=== PATIENT | female | born 1965 | race Caucasian/White ===

== ENCOUNTER → 2017-08-07 15:24 | Outpatient (CLI) | payer OTHER, SELFPAY ==
[2017-08-07 17:53] LABS: Free T3 2.7 pg/mL (2.18-3.98); T4 Free Direct 1.32 ng/dL (0.76-1.46); Thyroid Stim Hormone (TSH) 0.22 uIU/mL (0.358-3.74)
== END ==
PROVIDERS: Family Provider Family Medicine; PCP Family Medicine; Visit Provider Nurse Practitioner
DX: E03.9 Hypothyroidism, unspecified (principal)
CPT/HCPCS: 36415; 84439; 84443; 84481

== ENCOUNTER → 2017-12-25 12:57 | Outpatient (CLI) | payer OTHER, SELFPAY ==
--- NOTE | 2017-12-25 14:58 | PFTCOMP ---
COMPLETE PULMONARY FUNCTION TEST INTERPRETATION Brief HPI: Patient is a 52 year old female, currently under the care of myself, who presents to [facility] for complete pulmonary function tests secondary to diagnosis of COPD. Respiratory therapist reports good effort and reproducible results. Interpretation: Forced expiration spirometry shows a moderate large airways obstructive ventilatory defect with an FEV1 of 60% predicted. There is no significant bronchodilator response by ATS criteria. Spirograms are of good quality and plateau slowly, indicating slowly emptying areas of the lungs. The respiratory flow volume loop shows decreased expiratory flow rates at all lung volumes consistent with airway obstruction. Lung volumes by body plethysmography show a normal total lung capacity at 5.06 L, 102% predicted. All other lung volumes are within normal limits. Diffusion capacity by carbon monoxide is normal at 89% predicted. The airway resistance is elevated. Compared to previous pulmonary function tests from 01/30/2017, there has been a significant improvement in FVC, FEV1 and DLCO by 21%, 22% and 14% respectively. Impression: Irreversible moderate large airways obstructive ventilatory defect with relatively preserved diffusion capacity. There has been significant improvement compared to previous study.
== END ==
PROVIDERS: Family Provider Family Medicine; PCP Family Medicine; Visit Provider Internal Medicine Critical Care Medicine
DX: J44.9 Chronic obstructive pulmonary disease, unspecified (principal)
CPT/HCPCS: 94060; 94726; 94729

== ENCOUNTER → 2018-12-18 06:25 | Outpatient (CLI) | payer OTHER, SELFPAY ==
[2018-07-24 14:13] VITALS: BMI 22.1
--- NOTE | 2018-12-18 06:55 | BI_ITS ---
MAMMOGRAPHY - BILATERAL SCREENING REASON FOR EXAM: Female, 53 years old. Routine annual screening examination. PERTINENT HISTORY: Mother with breast cancer. TECHNIQUE: Digital bilateral breast son (3D mammographic acquisition) in the CC and MLO projections. 2-D mediolateral oblique (MLO) and craniocaudad (CC) views of both breasts were obtained. CAD: Full Field Digital Mammography with Computer Added Detection was performed. COMPARISON: Comparison is made with prior study dated August 15, 2016 and February 07, 2014. FINDINGS: Breast Composition: There are scattered areas of fibroglandular density. There are no dominant masses or suspicious calcifications. No other significant abnormalities are identified. There has been no significant change since the prior study. BI/SCREEN MAMM (CAD) W/SON BILAT IMPRESSION: Stable bilateral screening mammogram. Yearly follow-up mammogram recommended. (A) ASSESSMENT CATEGORY: BIRADS Category 1: Negative. A letter regarding these results will be sent to the patient by the facility within 30 days. Approximately 10% of breast cancers are not detected by mammography. A normal mammogram should not delay biopsy of a clinically suspicious abnormality. [id number] Electronically Signed: Lemuel Dunne, at 8:45 EDT , Service support ,
== END ==
PROVIDERS: Family Provider Family Medicine; Referring Provider Student in an Organized Health Care Education/Training Program; Visit Provider Student in an Organized Health Care Education/Training Program
DX: Z12.31 Encounter for screening mammogram for malignant neoplasm of breast (principal)
CPT/HCPCS: 77063; 77067

== ENCOUNTER → 2019-02-26 12:57 | Outpatient (CLI) | payer OTHER, SELFPAY ==
[2018-07-24 14:13] VITALS: BMI 22.1
--- NOTE | 2019-02-27 07:09 | PFT ---
INTRODUCTION: The patient is a 53-year-old female that presents for pulmonary function studies secondary to a diagnosis of COPD. Respiratory therapy reports good patient effort. Bronchodilators were used during testing. INTERPRETATION: Forced expiration spirometry demonstrates the presence of a moderate large airways obstructive ventilatory defect. There was no significant response to aerosolized bronchodilators. Spirograms are of fair quality and do not plateau indicating slow emptying of the lungs. Body plethysmography was performed and reveals lung volumes to be within normal limits. Diffusing capacity by single breath CO is also within normal limits at 87% of predicted. IMPRESSION: Irreversible moderate large airways obstructive ventilatory defect with preserved lung volumes and diffusing capacity.
== END ==
PROVIDERS: Family Provider Family Medicine; PCP Family Medicine; Referring Provider Nurse Practitioner Acute Care; Visit Provider Nurse Practitioner Acute Care
DX: J44.9 Chronic obstructive pulmonary disease, unspecified (principal)
CPT/HCPCS: 94060; 94726; 94729

== ENCOUNTER → 2019-12-24 14:58 | Outpatient (CLI) | payer OTHER, SELFPAY ==
[2019-12-24 14:43] VITALS: BMI 22.4
[2019-12-24 16:57] LABS: Absolute Lymphocyte Count 3.94 X10^3/uL (0.83-4.51); Absolute Neutrophil Count 3.2 X10^3/uL (2.0-7.7); Basophil# 0.08 X10^3/uL; Eosinophil# 0.09 X10^3/uL; Eosinophils% 1.1 % (0-5); Hematocrit 38.7 % (37-47); Hemoglobin 12.7 g/dL (12.0-15.0); Lymphocyte # 3.94 X10^3/ul; Lymphocyte % 49.4 % (19-41); Mean Corp Hgb Conc 32.8 g/dL (32-36); Mean Corpuscular Hgb 31.8 pg (27.0-32.0); Mean Platelet Vol. 12.2 fl (6.2-12.0); Monocyte# 0.66 X10^3/uL; Monocyte% 8.3 % (0-10); NRBC Flagged by Analyzer 0 % (0-5); Neutrophil # 3.18 X10^3/uL (2.7-7.7); Neutrophil % 39.9 % (47-70); Platelet Count 264 K/mm3 (150-450); RBC Distribution Width CV 13.2 % (11.6-14.6); RBC Distribution Width SD 47.5 fl (35.1-43.9); Red Blood Count 3.99 M/mm3 (4.2-5.4)
[2019-12-24 17:04] LABS: Color, Urine Yellow (Yellow); Glucose, Dipstick Normal (Normal); Ketone-Dipstick Negative (Negative); Leukocyte Esterase-Dipstick Negative /ul (Negative); Nitrite-Dipstick Negative (Negative); Occult Blood-Urine 10 /ul (Negative); Protein-Dipstick Negative (Negative); Specific Gravity, Urine 1.015 (1.002-1.030); Urine Bilirubin Dipstick Negative (Negative); Urine Clarity Sl. Cloudy (Clear); Urine Urobilinogen Normal (Normal)
[2019-12-24 17:18] LABS: ALB/GLOB Ratio 0.9 RATIO (0.9-2.4); AST(SGOT) 16 U/L (15-37); Alanine Aminotransfer ALT/SGPT 22 U/L (13-56); Albumin, Serum 3.7 g/dL (3.2-5.0); Alkaline Phosphatase 60 U/L (45-117); Anion Gap 5 (5-15); BUN 14 mg/dL (7-18); BUN/Creat Ratio 17.9 RATIO (10-20); Bilirubin, Direct 0.09 mg/dL (0.00-0.30); Calcium,Total 8.8 mg/dL (8.5-10.1); Chloride 106 mmol/L (98-107); Cholesterol 169 mg/dL (200); Creatinine, Serum 0.78 mg/dL (0.55-1.02); EST Glomerular Filtration Rate 81 mL/min (>60); Est Glom Filt Rate - Afr Amer 98 mL/min (>60); Globulin 4.1 g/dL (2.2-4.2); Glucose 86 mg/dL (74-106); High Density Lipoprotein 68 mg/dL; LDH 166 U/L (84-246); Phosphorus 4.4 mg/dL (2.5-4.9); Protein, Total 7.8 g/dL (6.4-8.2); Sodium Level 141 mmol/L (136-145); Thyroid Stim Hormone (TSH) 0.77 uIU/mL (0.358-3.74); Triglycerides 146 mg/dL; Uric Acid 3.3 mg/dL (2.6-6.0); Very Low Density Lipoprotein 29 mg/dL (5-40)
== END ==
PROVIDERS: PCP Family Medicine; Visit Provider Internal Medicine
DX: E03.9 Hypothyroidism, unspecified (principal)
CPT/HCPCS: 84443

== ENCOUNTER → 2020-01-20 15:38 | Outpatient (CLI) | payer OTHER, SELFPAY ==
[2019-12-24 14:43] VITALS: BMI 22.4
--- NOTE | 2020-01-20 15:39 | BI_ITS ---
MAMMOGRAPHY - BILATERAL SCREENING REASON FOR EXAM: Female, 54 years old. Routine annual screening examination. PERTINENT HISTORY: Mother with breast cancer. TECHNIQUE: Digital bilateral breast son (3D mammographic acquisition) in the CC and MLO projections. 2-D mediolateral oblique (MLO) and craniocaudad (CC) views of both breasts were obtained. CAD: Full Field Digital Mammography with Computer Added Detection was performed. COMPARISON: Comparison is made with prior study 12/18/2018 and 08/15/2016. FINDINGS: Breast Composition: There are scattered areas of fibroglandular density. There are no dominant masses or suspicious calcifications. Stable asymmetry of breast tissue where more breast tissue is seen in the upper outer quadrant of the left breast as compared to the right side. This is unchanged. No other significant abnormalities are identified. There has been no significant change since the prior study. BI/SCREEN MAMM (CAD) W/SON BILAT IMPRESSION: Stable bilateral screening mammogram. Yearly follow-up mammogram recommended. (A) ASSESSMENT CATEGORY: BIRADS Category 2: Benign. A letter regarding these results will be sent to the patient by the facility within 30 days. Approximately 10% of breast cancers are not detected by mammography. A normal mammogram should not delay biopsy of a clinically suspicious abnormality. [id number] Electronically Signed: Lemuel Dunne, at 8:30 EDT , Service support ,
== END ==
PROVIDERS: PCP Internal Medicine; Referring Provider Internal Medicine; Visit Provider Internal Medicine
DX: Z12.31 Encounter for screening mammogram for malignant neoplasm of breast (principal)
CPT/HCPCS: 77063; 77067

== ENCOUNTER → 2020-01-25 15:00 | Outpatient (CLI) | payer OTHER, SELFPAY ==
[2019-12-24 14:43] VITALS: BMI 22.4
--- NOTE | 2020-01-25 15:06 | CT_ITS ---
STUDY: LOW DOSE CT LUNG CANCER SCREENING REASON FOR EXAM: Female, 54 years old. 40 pack-year smoking history. Previous smoker. RADIATION DOSAGE (If Supplied By Facility): CTDIvol = ( 1.70 ) mGy, DLP = ( 56.58 ) mGycm TECHNIQUE: No contrast was administered. Low dose technique was utilized (average mAS-38 and kVp 120). 1.25 mm axial source images with a slice interval of 1.25-mm were reconstructed in lung windows. 2.5 mm axial source images with a slice interval of 2.5-mm were reconstructed in lung windows. 5.0 mm axial source images with a slice interval of 5.0-mm were reconstructed in soft tissue windows. Nodule measured using lung windows on PACS and/or independent workstation with automated measurement of minimum and maximum diameter. Nodule measurement reported as average diameter rounded to the nearest whole number. Growth is defined as an increase ins size of greater than 1.5 mm. COMPARISON: CT of the chest, 02/12/2016. NODULES: Nodule #: 1 Density: Solid Lung location: Right upper lobe: Pleural based Location in series: Series Number: [id number] Image: 52 Size - D1 x D2 mm: 3 x 3 mm: 3 mm average diameter Margin: Smooth Shape: Rounded Calcification: Yes Fat: No Temporal comparison: Stable Total lung nodules (excluding granulomas): 0 Emphysema: There are diffuse emphysematous changes stable when compared to prior study. Endobronchial lesion: None Aorta: Minimal atherosclerotic changes stable when compared to the prior study. Coronary arteries: Normal Heart: Normal Pulmonary artery: Normal Mediastinal nodes: Not Other chest and abdominal findings: Minimal degenerative changes of the thoracic spine. Evidence of cholecystectomy and splenectomy. CT/Low Dose CT Lung Screening IMPRESSION: 1. Atherosclerotic changes of the lungs. 2. Calcified granuloma in the right upper lobe. 3. Minimal atherosclerotic changes of the thoracic aorta. Lung-RADS category 1 - Continue annual screening with LDCT in 12 months. IMPORTANT NOTES FOR USE: ACR Lung-RADS Version 1.0 Assessment Categories Release Date: August 16, 2013 Category: Coded 0-4 bases on nodule(s) with highest degree of suspicion. Negative screen is defined as categories 1 and 2; a positive screen is defined as categories 3 and 4. Category 3 and 4A nodules that are unchanged on interval CT should be coded as category 2, and individuals returned to screening in 12 months. Category 4X: Category 3 or 4 nodules with additional imaging findings that increase the suspicion of lung cancer, such as spiculation, GGN that doubles in size in 1 year, enlarged lymph notes, etc. Category Modifiers: S (significant finding unrelated to lung cancer) and C (prior history of treated lung cancer) may be added to the 0-4 Lung-RADS Electronically Signed: Amador Jason DO at 16:08 EDT Tel [phone], Service support ,
== END ==
PROVIDERS: PCP Internal Medicine; Referring Provider Nurse Practitioner Family; Visit Provider Nurse Practitioner Family
DX: Z12.2 Encounter for screening for malignant neoplasm of respiratory organs (principal); Z87.891 Personal history of nicotine dependence
CPT/HCPCS: G0297

== ENCOUNTER → 2020-05-26 14:34 | Outpatient (CLI) | payer OTHER, SELFPAY ==
[2020-02-29 14:08] VITALS: BMI 24.7
[2020-05-26 17:07] LABS: Thyroid Stim Hormone (TSH) 0.35 uIU/mL (0.358-3.74)
== END ==
PROVIDERS: PCP Internal Medicine; Referring Provider Internal Medicine Endocrinology, Diabetes & Metabolism; Visit Provider Internal Medicine Endocrinology, Diabetes & Metabolism
DX: E89.0 Postprocedural hypothyroidism (principal)
CPT/HCPCS: 36415; 84439; 84443

== ENCOUNTER → 2020-12-28 12:49 | Outpatient (CLI) | payer OTHER, SELFPAY ==
[2020-08-11 14:53] VITALS: BMI 25.2
--- NOTE | 2020-12-29 11:10 | PFT ---
INTRODUCTION: The patient is a 55-year-old female that presents for pulmonary function studies secondary to a diagnosis of COPD. Respiratory therapy reports good patient effort. Bronchodilators were used during testing. INTERPRETATION: Forced expiration spirometry demonstrates the presence of a moderately severe large airways obstructive ventilatory defect. There was no significant response to aerosolized bronchodilators. Spirograms are of good quality but do not plateau indicating slow emptying of the lungs. Body plethysmography was performed and revealed a decreased TLC to 3.65 L, 74% of predicted, indicative of a mild restrictive ventilatory impairment. Diffusing capacity by single breath CO is within normal limits. IMPRESSION: Irreversible moderately severe mixed ventilatory defect with preserved diffusing capacity.
== END ==
PROVIDERS: PCP Internal Medicine; Referring Provider Internal Medicine Critical Care Medicine; Visit Provider Internal Medicine Critical Care Medicine
DX: J44.9 Chronic obstructive pulmonary disease, unspecified (principal)
CPT/HCPCS: 94060; 94726; 94729

== ENCOUNTER → 2021-03-01 15:41 | Outpatient (CLI) | payer OTHER, SELFPAY ==
[2021-03-01 16:58] LABS: T4 Free Direct 1.09 ng/dL (0.76-1.46); Thyroid Stim Hormone (TSH) 2.79 uIU/mL (0.358-3.74)
== END ==
PROVIDERS: PCP Internal Medicine; Referring Provider Nurse Practitioner Family; Visit Provider Nurse Practitioner Family
DX: E89.0 Postprocedural hypothyroidism (principal)
CPT/HCPCS: 36415; 84439; 84443

== ENCOUNTER → 2021-03-20 15:09 | Outpatient (CLI) | payer OTHER, SELFPAY ==
--- NOTE | 2021-03-20 15:11 | CT_ITS ---
STUDY: LOW DOSE CT LUNG CANCER SCREENING REASON FOR EXAM: Female, 55 years old. Lung cancer screening -- and gt;30 pk yr hx; former smoker; asymptomatic RADIATION DOSAGE (If Supplied By Facility): CTDIvol = ( 2.01 ) mGy, DLP = ( 69.72 ) mGycm TECHNIQUE: No contrast was administered. Low dose technique was utilized (average mAS-38 and kVp 120). 1.25 mm axial source images with a slice interval of 1.25-mm were reconstructed in lung windows. 2.5 mm axial source images with a slice interval of 2.5-mm were reconstructed in lung windows. 5.0 mm axial source images with a slice interval of 5.0-mm were reconstructed in soft tissue windows. Nodule measured using lung windows on PACS and/or independent workstation with automated measurement of minimum and maximum diameter. Nodule measurement reported as average diameter rounded to the nearest whole number. Growth is defined as an increase ins size of greater than 1.5 mm. COMPARISON: Comparison is made with prior examination 01/25/2020. NODULES: Stable 3 mm noncalcified nodule in the right upper lobe. This is pleural-based. Emphysema: Stable scarring and emphysematous changes in both upper lobes. Mild linear scarring in the anterior medial aspect of the right middle lobe as well as the lingular segment of the left upper lobe. Endobronchial lesion: None Aorta: Mild atherosclerotic calcifications of the aortic arch. Coronary arteries: Unremarkable Heart: Unremarkable Pulmonary artery: Unremarkable Mediastinal nodes: Unremarkable Other chest and abdominal findings: CT/Low Dose CT Lung Screening IMPRESSION: Lung-RADS category 2 - Continue annual screening with LDCT in 12 months. IMPORTANT NOTES FOR USE: ACR Lung-RADS Version 1.1 Assessment Categories Release Date: 2018 Category: Coded 0-4 bases on nodule(s) with highest degree of suspicion. Negative screen is defined as categories 1 and 2; a positive screen is defined as categories 3 and 4. Category 3 and 4A nodules that are unchanged on interval CT should be coded as category 2, and individuals returned to screening in 12 months. Category 4X: Category 3 or 4 nodules with additional imaging findings that increase the suspicion of lung cancer, such as spiculation, GGN that doubles in size in 1 year, enlarged lymph notes, etc. Category Modifiers: S (significant finding unrelated to lung cancer) Electronically Signed: Lemuel Dunne MD at 15:31 EST , Service support ,
== END ==
PROVIDERS: PCP Internal Medicine; Referring Provider Nurse Practitioner Family; Visit Provider Nurse Practitioner Family
DX: Z87.891 Personal history of nicotine dependence (principal); Z12.2 Encounter for screening for malignant neoplasm of respiratory organs
CPT/HCPCS: 71271

== ENCOUNTER → 2021-04-17 15:56 | Outpatient (CLI) | payer OTHER, SELFPAY ==
--- NOTE | 2021-04-17 15:58 | BI_ITS ---
MAMMOGRAPHY - BILATERAL SCREENING 3-D TOMOSYNTHESIS REASON FOR EXAM: Female, 55 years old. Breast Cancer Screening PERTINENT HISTORY: No significant family history. TECHNIQUE: 2-D mammograms and 3-D Tomosynthesis of the breast (s) were performed. CAD was performed. COMPARISON: 01/20/2020 FINDINGS: The breast composition is composed of scattered fibroglandular density. Scattered benign calcifications are seen. No dense spiculated masses or suspicious microcalcifications are identified. No architectural distortion is identified. There is no skin thickening or retraction. There has been no significant change since the prior study. BI/SCRN MAMM (CAD)W/SON BILAT IMPRESSION: No mammographic signs of malignancy. Routine yearly mammograms recommended. ASSESSMENT CATEGORY: BIRADS Category 1: Negative. A letter regarding these results will be sent to the patient by the facility within 30 days. FOLLOW UP RECOMMENDATION: Yearly follow up mammogram recommended. (A) Approximately 10% of breast cancers are not detected by mammography. A normal mammogram should not delay biopsy of a clinically suspicious abnormality. Electronically Signed: Virgilio Govea MD at 16:37 EST Tel , Service support ,
== END ==
PROVIDERS: PCP Internal Medicine; Referring Provider Internal Medicine; Visit Provider Internal Medicine
DX: Z12.31 Encounter for screening mammogram for malignant neoplasm of breast (principal)
CPT/HCPCS: 77063; 77067

== ENCOUNTER 2021-06-29 12:51 | Outpatient (CLI) | payer OTHER, SELFPAY ==
--- NOTE | 2021-06-30 07:22 | PFT_ITS ---
INTRODUCTION: The patient is a 55-year-old female that presents for pulmonary function studies secondary to a diagnosis of COPD. Respiratory therapy reported good patient effort. Bronchodilators were used during testing. INTERPRETATION: Forced expiration spirometry demonstrates the presence of a moderately severe large airways obstructive ventilatory defect. There was no significant response to aerosolized bronchodilators. Spirograms are of good quality but do not plateau, indicating slow emptying of the lungs. Body plethysmography was performed and revealed lung volumes to be within normal limits. Diffusing capacity by single breath CO was also within normal limits. When compared to previous pulmonary function studies in February 2019, there has been a 16% r eduction in FEV1. IMPRESSION: Irreversible moderately severe large airways obstructive ventilatory defect with preserved lung volumes and diffusing capacity.
== END 2021-06-29 23:59 | disposition home or self-care (01) ==
LOC: PSN 12:51
PROVIDERS: PCP Internal Medicine; Visit Provider Internal Medicine Critical Care Medicine
DX: J44.9 Chronic obstructive pulmonary disease, unspecified (principal)
CPT/HCPCS: 94060; 94726; 94729

== ENCOUNTER → 2022-02-06 | Outpatient (CLI) | payer OTHER, SELFPAY ==
[2022-02-06 12:42] LABS: T4 Free Direct 1.04 ng/dL (0.76-1.46); Thyroid Stim Hormone (TSH) 9.86 uIU/mL (0.358-3.74)
== END | disposition home or self-care (01) ==
LOC: BIMLAB 09:29
PROVIDERS: PCP Internal Medicine; Referring Provider Physician Assistant; Visit Provider Physician Assistant
DX: Z00.00 Encounter for general adult medical examination without abnormal findings (principal); E89.0 Postprocedural hypothyroidism
CPT/HCPCS: 36415; 84439; 84443

== ENCOUNTER → 2022-03-20 | Outpatient (CLI) | payer OTHER, SELFPAY ==
--- NOTE | 2022-03-20 14:47 | CT_ITS ---
STUDY: LOW DOSE CT LUNG CANCER SCREENING REASON FOR EXAM: Female, 56 years old. And gt;30 pack years quit 2018 RADIATION DOSAGE (If Supplied By Facility): CTDIvol = ( 2.01 ) mGy, DLP = ( 64.44 ) mGycm TECHNIQUE: No contrast was administered. Low dose technique was utilized (average mAS-38 and kVp 120). 1.25 mm axial source images with a slice interval of 1.25-mm were reconstructed in lung windows. 2.5 mm axial source images with a slice interval of 2.5-mm were reconstructed in lung windows. 5.0 mm axial source images with a slice interval of 5.0-mm were reconstructed in soft tissue windows. COMPARISON: Comparison is made with prior study dated 03/20/2021. NODULES: Stable 3 mm calcified nodule in the posterior aspect of the right upper lobe as seen on axial image #37. This is in keeping with calcified granulomata. Emphysema: There is evidence of hyperinflation and scarring in both upper lobes as well as in the anterior medial aspect of the right middle lobe as well as in the lingular segment of the left upper lobe. Endobronchial lesion: Unremarkable Aorta: Calcification of the aortic arch. CORONARY ARTERIES: Coronary artery calcification is not seen. Heart: Unremarkable Pulmonary artery: Unremarkable Mediastinal nodes: Unremarkable Other chest and abdominal findings: CT/Low Dose CT Lung Screening IMPRESSION: Lung-RADS category 2 - Continue annual screening with LDCT in 12 months. IMPORTANT NOTES FOR USE: ACR Lung-RADS Version 1.1 Assessment Categories Release Date: 2018 Category: Coded 0-4 bases on nodule(s) with highest degree of suspicion. Negative screen is defined as categories 1 and 2; a positive screen is defined as categories 3 and 4. Category 3 and 4A nodules that are unchanged on interval CT should be coded as category 2, and individuals returned to screening in 12 months. Category 4X: Category 3 or 4 nodules with additional imaging findings that increase the suspicion of lung cancer, such as spiculation, GGN that doubles in size in 1 year, enlarged lymph notes, etc. Category Modifiers: S (significant finding unrelated to lung cancer) Electronically Signed: Lemuel Dunne MD at 15:16 EST ,
== END | disposition home or self-care (01) ==
LOC: CT 14:47
PROVIDERS: PCP Internal Medicine; Referring Provider Nurse Practitioner Acute Care; Visit Provider Nurse Practitioner Acute Care
DX: Z12.2 Encounter for screening for malignant neoplasm of respiratory organs (principal); Z87.891 Personal history of nicotine dependence
CPT/HCPCS: 71271

== ENCOUNTER → 2022-04-19 | Outpatient (CLI) | payer OTHER, SELFPAY ==
--- NOTE | 2022-04-19 14:48 | BI_ITS ---
MAMMOGRAPHY - BILATERAL SCREENING REASON FOR EXAM: Female, 56 years old. Routine annual screening examination. PERTINENT HISTORY: Mother with breast cancer. TECHNIQUE: Digital bilateral breast son (3D mammographic acquisition) in the CC and MLO projections. 2-D mediolateral oblique (MLO) and craniocaudad (CC) views of both breasts were obtained. CAD: Full Field Digital Mammography with Computer Added Detection was performed. COMPARISON: Comparison is made with prior study dated 04/17/2021 and 01/20/2020. FINDINGS: Breast Composition: There are scattered areas of fibroglandular density. There are no dominant masses or suspicious calcifications. No other significant abnormalities are identified. There has been no significant change since the prior study. BI/SCRN MAMM (CAD)W/SON BILAT IMPRESSION: Stable bilateral screening mammogram. Yearly follow-up mammogram recommended. (A) ASSESSMENT CATEGORY: BIRADS Category 1: Negative. A letter regarding these results will be sent to the patient by the facility within 30 days. Approximately 10% of breast cancers are not detected by mammography. A normal mammogram should not delay biopsy of a clinically suspicious abnormality. [id number] Electronically Signed: Lemuel Dunne MD at 8:54 EST ,
== END | disposition home or self-care (01) ==
LOC: OPBI 14:47
PROVIDERS: PCP Internal Medicine; Visit Provider Physician Assistant
DX: Z12.31 Encounter for screening mammogram for malignant neoplasm of breast (principal); Z80.3 Family history of malignant neoplasm of breast
CPT/HCPCS: 77063; 77067

== ENCOUNTER → 2022-04-23 | Outpatient (CLI) | payer OTHER, SELFPAY ==
--- NOTE | 2022-04-23 16:49 | RAD_ITS ---
INDICATION: Left knee pain EXAMINATION/TECHNIQUE: X-RAY - LEFT XR Knee Complete 4 Views or More 4 VIEWS COMPARISON: None. FINDINGS: SOFT TISSUES: No soft tissue swelling or gas. No radiopaque foreign body. BONES/JOINTS: No acute fracture or subluxation.. Normal alignment. Narrowed medial compartment of the joint... No sclerotic or destructive changes observed. RAD/Knee 4 or More Views IMPRESSION: Degenerative changes. No acute fracture or other significant bony pathology Electronically Signed: Stevenson Cabrera MD at 17:02 EST ,
== END | disposition home or self-care (01) ==
LOC: MTRAD 16:49
PROVIDERS: PCP Internal Medicine; Referring Provider Physician Assistant Surgical; Visit Provider Physician Assistant Surgical
DX: M25.562 Pain in left knee (principal)
CPT/HCPCS: 73564

== ENCOUNTER → 2022-08-21 | Outpatient (CLI) | payer OTHER, SELFPAY ==
[2022-08-21 17:28] LABS: T4 Free Direct 0.89 ng/dL (0.76-1.46); Thyroid Stim Hormone (TSH) 5.04 uIU/mL (0.358-3.74)
== END | disposition home or self-care (01) ==
LOC: BIMLAB 15:41
PROVIDERS: PCP Internal Medicine; Referring Provider Internal Medicine Endocrinology, Diabetes & Metabolism; Visit Provider Internal Medicine Endocrinology, Diabetes & Metabolism
DX: E03.9 Hypothyroidism, unspecified (principal)
CPT/HCPCS: 36415; 84439; 84443

== ENCOUNTER → 2022-09-24 | Outpatient (CLI) | payer OTHER, SELFPAY ==
--- NOTE | 2022-09-24 14:13 | BD_ITS ---
STUDY: DUAL ENERGY X-RAY ABSORPTIOMETRY / DXA REASON FOR EXAM: Female, 57 years old. Post Menopausal TECHNIQUE: Bone Mineral Density (BMD) measurements of lumbar spine and bilateral hips were obtained. COMPARISON: None. FINDINGS: Lumbar Spine (L1-L4): g/cm2 (0.780) / T-score (-2.3) / Z-score (-1.1) Findings are suggestive of osteopenia with a high fracture risk. Left Femur Total: g/cm2 (0.732) / T-score (-1.7) / Z-score (-0.9) Left Femoral Neck: g/cm2 (0.576) / T-score (-2.5) / Z-score (-1.3) Right Femur Total: g/cm2 (0.736) / T-score (-1.7) / Z-score (-0.8) Right Femoral Neck: g/cm2 (0.613) / T-score (-2.1) / Z-score (-0.9) BD/Dexa Bone Density Study IMPRESSION: The patient is considered osteopenic as outlined below according to World [employer] Organization (WHO) criteria with a high fracture risk. Reference Information: The T-score is the number of standard deviations above or below the standard which is normal for young adults at their peak bone mineral density. The World Health Organization (WHO) interprets the T-scores as follows: Above -1 Normal bone density Between -1 and -2.5 Osteopenia Equal to / or below -2.5 Osteoporosis As a practical clinical guideline, osteopenia may be graded as follows: Mild -1 through -1.5 Moderate -1.6 through -2.0 Severe -2.1 through -2.4 The Z-score is the number of standard deviations above or below age-matched controls. A Z-score of less than -1.5 would be considered abnormal. References: 1. NIH Osteoporosis and Related Bone Diseases www osteo.org 2. International Society for Clinical Densitometry www iscd.org 3. National Osteoporosis Foundation www nof.org Electronically Signed: Lemuel Dunne MD at 14:08 EDT ,
== END | disposition home or self-care (01) ==
LOC: OPBD 14:00
PROVIDERS: PCP Internal Medicine; Referring Provider Internal Medicine; Visit Provider Internal Medicine
DX: Z78.0 Asymptomatic menopausal state (principal)
CPT/HCPCS: 77080

== ENCOUNTER → 2022-10-30 | Outpatient (CLI) | payer OTHER, SELFPAY ==
[2022-11-04 14:08] LABS: HPV APTIMA, High Risk Negative (Negative)
== END | disposition home or self-care (01) ==
PROVIDERS: Referring Provider Registered Nurse; Visit Provider Registered Nurse
DX: Z12.4 Encounter for screening for malignant neoplasm of cervix (principal)
CPT/HCPCS: 87624; 88175; G0145

== ENCOUNTER → 2022-11-06 | Outpatient (CLI) | payer OTHER, SELFPAY ==
[2022-11-06 17:27] LABS: Anion Gap 5 (5-15); BUN 19 mg/dL (7-18); BUN/Creat Ratio 22.7 RATIO (10-20); Calcium,Total 8.9 mg/dL (8.5-10.1); Chloride 105 mmol/L (98-107); Creatinine, Serum 0.84 mg/dL (0.55-1.02); EST Glomerular Filtration Rate 74 mL/min (>60); Est Glom Filt Rate - Afr Amer 90 mL/min (>60); Glucose 85 mg/dL (74-106); Potassium 3.9 mmol/L (3.5-5.1); Sodium Level 138 mmol/L (136-145); Thyroid Stim Hormone (TSH) 5.46 uIU/mL (0.358-3.74)
[2022-11-06 17:48] LABS: Vitamin D,25 Hydroxy 38.4 ng/mL
== END | disposition home or self-care (01) ==
LOC: BIMLAB 15:47
PROVIDERS: Visit Provider Internal Medicine
DX: M85.80 Other specified disorders of bone density and structure, unspecified site (principal); E03.9 Hypothyroidism, unspecified
CPT/HCPCS: 36415; 80048; 82306; 84443

== ENCOUNTER → 2022-11-26 | Outpatient (CLI) | payer OTHER, SELFPAY ==
[2022-11-26 16:30] LABS: Thyroid Stim Hormone (TSH) 1.28 uIU/mL (0.358-3.74)
== END | disposition home or self-care (01) ==
LOC: BIMLAB 15:20
PROVIDERS: PCP Internal Medicine; Visit Provider Internal Medicine
DX: E89.0 Postprocedural hypothyroidism (principal)
CPT/HCPCS: 36415; 84443

== ENCOUNTER → 2023-03-21 | Outpatient (CLI) | payer OTHER, SELFPAY ==
--- NOTE | 2023-03-21 16:46 | CT_ITS ---
STUDY: LOW DOSE CT LUNG CANCER SCREENING REASON FOR EXAM: Female, 57 years old. Screening RADIATION DOSAGE (If Supplied By Facility): CTDIvol = ( 3.02 ) mGy, DLP = ( 98.17 ) mGycm TECHNIQUE: No contrast was administered. Low dose technique was utilized (average mAS-38 and kVp 120). 1.25 mm axial source images with a slice interval of 1.25-mm were reconstructed in lung windows. 2.5 mm axial source images with a slice interval of 2.5-mm were reconstructed in lung windows. 5.0 mm axial source images with a slice interval of 5.0-mm were reconstructed in soft tissue windows. COMPARISON: 03/20/2022 Emphysema: Mild bilateral apical scarring. Mild emphysema. No noncalcified nodule or mass. Endobronchial lesion: None Aorta: No aortic aneurysm. CORONARY ARTERIES: Coronary artery calcification is not seen. Heart: No cardiomegaly. Pulmonary artery: Normal Mediastinal nodes: Normal Other chest and abdominal findings: Status post cholecystectomy. Mild dextro scoliosis of the thoracic spine. CT/Low Dose CT Lung Screening IMPRESSION: Lung-RADS category 1 - Continue annual screening with LDCT in 12 months. IMPORTANT NOTES FOR USE: ACR Lung-RADS Version 1.1 Assessment Categories Release Date: 2018 Category: Coded 0-4 bases on nodule(s) with highest degree of suspicion. Negative screen is defined as categories 1 and 2; a positive screen is defined as categories 3 and 4. Category 3 and 4A nodules that are unchanged on interval CT should be coded as category 2, and individuals returned to screening in 12 months. Category 4X: Category 3 or 4 nodules with additional imaging findings that increase the suspicion of lung cancer, such as spiculation, GGN that doubles in size in 1 year, enlarged lymph notes, etc. Category Modifiers: S (significant finding unrelated to lung cancer) Electronically Signed: Virgilio Govea MD at 22:54 EST ,
== END | disposition home or self-care (01) ==
LOC: CT 16:45
PROVIDERS: PCP Internal Medicine; Referring Provider Internal Medicine Critical Care Medicine; Visit Provider Internal Medicine Critical Care Medicine
DX: Z12.2 Encounter for screening for malignant neoplasm of respiratory organs (principal); F17.210 Nicotine dependence, cigarettes, uncomplicated
CPT/HCPCS: 71271

== ENCOUNTER → 2023-04-23 | Outpatient (CLI) | payer OTHER, SELFPAY ==
--- NOTE | 2023-04-23 14:45 | BI_ITS ---
MAMMOGRAPHY - BILATERAL SCREENING REASON FOR EXAM: Female, 57 years old. Routine annual screening examination. PERTINENT HISTORY: Mother with breast cancer. TECHNIQUE: Digital bilateral breast son (3D mammographic acquisition) in the CC and MLO projections. 2-D mediolateral oblique (MLO) and craniocaudad (CC) views of both breasts were obtained. CAD: Full Field Digital Mammography with Computer Added Detection was performed. COMPARISON: Comparison is made with prior study dated April 19, 2022 and April 09, 2021. FINDINGS: Breast Composition: There are scattered areas of fibroglandular density. There are no dominant masses or suspicious calcifications. No other significant abnormalities are identified. There has been no significant change since the prior study. BI/SCRN MAMM (CAD)W/SON BILAT IMPRESSION: Stable bilateral screening mammogram. Yearly follow-up mammogram recommended. (A) ASSESSMENT CATEGORY: BIRADS Category 1: Negative. A letter regarding these results will be sent to the patient by the facility within 30 days. Approximately 10% of breast cancers are not detected by mammography. A normal mammogram should not delay biopsy of a clinically suspicious abnormality. [id number] Electronically Signed: Lemuel Dunne MD at 13:35 EST ,
--- OUTSIDE RECORDS SUMMARY | 2023-04-23 15:26 | XMS RPT_ITS | CCD ---
Author Name Unknown Address [address] [place] [id number] Organization [facility] Care Team Providers Care Biological Lab Technician Name Role Phone SHAUN SALDAÑA MD Admitting Unavailable SHAUN SALDAÑA MD Attending Unavailable SHAUN SALDAÑA MD Primary Care Unavailable SHAUN SALDAÑA MD Consulting Unavailable PROVIDER, UNKNOWN Consulting Unavailable PROVIDER, UNKNOWN Consulting Unavailable Ya Garibay Unavailable Misael Kincaid Unavailable Taina Arnold Unavailable Unavailable Unavailable Unavailable Ya Garibay Primary Care Provider [phone] Allergies Allergy Classification Reported Allergen(s) Allergy Type Date of Onset Reaction(s) Facility (1 source) buPROPion; Translations: [Wellbutrin *ANTIDEPRESSANTS *] Drug Allergy [facility] Work Phone: Medications Completed/Discontinued Medications Medication Drug Class(es) Dates Sig (Normalized) Sig (Original) 200 actuat albuterol 0.09 mg/actuat metered dose inhaler (1 source) beta2-Adrenergic Agonist Start: 05-01-2012 End: 11-06-2012 PROVENTIL HFA, 108 (90 Base)MCG/ACT (Inhalation Aerosol Solution) 2 (two) Aerosol Soln q 6 hr prn for 0 days Quantity: 1 {Aerosol_Soln} Refills: 0 Ordered: 06-Nov-2012 Ginny Almendarez CMA Start : 01-May-2012 End : 06-Nov-2012 Inactive amoxicillin 500 mg oral capsule (1 source) Penicillin-class Antibacterial End: 04-06-2010 take 4 capsules by mouth every hour AMOXIL, 500MG (Oral Capsule) 4 caps 1 hr prior to dental procedure for 0 days Refills: 0 Ordered: 03-Oct-2009 Taian Arnlod RN End : 06-Apr-2010 Discontinued Comments: This order discontinued per -[facility]. Problems Active Problems Problem Classification Problem Date Documented Date Episodic/Chronic Anxiety disorders (6 sources) Anxiety; Translations: [Anxiety] 05-12-2015 Chronic Chronic obstructive pulmonary disease and bronchiectasis (3 sources) Chronic obstructive pulmonary disease and bronchiectasis Esophageal disorders (1 source) Diverticulum of esophagus, acquired; Translations: [DIVERTICULUM, ESOPHAGUS, ACQUIRED] 05-12-2015 Episodic Fever of unknown origin (3 sources) Fever with chills; Translations: [Fever] 05-12-2015 Episodic Genitourinary symptoms and ill-defined conditions (2 sources) Dysuria; Translations: [Dysuria] Resolved: 03-22-2009 03-22-2009 Episodic Immunizations and screening for infectious disease (1 source) Need for prophylactic vaccination and inoculation against influenza Episodic Influenza (2 sources) Influenza; Translations: [Flu] 05-12-2015 Episodic Menopausal disorders (1 source) Menopausal flushing; Translations: [Hot flashes] 05-12-2015 Chronic Past or Other Problems Problem Classification Problem Date Documented Da te Episodic/Chronic Adjustment disorders (1 source) Grief finding; Translations: [Grief] Resolved: 05-12-2015 05-12-2015 Chronic Administrative/social admission (1 source) Medical examinations/report s status; Translations: [Well woman exam] Resolved: 05-12-2015 05-12-2015 Episodic Chronic obstructive pulmonary disease and bronchiectasis (1 source) Bronchitis; Translations: [Bronchitis] Resolved: 03-22-2009 05-12-2015 Episodic Headache; including migraine (1 source) Headache; including migraine Mood disorders (1 source) Mood disorders Other circulatory disease (1 source) Abnormal chest sounds; Translations: [Abnormal lung sounds] Resolved: 05-12-2015 05-12-2015 Episodic Residual codes; unclassified (1 source) Influenza-like symptoms; Translations: [Flu-like symptoms] Resolved: 05-12-2015 05-12-2015 Episodic Residual codes; unclassified (1 source) Generalized aches and pains; Translations: [Body aches] Resolved: 03-30-2015 05-12-2015 Episodic Unclassified (1 source) Flu-like symptoms Unclassified (1 source) LOWER EXTREMITITY EDEMA (782.3) Unclassified (1 source) Allergy to Wellbutrin (Renamed from Wellbutrin) 05-12-2015 Unclassified (1 source) Deliveries (Parity); Translations: [Deliveries (Parity)] 05-12-2015 Results Test Name Value Interpretation Reference Range Facil ity Vital Signs Date Time Vital Sign Value Performing Clinician Facility 05-12-2015 14:58-0500 BMI (Body Mass Index) 23.13 kg/m2 Ya Montemayor [facility] Work Phone: 05-12-2015 14:58-0500 Body weight 63.05 kg Ya [facility] Work Phone: 05-12-2015 14:58-0500 BP Diastolic 60 mm[Hg] Ya [facility] Work Phone: Encounters Encounter Date Encounter Type Care Provider Facility Start: 01-02-2019 Encounter for genera l adult medical examination without abnormal [facility] Start: 01-02-2019 End: 01-02-2019 Patient encounter procedure SHAUN DE LA ROS[facility] Start: 05-12-2015 End: 05-12-2015 Office outpatient visit 15 minutes Ya Garibay [facility] Start: 03-30-2015 End: 03-30-2015 Office outpatient visit 25 minutes Ya Garibay [facility] Start: 05-25-2014 End: 05-25-2014 Office outpatient visit 15 minutes Ya Mont[facility] Start: 01-31-2014 End: 01-31-2014 Periodic preventive med est patient 40-64yrs Ya Montemay[facility] Start: 06-29-2013 End: 06-29-2013 Annotation/Addendum Ya Montemayor [facility] Start: 06-29-2013 End: 06-29-2013 Office outpatient visit 15 minutes Ya Montem[facility] Start: 11-06-2012 End: 11-06-2012 Office outpatient visit 25 minutes Ya Montemay[facility] Start: 08-12-2012 End: 08-12-2012 Phone Encounter Ya Lani [facility] Start: 08-12-2012 End: 08-12-2012 Phone Encounter Ya Garibay [facility] Start: 05-01-2012 End: 05-01-2012 Patient encounter procedure Ya Garibay [facility] Start: 03-23-2012 End: 03-23-2012 Annotation/Addendum Ya Garibay [facility] Start: 03-18-2012 End: 03-18-2012 Office outpatient visit 15 minutes Ya Garibay [facility] Start: 10-11-2011 End: 10-11-2011 Office outpatient visit 15 minutes Ya Garibay [facility] Start: 09-27-2011 End: 09-27-2011 Office outpatient visit 15 minutes Ya Garibay [facility] Start: 07-15-2011 End: 07-15-2011 Patient encounter procedure Ya Garibay [facility] Start: 04-03-2011 End: 04-03-2011 Telephone encounter Rj Buchanan Work Phone: General Surgery Procedures Date Procedure Procedure Detail Performing Clinician Thyroid removed Taina anhtony Plan of Treatment Date Care Activity Detail Author Start: 12-20-2020 Influenza [facility] Start: 05-12-2015 TSH Qn TSH (46280) [facility] Work Phone: Start: 05-12-2015 Lipid panel LIPID PANEL (00512) [facility] Work Phone: Start: 05-12-2015 Cobalamin (Vitamin B12) [Mass/Vol] VITAMIN B-12 (CYANOCOBALAMIN) (50139) [facility] Work Phone: Start: 05-12-2015 Provider Instructions for Treatment [facility] Work Phone: Start: 03-30-2015 Patient Education Pneumonia *: breathing [facility] Work Phone: Start: 03-30-2015 Provider Instructions for Treatment Follow up in 1 month- gen med visit [facility] Work Phone: Start: 2014 Screening for malignant neoplasm of colon [facility] Start: 2014 SHINGRIX VACCINE (1 of 2) SHINGRIX VACCINE (1 of 2) [facility] Start: 05-25-2014 Patient Education [facility] Work Phone: Start: 05-25-2014 Procedure Education Eprescribed prescriptions (G8553) [facility] Work Phone: Start: 06-29-2013 Provider Instructions for Treatment Follow up if no improvement or if symptoms worsen [facility] Work Phone: Start: 08-12-2012 TSH Qn TSH (78078) [facility] Work Phone: Start: 08-12-2012 Free T4 [Mass/Vol] T4, FREE (THYROXINE) (92241) [facility] Work Phone: Start: 08-12-2012 Free T3 [Mass/Vol] T3, FREE (TRIDOTHYRONINE) (09808) [facility] Work Phone: Start: 05-01-2012 Iaadiadoo influenza Rapid Flu (95847 x 2) [facility] Work Phone: Start: 03-18-2012 Patient Education Sore Throat *: acute pharyngitis [facility] Work Phone: Start: 03-18-2012 Provider Instructions for Treatment [facility] Work Phone: Start: 09-27-2011 Provider Instructions for Treatment Follow up in 2 weeks [facility] Work Phone: Start: 09-27-2011 Gonadotropin luteinizing hormone GONADOTROPIN-LH (03067) [facility] Work Phone: Start: 09-27-2011 Gonadotropin follicle stimulating hormone GONADOTROPIN-FSH (22129) [facility] Work Phone: Start: 07-15-2011 Provider Instructions for Treatment *Antibiotic Usage Education - Female [facility] Work Phone: Start: 03-27-2011 S. pyogenes Ag IA Ql (Unsp spec) Rapid Strep Test, Office (88769) [facility] Work Phone: Start: 03-27-2011 Provider Instructions for Treatment [facility] Work Phone: Start: 02-01-2011 Provider Instructions for Treatment [facility] Work Phone: Start: 01-04-2011 TSH Qn TSH (40709) [facility] Work Phone: Start: 01-04-2011 Assay of estradiol ESTRADIOL (95159) [facility] Work Phone: Start: 01-04-2011 Gonadotropin luteinizing hormone GONADOTROPIN-LH (10702) [facility] Work Phone: Start: 01-04-2011 Gonadotropin follicle stimulating hormone GONADOTROPIN-FSH (29528) [facility] Work Phone: Start: 01-04-2011 Provider Instructions for Treatment Follow up in 1 month [facility] Work Phone: Start: 07-30-2010 Provider Instructions for Treatment [facility] Work Phone: Start: 07-13-2010 Provider Instructions for Treatment [facility] Work Phone: Start: 07-02-2010 TSH Qn TSH (03533) [facility] Work Phone: Start: 07-02-2010 Free T4 [Mass/Vol] T4, FREE (THYROXINE) (89038) [facility] Work Phone: Start: 07-02-2010 Free T3 [Mass/Vol] T3, FREE (TRIDOTHYRONINE) (99817) [facility] Work Phone: Start: 07-02-2010 Provider Instructions for Treatment [facility] Work Phone: Start: 06-25-2010 Free T3 [Mass/Vol] T3, FREE (TRIDOTHYRONINE) (15927) [facility] Work Phone: Start: 06-25-2010 Free T4 [Mass/Vol] T4, FREE (THYROXINE) (22448) [facility] Work Phone: Start: 06-25-2010 TSH Qn TSH (95306) [facility] Work Phone: Immunizations Immunization Date Immunization Notes Care Provider Marlys nye 01-19-2010 pneumococcal polysaccharide vaccine, 23 valent Rj Buchanan Work Phone: [facility] Payers Date Payer Category Payer Unknown [employer] PAY SELF PAY [id number]-Present [phone] [place] [address] Indemnity [id number] 2006 Unknown [employer] [id number] 2006-2014 Indemnity [id number] 1964 Unknown [id number] Unknown [id number] Unknown [facility] Social History Date Type Detail Facility Caffeine Use Caffeine Use [facility] Work Phone: Note 05-13-2011 Telephone Encounter - Lindsay Umaña Rn - 05/13/2011 11:12 AM EST Note Date & Type Note Facility 05-13-2011 Miscellaneous Notes Received [facility] papers on 04/03. Filled out and signed by Dr Buchanan and faxed to pt employer at [phone] documented in this encounter [facility] Summary Purpose Family History Unknown Family Member Name Dates Details Non-Contributory Family Hist ory Status:Active Advance Directives No Advanced Directives Records Found Instructions Name Dates Details How to access health informa tion online Indication:Pneumonia Start:30-Mar-2015 Instruction Type:Patient Education How to access health informa tion online - Detail Indication:Pneumonia Start:30-Mar-2015 Instruction Type:Patient Education Patient Instructions Indication:Pneumonia Start:30-Mar-2015 Instruction Type:Provider Instructions for Treatment How to access health informa tion online Indication:Flu-like symptoms Start:25-May-2014 Instruction Type:Patient Education How to access health informa tion online - Detail Indication:Fever and chills Start:25-May-2014 Instruction Type:Patient Education Patient Instructions Indication:Fever and chills Start:25-May-2014 Instruction Type:Provider Instructions for Treatment Patient Instructions Indication:Annual physical exam Start:31-Jan-2014 Instruction Type:Provider Instructions for Treatment How to access health informa tion online - Detail Indication:Annual physical exam Start:31-Jan-2014 Instruction Type:Patient Education How to access health informa tion online Indication:Annual physical exam Start:31-Jan-2014 Instruction Type:Patient Education Patient Instructions Indication:Epicondylitis elbow, medial Start:06-Nov-2012 Instruction Type:Provider Instructions for Treatment Patient Instructions Indication:Abnormal lung sounds Start:01-May-2012 Instruction Type:Provider Instructions for Treatment Patient Instructions Indication:Pharyngitis, acute Start:18-Mar-2012 Instruction Type:Provider Instructions for Treatment Additional Source Comments INFORMATION SOURCE (unrecogn ized section and content) Source Comments (unrecognize d section and content) In the event this informatio n is protected by the Federal Confidentiality of Alcohol and Drug Abuse Patient Records regulations: The Federal rules restrict any use of the information to criminally investigate or prosecute any alcohol or drug abuse patient.[facility] Reason for Visit (unrecogniz ed section and content) FOR RECORDS PERTAINING TO PATIENTS WHO ARE OR HAVE BEEN ENROLLED IN A CHEMICAL DEPENDENCY/SUBSTANCEABUSE PROGRAM, SOME INFORMATION MAY BE OMITTED. This clinical summary was aggregated from multiple sources. Caution should be exercised in using it in the provision of clinical care. This summary normalizes information from multiple sources, and as a consequence, information in this document may materially change the coding, format and clinical context of patient data. In addition, data may be omitted in some cases. CLINICAL DECISIONS SHOULD BE BASED ON THE PRIMARY CLINICAL RECORDS. [facility]. provides no warranty or guarantee of the accuracy or completeness of information in this document.
== END | disposition home or self-care (01) ==
LOC: OPBI 14:45
PROVIDERS: PCP Internal Medicine; Referring Provider Internal Medicine; Visit Provider Internal Medicine
DX: Z12.31 Encounter for screening mammogram for malignant neoplasm of breast (principal)
CPT/HCPCS: 77063; 77067

== ENCOUNTER → 2023-09-23 | Outpatient (CLI) | payer OTHER, SELFPAY | END | disposition home or self-care (01) | LOC: PSN 13:45 | PROVIDERS: PCP Internal Medicine; Referring Provider Internal Medicine; Visit Provider Internal Medicine | DX: R00.2 Palpitations (principal) | CPT/HCPCS: 93225; 93226 ==

== ENCOUNTER → 2024-01-22 | Outpatient (CLI) | payer OTHER, SELFPAY ==
[2024-01-22 11:51] LABS: T4 Free Direct 1.11 ng/dL (0.76-1.46); Thyroid Stim Hormone (TSH) 0.992 uIU/mL (0.358-3.740)
== END | disposition home or self-care (01) ==
LOC: MTLAB 08:01
PROVIDERS: PCP Internal Medicine; Referring Provider Internal Medicine Endocrinology, Diabetes & Metabolism; Visit Provider Internal Medicine Endocrinology, Diabetes & Metabolism
DX: E89.0 Postprocedural hypothyroidism (principal); M81.0 Age-related osteoporosis without current pathological fracture
CPT/HCPCS: 36415; 84439; 84443

== ENCOUNTER → 2024-03-23 | Outpatient (CLI) | payer OTHER, SELFPAY ==
--- NOTE | 2024-03-23 16:46 | CT_ITS ---
STUDY: LOW DOSE CT LUNG CANCER SCREENING REASON FOR EXAM: Female, 58 years old. Smoker, quit 07/08/18. The patient smoked 1 pack per day for 25 years. RADIATION DOSAGE (If Supplied By Facility): CTDIvol = ( 2.01 ) mGy, DLP = ( 67.71 ) mGycm TECHNIQUE: No contrast was administered. Low dose technique was utilized (average mAS-38 and kVp 120). 1.25 mm axial source images with a slice interval of 1.25-mm were reconstructed in lung windows. 2.5 mm axial source images with a slice interval of 2.5-mm were reconstructed in lung windows. 5.0 mm axial source images with a slice interval of 5.0-mm were reconstructed in soft tissue windows. COMPARISON: Comparison is made with prior study dated March 21, 2023. NODULES: No suspicious nodules are seen. Emphysema: Emphysematous changes. Stable scarring at the lung apices more prominent on the right side. Focal scarring in the anteromedial aspect of the right middle lobe. Endobronchial lesion: None Aorta: Unremarkable CORONARY ARTERIES: Coronary artery calcification is not seen. Heart: Unremarkable Pulmonary artery: Unremarkable Mediastinal nodes: Small mediastinal lymph nodes. Other chest and abdominal findings: The patient is status post splenectomy. CT/Low Dose CT Lung Screening IMPRESSION: Lung-RADS category 2 - Continue annual screening with LDCT in 12 months. IMPORTANT NOTES FOR USE: ACR Lung-RADS Version 1.1 Assessment Categories Release Date: 2018 Category: Coded 0-4 bases on nodule(s) with highest degree of suspicion. Negative screen is defined as categories 1 and 2; a positive screen is defined as categories 3 and 4. Category 3 and 4A nodules that are unchanged on interval CT should be coded as category 2, and individuals returned to screening in 12 months. Category 4X: Category 3 or 4 nodules with additional imaging findings that increase the suspicion of lung cancer, such as spiculation, GGN that doubles in size in 1 year, enlarged lymph notes, etc. Category Modifiers: S (significant finding unrelated to lung cancer) Electronically Signed: Lemuel Dunne MD at 10:01 EST ,
== END | disposition home or self-care (01) ==
PROVIDERS: PCP Internal Medicine; Referring Provider Nurse Practitioner Acute Care; Visit Provider Nurse Practitioner Acute Care
DX: Z12.2 Encounter for screening for malignant neoplasm of respiratory organs (principal); Z87.891 Personal history of nicotine dependence
CPT/HCPCS: 71271

== ENCOUNTER → 2025-01-20 | Outpatient (CLI) | payer OTHER, SELFPAY ==
--- NOTE | 2025-01-20 15:58 | BD_ITS ---
PROCEDURE: DEXA BONE DENSITY STUDY 01/20/2025 REASON FOR EXAM: F, age 59 y/o . Patient is postmenopausal.. TECHNIQUE: Procedure Code: BDDBD Modality: DX Procedure: DEXA BONE DENSITY STUDY COMPARISON: None FINDINGS: BMD and T-SCORES Lumbar spine: 0.832 g/cm2, T-score -2.0 Levels: L1 through L4 Left femoral neck: 0.513 g/cm2, T-score -3.0 Left total hip: 0.694 g/cm2, T-score -2.0 Right femoral neck: 0.584 g/cm2, T-score -2.4 Right total hip: 0.721 g/cm2, T-score -1.8 The World Health Organization has defined the following categories based on bone density: Normal bone density: T-score equal to or greater than -1.0 Osteopenia: T-score between -1.0 and -2.5 Osteoporosis: T-score equal to or less than -2.5 FRAX (or Comparable) Fracture Risk Assessment: 10 Year Probability of Fracture: Major Osteoporotic Fracture: 23% Hip Fracture: 6.6% (Note: FRAX is not to be reported in setting of normal range bone density, osteoporosis on DEXA, known history of osteoporosis, prior osteoporotic hip or vertebral fracture, or for any patient undergoing pharmacological treatment for bone loss.) The National Osteoporosis Foundation (NOF) recommends pharmacological treatment for patients with a FRAX 10-year risk of 3% or higher for a hip fracture, or 20% or higher for a major osteoporotic fracture, to prevent osteoporosis and reduce fracture risk. The patient does meet the pharmacological treatment recommendations for prevention of osteoporosis. BD/Dexa Bone Density Study IMPRESSION: OSTEOPOROSIS. Recommend follow-up as clinically warranted. Reading Location: [id number]
--- NOTE | 2025-01-20 16:30 | BI_ITS ---
EXAM: SCRN MAMM (CAD)W/SON BILAT DATE: 01/20/2025 CLINICAL HISTORY: F, Age 59 y/o , SCRN MAMM (CAD)W/SON BILAT TECHNIQUE: Procedure Code: [id number] Modality: MG Procedure: SCRN MAMM (CAD)W/SON BILAT COMPARISON: Prior exam(s) dated 04/23/2023, 04/19/2022. FINDINGS: TISSUE DENSITY: There are scattered areas of fibroglandular density. Bilateral Breast Mammographic Findings: No significant masses, calcifications or other abnormalities are identified. BI/SCRN MAMM (CAD)W/SON BILAT IMPRESSION: There is no mammographic evidence of malignancy. OVERALL FINAL ASSESSMENT BI-RADS 1: NEGATIVE. RECOMMENDATION: Routine annual follow-up in 1 Year Additional Recommendation none A letter with findings and recommendations will be mailed to the patient. Reading Location: [id number]
== END | disposition home or self-care (01) ==
LOC: OPBD 15:56
PROVIDERS: PCP Internal Medicine; Referring Provider Internal Medicine; Visit Provider Internal Medicine
DX: Z12.31 Encounter for screening mammogram for malignant neoplasm of breast (principal); Z78.0 Asymptomatic menopausal state
CPT/HCPCS: 77063; 77067; 77080

== ENCOUNTER → 2025-01-21 | Outpatient (CLI) | payer OTHER, SELFPAY ==
--- NOTE | 2025-01-21 10:51 | RAD_ITS ---
PROCEDURE: SHOULDER MIN 2 VIEWS 01/21/2025 REASON FOR EXAM: SHOULDER PAIN TECHNIQUE: Procedure Code: RADSH Modality: DX Procedure: SHOULDER MIN 2 VIEWS Laterality: Right COMPARISON: None FINDINGS: Bones: No acute fracture or dislocation. Joints: Normal alignment of the acromioclavicular and glenohumeral joints. Soft tissues: Soft tissues are unremarkable. Other: RAD/Shoulder min 2 Views IMPRESSION: No acute osseous findings. Reading Location: [place] [address]
== END | disposition home or self-care (01) ==
LOC: MTRAD 10:51
PROVIDERS: PCP Internal Medicine; Referring Provider Physician Assistant Surgical; Visit Provider Physician Assistant Surgical
DX: M25.511 Pain in right shoulder (principal)
CPT/HCPCS: 73030

== ENCOUNTER → 2025-02-22 | Outpatient (CLI) | payer OTHER, SELFPAY ==
--- NOTE | 2025-02-22 16:10 | MRI_ITS ---
PROCEDURE: MRI/Upper Ext Joint Only(Routine)
== END | disposition home or self-care (01) ==
LOC: MRI 16:07
PROVIDERS: PCP Internal Medicine; Referring Provider Internal Medicine; Visit Provider Internal Medicine
DX: M75.00 Adhesive capsulitis of unspecified shoulder (principal); M75.91 Shoulder lesion, unspecified, right shoulder
CPT/HCPCS: 73221

== ENCOUNTER → 2025-03-23 | Outpatient (CLI) | payer OTHER, SELFPAY ==
--- OUTSIDE RECORDS SUMMARY | 2025-03-23 18:26 | XMS RPT_ITS | CCD ---
Author Organization [facility] Care Team Providers Care Senior Service Technician Name Role Phone SHAUN SALDAÑA MD Admitting Unavailable SHAUN SALDAÑA MD Attending Unavailable SHAUN SALDAÑA MD Primary Care Unavailable SHAUN SALDAÑA MD Consulting Unavailable PROVIDER, UNKNOWN Consulting Unavailable PROVIDER, UNKNOWN Consulting Unavailable Ya Garibay Unavailable Misael Kincaid Unavailable Taina Arnold Unavailable Unavailable Unavailable Unavailable Ya Garibay Primary Care Provider JOSE MANUEL Duran Attending Provider Unavailab Dr. Teri Agustin Primary Care Provider [phone] Dr. Teri Muller Referring Provider [phone] JOSE MANUEL Duran Attending Provider Unavailab Dr. Teri Agustin Primary Care Provider [phone] Dr. Teri Muller Referring Provider [phone] Dr. Randal Kaur Attending Provider Dr. Jefferson Shi Attending Provider JOSE MANUEL Valente Attending Provider Dr. Teri Muller Primary Care Provider [phone] Dr. Teri Muller Referring Provider [phone] JOSE MANUEL Valente Attending Provider Dr. Teri Muller Attending Provider [phone] Dr. Teri Muller Primary Care Provider [phone] Dr. Teri Muller Referring Provider [phone] JOSE MANUEL Valente Attending Provider RAYMOND Glover Attending Provider Dr. Teri Muller Primary Care Provider [phone] Dr. Teri Muller Attending Provider [phone] Dr. Teri Muller Referring Provider [phone] Lani RAUSCH, Dr. Pandya Primary Care Physician Aleshia DE LA ROSA, Dr. Trejo Attending Physician Assessment, Health Risk Attending Physician Unav ailable Assessment, Health Risk Referring Provider Unava ilable Lani RAUSCH, Dr. Pandya Attending Physician [phone] Lani RAUSCH, Dr. Pandya Referring Provider Levi Valente Attending Physician Levi Valente Referring Provider Levi Valente Attending Unavailable Lani, Ya Referring Unavailable Lani, Ya Primary Care Unavailable Lani, Ya Primary Care Unavailable Assessment, Health Risk Attending Unavaila ble Assessment, Health Risk Referring Unavaila ble Johnson INTERVENTIONAL NURSE, Felicita Attending Unavailable Johnson INTERVENTIONAL NURSE, Felicita Referring Unavailable Lani, Ya Primary Care Unavailable Johnson INTERVENTIONAL NURSE, Felicita Attending Unavailable Lani, Ya Referring Unavailable Lani, Ya Primary Care Unavailable Lani, Ya Attending Unavailable Lani, Ya Referring Unavailable Lani, Ya Primary Care Unavailable Lani, Ya Primary Care Unavailable Johnson INTERVENTIONAL NURSE, Felicita Attending Unavailable Johnson INTERVENTIONAL NURSE, Felicita Referring Unavailable Lani, Ya Attending Unavailable Lani, Ya Referring Unavailable Lani, Ya Primary Care Unavailable Levi Valente Referring Unavailable Lani, Ya Primary Care Unavailable Levi Valente Attending Unavailable Allergies Allergy Classification Reported Allergen(s) Allergy Type Date of Onset Reaction(s) Facility (1 source) buPROPion; Translations: [Wellbutrin *ANTIDEPRESSANT S*] Drug Allergy [facility] Work Phone: Comment on above: edema (1 source) Allergy to Wellbutrin (Renamed from Wellbutrin) Allergy to substance (finding) [facility] Work Phone: Comment on above: Hives Medications Current Medications Medication Drug Class(es) Dates Sig (Normalized) Sig (Original) [id number] actuat albuterol 0.09 mg/actuat metered dose inhaler (12 sources) beta2-Adrenergic Agonist Start: 04-28-2023 End: 05-26-2024 Start: 01-02-2018 End: 12-24-2019 Albuterol Sulfate 90 mcg/act uation HFA aerosol inhaler Discontinued 2 NMA INHALATION EVERY 6 HOURS as needed for shortness of breath or wheezing 08 06January 02, 2018 12:00am December 24, 2019 2:39pm Start: 01-02-2018 End: 12-24-2019 take 1 puff(s) by inhalation every six hours Albuterol Sulfate Discontinued 2 PUFF INHALATION EVERY 6 HOURS January 01, 2018 11:00pm December 24, 2019 1:39pm Start: 05-01-2012 End: 11-06-2012 PROVENTIL HFA, 108 (90 Base) MCG/ACT (Inhalation Aerosol Solution) 2 (two) Aerosol Soln q 6 hr prn for 0 days Quantity: 1 {Aerosol_Soln} Refills: 0 Ordered: 06-Nov-2012 Ginny Almendarez CMA Start : 01-May-2012 End : 06-Nov-2012 Inactive alendronic acid 70 mg oral tablet (4 sources) Bisphosphonate Start: 05-14-2023 take 1 tablet by trini th every week Start: 11-06-2022 End: 04-22-2023 take 1 tablet by mouth every week Alendronate (Fosamax) 70 mg tablet Discontinued 70 mg PO EVERY WEEK 14 November 06, 2022 12:00am April 22, 2023 4:47pm Multivitamin preparation (7 sources) Start: 07-30-2017 take 1 tablet by mouth once daily Multivitamin Active 1 TABLET PO daily July 29, 2017 11:00pm Start: 07-30-2017 take 1 tablet by trini th once daily Multivitamin Active 1 TABLET PO daily July 30, 2017 12:00am Multivitamin tablet (1 source) Start: 07-30-2017 Tiotropium-Olodaterol (20 sources) Anticholinergic, beta2-Adrenergic Agonist Start: 05-26-2024 Start: 02-27-2024 End: 05-26-2024 Tiotropium-Olodaterol (Stiol to Respimat) 2.5-2.5 mcg/actuation mist Discontinued 2 NMA INHALATION DAILY 07 24February 27, 2024 12:55pm May 26, 2024 4:45pm Stage 2 moderate COPD by GOLD classification Chronic obstructive pulmonary disease, unspecified Start: 04-28-2023 End: 02-27-2024 Tiotropium-Olodaterol (Stiol to Respimat) 2.5-2.5 mcg/actuation mist Discontinued 2 NMA INHALATION DAILY 07 24April 28, 2023 3:41pm February 27, 2024 12:55pm Stage 2 moderate COPD by GOLD classification Chronic obstructive pulmonary disease, unspecified Start: 07-12-2021 End: 04-28-2023 Tiotropium-Olodaterol (Stiol to Respimat) 2.5-2.5 mcg/actuation mist Discontinued 2 NMA INHALATION DAILY 07 24July 12, 2021 1:04pm April 28, 2023 3:41pm Stage 2 moderate COPD by GOLD classification Chronic obstructive pulmonary disease, unspecified Start: 07-12-2021 Tiotropium-Olo daterol (Stiolto Respimat) 2.5-2.5 mcg/actuation mist Active 2 PUFF INHALATION DAILY July 12, 2021 12:04pm Start: 07-12-2021 Tiotropium-Olo daterol (Stiolto Respimat) 2.5-2.5 mcg/actuation mist Active 2 PUFF INHALATION DAILY July 12, 2021 1:04pm Start: 01-11-2021 End: 07-12-2021 Tiotropium-Olodaterol (Stiol to Respimat) 2.5-2.5 mcg/actuation mist Discontinued 2 NMA INHALATION DAILY 07 24January 11, 2021 2:37pm July 12, 2021 1:05pm Stage 2 moderate COPD by GOLD classification Chronic obstructive pulmonary disease, unspecified Start: 01-11-2021 End: 07-12-2021 Tiotropium-Olodaterol (Stiol to Respimat) 2.5-2.5 mcg/actuation mist Discontinued 2 PUFF INHALATION DAILY January 11, 2021 1:37pm July 12, 2021 12:05pm Start: 01-11-2021 End: 07-12-2021 Tiotropium-Olodaterol (Stiol to Respimat) 2.5-2.5 mcg/actuation mist Discontinued 2 PUFF INHALATION DAILY January 11, 2021 2:37pm July 12, 2021 1:05pm Start: 08-31-2020 End: 01-11-2021 Tiotropium-Olodaterol (Stiol to Respimat) 2.5-2.5 mcg/actuation mist Discontinued 2 NMA INHALATION DAILY 07 24August 31, 2020 12:00am January 11, 2021 2:37pm Stage 2 moderate COPD by GOLD classification Chronic obstructive pulmonary disease, unspecified Start: 08-31-2020 End: 01-11-2021 Tiotropium-Olodaterol (Stiol to Respimat) 2.5-2.5 mcg/actuation mist Discontinued 2 PUFF INHALATION DAILY August 30, 2020 11:00pm January 11, 2021 1:37pm Start: 12-24-2019 End: 08-31-2020 Tiotropium-Olodaterol (Stiol to Respimat) 2.5-2.5 mcg/actuation mist Discontinued 2 NMA INHALATION DAILY as needed December 24, 2019 2:40pm August 31, 2020 5:45am Start: 12-24-2019 End: 08-31-2020 Tiotropium-Olodaterol (Stiol to Respimat) 2.5-2.5 mcg/actuation mist Discontinued 2 PUFF INHALATION DAILY December 24, 2019 1:40pm August 31, 2020 4:45am Start: 12-24-2019 End: 08-31-2020 Tiotropium-Olodaterol (Stiol to Respimat) 2.5-2.5 mcg/actuation mist Discontinued 2 PUFF INHALATION DAILY December 24, 2019 2:40pm August 31, 2020 5:45am Start: 07-24-2018 End: 12-24-2019 Tiotropium-Olodaterol (Stiol to Respimat) 2.5-2.5 mcg/actuation mist Discontinued 2 NMA INHALATION DAILY 4 July 24, 2018 12:00am December 24, 2019 2:40pm Start: 07-24-2018 End: 12-24-2019 Tiotropium-Olodaterol (Stiol to Respimat) 2.5-2.5 mcg/actuation mist Discontinued 2 PUFF INHALATION DAILY July 23, 2018 11:00pm December 24, 2019 1:40pm Completed/Discontinued Medications Medication Drug Class(es) Dates Sig (Normalized) Sig (Original) amoxicillin 500 mg oral capsule (6 sources) Penicillin-class Antibacterial Start: 07-31-2022 End: 08-10-2022 take 1 capsule by mouth twice daily Amoxicillin 500 mg capsule Discontinued 500 mg PO TWICE A DAY 20 July 31, 2022 12:00am August 09, 2022 12:00am August 10, 2022 12:12am End: 04-06-2010 take 4 capsules by mouth every hour AMOXIL, 500MG (Oral Capsule) 4 caps 1 hr prior to dental procedure for 0 days Refills: 0 Ordered: 03-Oct-2009 Taina Arnold RN End : 06-Apr-2010 Discontinued Comments: This order discontinued per [facility]. Comment on above: This order discontin ued per [facility]. amoxicillin 875 mg / clavulanate 125 mg oral tablet (20 sources) Penicillin-class Antibacterial Start: 06-11-2022 End: 06-11-2022 Amoxicillin-Pot Clavulanate 875-125 mg tablet Discontinued 1 {tbl} PO Q12H 20 June 11, 2022 1:00am June 20, 2022 1:00am June 11, 2022 5:44pm Acute sinusitis, unspecified Start: 06-11-2022 End: 06-11-2022 take 1 tablet by mouth every twelve hours Amoxicillin-Pot Clavulanate Discontinued 1 TABLET PO Q12H 07 02June 11, 2022 12:00am June 11, 2022 4:44pm Start: 09-12-2021 End: 09-18-2021 Amoxicillin-Pot Clavulanate 875-125 mg tablet Discontinued 1 {tbl} PO TWICE A DAY September 12, 2021 12:00am September 18, 2021 7:35am Start: 09-12-2021 End: 09-18-2021 take 1 tablet by mouth twice daily Amoxicillin-Pot Clavulanate Discontinued 1 TABLET PO TWICE A DAY September 11, 2021 11:00pm September 18, 2021 6:35am Start: 06-27-2020 End: 07-07-2020 Amoxicillin-Pot Clavulanate (Augmentin) 875-125 mg tablet Discontinued 1 {tbl} PO Q12H 20 10 0 June 27, 2020 1:00am July 06, 2020 12:00am July 07, 2020 12:03am Acute sinusitis, unspecified Start: 03-08-2019 End: 03-18-2019 Amoxicillin-Pot Clavulanate 875-125 mg tablet Discontinued 1 {tbl} PO Q12H 20 10 0 March 08, 2019 1:00am March 17, 2019 1:00am March 18, 2019 1:07am Start: 03-08-2019 End: 03-18-2019 take 1 tablet by mouth every twelve hours Amoxicillin-Pot Clavulanate Discontinued 1 TABLET PO Q12H 20 March 08, 2019 12:00am March 18, 2019 12:07am Start: 03-23-2012 End: 04-06-2012 take 1 tablet by mouth twice daily AUGMENTIN, 875-125MG (Oral Tablet) 1 Tablet Twice daily for 14 days Quantity: 28 {Tablet} Refills: 0 Ordered: 23-Mar-2012 Santiago CHAIREZLala Start : 23-Mar-2012 End : 06-Apr-2012 Inactive ascorbic acid 60 mg / folic acid 0.3 mg / niacin 13.5 mg / riboflavin 1.2 mg / sodium fluoride 0.55 mg / thiamine 1.05 mg / vitamin a 2500 unt / vitamin b 12 0.0045 mg / vitamin b6 1.05 mg / vitamin d 400 unt / vitamin e 15 unt chewable tablet (1 source) Nicotinic Acid, Vitamin A, Vitamin B12, Vitamin C take 1 tablet by mouth once daily, then take 1 tablet by mouth MULTI VIT/FL, 0.25MG (PO Chew Tab) 1 QD (0.25 MG) Active azithromycin 500 mg oral tablet (2 sources) Macrolide Antimicrobial Start: 5 End: 6 take 1 tablet by mouth once daily ZITHROMAX, 500MG (Oral Tablet) 1 (one) Tablet qd for 1 days Refills: 0 Ordered: 12-May-2015 Taina Arnold RN Start : 30-Mar-2015 End : 12-May-2015 Inactive Start: 02-02-2008 End: 08-25-2008 take 1 tablet by mouth every other day, then take 1 tablet by mouth, then take 1 tablet by mouth once daily ZITHROMAX Z-JOCELYNE, 250MG (Oral Tablet) 1 Tablet take 2 day one then one daily for 0 days Quantity: 1 {Applicator(s)} Refills: 0 Ordered: 02-Feb-2008 Florencia Stallings Start : 02-Feb-2008 End : 25-Aug-2008 Inactive benzonatate 100 mg oral capsule (2 sources) Non-narcotic Antitussive Start: 04-04-2023 End: 04-28-2023 take 2 capsules by mouth three times daily as needed for cough Benzonatate 100 mg capsule Discontinued 200 mg PO THREE TIMES A DAY as needed for cough 30 0 April 04, 2023 1:00am April 28, 2023 3:26pm Start: 10-03-2009 take 1 capsule by [facility] three times daily as needed TESSALON PERLES, 100MG (Oral Capsule) 1 (one) Capsule tid prn for 0 days Quantity: 30 {Capsule} Refills: 0 Ordered: 22-Jan-2010 Taina Arnold RN Start : 03-Oct-2009 Inactive busPIRone hydrochloride 15 mg oral tablet (1 source) Start: 04-06-2010 End: 06-22-2010 take 1 tablet by mouth twice daily BUSPIRONE HCL, 15MG (Oral Tablet) 1 Tablet bid for 0 days Quantity: 60 {Tablet} Refills: 2 Ordered: 22-Jun-2010 Taina Arnold RN Start : 06-Apr-2010 End : 22-Jun-2010 Inactive cefuroxime 250 mg oral tablet (1 source) Cephalosporin Antibacterial Start: 03-30-2015 End: 05-12-2015 take 1 tablet by mouth twice daily CEFTIN, 250MG (Oral Tablet) 1 (one) Tablet bid for 7 days Refills: 0 Ordered: 12-May-2015 Taina Arnold RN Start : 30-Mar-2015 End : 12-May-2015 Inactive cephalexin 500 mg oral capsule (5 sources) Cephalosporin Antibacterial Start: 06-11-2022 End: 06-21-2022 take 1 capsule by mouth every twelve hours Cephalexin 500 mg capsule Discontinued 500 mg PO Q12H 20 10 0 June 11, 2022 1:00am June 20, 2022 1:00am June 21, 2022 1:04am ciprofloxacin 500 mg oral tablet (1 source) Quinolone Antimicrobial Start: 06-18-2006 End: 03-10-2007 take 1 tablet by mouth twice daily CIPRO, 500MG (Oral Tablet) 1 (one) Tablet Twice daily for 0 days Quantity: 10 {Tablet} Refills: 0 Ordered: 18-Jun-2006 Freya Dias LPN Start : 18-Jun-2006 End : 10-Mar-2007 Discontinued citalopram 20 mg oral tablet (2 sources) Serotonin Reuptake Inhibitor Start: 06-29-2013 End: 05-25-2014 take 1 tablet by mouth once daily CITALOPRAM HYDROBROMIDE, 20MG (Oral Tablet) 1 (one) Tablet Tablet daily for 0 days Quantity: 30 {Tablet} Refills: 4 Ordered: 25-May-2014 Ginny Almendarez CMA Start : 29-Jun-2013 End : 25-May-2014 Inactive Start: 03-18-2012 End: 03-18-2012 take 1 tablet by mouth once daily CELEXA, 40MG (Oral Tablet) 1 Tablet daily for 0 days Quantity: 30 {Tablet} Refills: 3 Ordered: 18-Mar-2012 Zayra Gan MD Start : 18-Mar-2012 End : 18-Mar-2012 Discontinued 24 hr clarithromycin 500 mg extended release oral tablet (1 source) Macrolide Antimicrobial Start: 10-03-2009 End: 10-13-2009 take 2 tablets by mouth once daily BIAXIN XL PAC, 500MG (Oral Tablet Extended Release 24 Hour) 2 (two) Tablet ER 24HR daily for 10 days Quantity: 20 {Tablet_ER_24HR} Refills: 0 Ordered: 22-Jan-2010 Lala Henderson CNP Start : 03-Oct-2009 End : 13-Oct-2009 Inactive codeine phosphate 2 mg/ml / guaiFENesin 20 mg/ml oral solution (1 source) Opioid Agonist Start: 10-03-2009 GUAIATUSSIN AC, 100-10MG/5ML (Oral Syrup) 1 Syrup 1 tsp q hs for 0 days Quantity: 6 {Ounce(s)} Refills: 0 Ordered: 22-Jan-2010 Taina Arnold RN Start : 03-Oct-2009 Inactive DEPLIN, 15MG (Oral Tablet) (1 source) Start: 03-18-2012 End: 03-18-2012 take 1 tablet by mouth once daily DEPLIN, 15MG (Oral Tablet) 1 Tablet qd for 0 days Quantity: 30 {Tablet} Refills: 4 Ordered: 18-Mar-2012 Zayra Gan MD Start : 18-Mar-2012 End : 18-Mar-2012 Discontinued DULoxetine 20 mg delayed release oral capsule (9 sources) Serotonin and Norepinephrine Reuptake Inhibitor Start: 07-30-2017 End: 01-02-2018 take 1 capsule by mouth twice daily Duloxetine (Cymbalta) 20 mg capsule,delayed release(DR/EC) Discontinued 20 mg PO TWICE A DAY July 30, 2017 12:00am January 02, 2018 10:40am Start: 06-29-2013 End: 01-31-2014 take 1 capsule by mouth once daily, then take 2 capsules by mouth once daily CYMBALTA, 30MG (Oral Capsule Delayed Release Particles) [address] Part qd for 0 days Quantity: 30 {Capsule} Refills: 4 Ordered: 31-Jan-2014 Taina Arnold RN Start : 29-Jun-2013 End : 31-Jan-2014 Inactive Comments: ok for generic Start 30mg x1 weeks can increase 60mg daily if needed Comment on above: ok for generic Start 30mg x1 weeks can increase 60mg daily if needed 12 hr fexofenadine hydrochloride 60 mg / pseudoephedrine hydrochloride 120 mg extended release oral tablet (1 source) alpha-Adrenergic Agonist, Histamine-1 Receptor Antagonist Start: 03-21-20 End: 06-23-19 11 take 60-120 mg by mouth every twelve hours STEPHANY-D 12 HOUR, 60-120MG (Oral Tablet Extended Release 12 Hour) 1 Tablet ER 12HR q12hr for 0 days Quantity: 15 {Tablet_ER_12HR} Refills: 0 Ordered: 22-Jun-2010 Taina Arnold RN Start : 21-Mar-2010 End : 22-Jun-2010 Inactive fluticasone propionate 0.05 mg/actuat metered dose nasal spray (2 sources) Corticosteroid Start: 03-21-20 10 End: 06-23-19 11 FLONASE, 50MCG/ACT (Nasal Suspension) 2 (two) Puff(s) daily for 0 days Quantity: 1 {Suspension} Refills: 0 Ordered: 22-Jun-2010 Taina Arnold RN Start : 21-Mar-2010 End : 22-Jun-2010 Inactive Start: 08-25-2008 End: 06-22-2010 VERAMYST, 27.5MCG/SPRAY (Kevon al Suspension) 2 (two) Suspension Daily for 0 days Quantity: 1 {Suspension} Refills: 0 Ordered: 22-Jun-2010 Taina Arnold RN Start : 25-Aug-2008 End : 22-Jun-2010 Inactive 120 actuat formoterol fumarate 0.0048 mg/actuat / glycopyrrolate 0.009 mg/actuat metered dose inhaler (16 sources) beta2-Adrenergic Agonist Start: 07-30-2017 End: 07-24-2018 Glycopyrrolate-Formoterol (Bevespi Aerosphere) 9-4.8 mcg HFA aerosol inhaler Discontinued 2 NMA INHALATION TWICE A DAY 10.7 11 January 02, 2018 10:49am July 24, 2018 2:48pm Chronic obstructive pulmonary disease, unspecified Start: 07-30-2017 End: 07-24-2018 Glycopyrrolate-Formoterol (B evespi Aerosphere) 9-4.8 mcg HFA aerosol inhaler Discontinued 2 PUFF INHALATION TWICE A DAY 10.7 January 02, 2018 9:49am July 24, 2018 1:48pm 12 hr guaiFENesin 1200 mg extended release oral tablet (2 sources) Start: 04-04-2023 End: 04-28-2023 take 1 tablet by mouth every twelve hours Guaifenesin 1,200 mg tablet extended release 12hr Discontinued 1200 mg PO Q12H 20 April 04, 2023 1:00am April 28, 2023 3:26pm Start: 03-18-2012 End: 11-06-2012 MUCINEX, 600MG (Oral Tablet Extended Release 12 Hour) 1 (one) Tablet ER 12HR Twice daily for 0 days Refills: 0 Ordered: 06-Nov-2012 Ginny Almendarez CMA Start : 18-Mar-2012 End : 06-Nov-2012 Inactive levothyroxine sodium 0.075 mg oral tablet (20 sources) l-Thyroxine Start: 08-07-2017 End: 08-07-2017 take 1 tablet by mouth every week Levothyroxine 88 mcg tablet Discontinued 0 PO .COMPLEX 0 August 07, 2017 3:49pm August 07, 2017 4:05pm 1 tab 6 days q week PO Start: 07-30-2017 End: 02-29-2020 take 1 tablet by mouth once daily Levothyroxine 88 mcg tablet Discontinued 0 PO .COMPLEX 90 3 August 07, 2017 4:05pm February 29, 2020 3:41pm Hypothyroidism, unspecified Take one tablet daily Start: 08-12-2012 End: 01-22-2024 take 1 tablet by mouth once daily Levothyroxine 75 mcg tablet Discontinued 75 ug PO DAILY 90 3 March 01, 2021 6:01pm February 28, 2022 4:47pm meloxicam 15 mg oral tablet (8 sources) Nonsteroidal Anti-inflammatory Drug Start: 08-11-2020 End: 04-23-2022 take 1 tablet by mouth once daily as needed for pain Meloxicam 15 mg tablet Discontinued 15 mg PO DAILY as needed for pain 90 0 August 11, 2020 12:00am April 23, 2022 5:20pm methIMAzole 5 mg oral tablet (1 source) Thyroid Hormone Synthesis Inhibitor take 1 tablet by mouth twice daily METHIMAZOLE, 5MG (Oral Tablet) 1 bid (5 MG) Inactive methylPREDNISolone 4 mg oral tablet (6 sources) Corticosteroid Start: 04-23-2022 End: 04-29-2022 take 1 tablet by mouth once Methylprednisolone (Medrol (Jocelyne)) 4 mg tablets,dose pack Discontinued 4 mg PO per package directions 21 6 0 April 23, 2022 1:00am April 28, 2022 1:00am April 29, 2022 1:05am 24 hr metoprolol succinate 25 mg extended release oral tablet (1 source) beta-Adrenergic Christelle take 1 tablet by mouth every twenty-four hours METOPROLOL SUCCINATE, 25MG (Oral Tablet Extended Release 24 Hour) 1 qd (25 MG) Inactive naproxen 500 mg oral tablet (1 source) Nonsteroidal Anti-inflammatory Drug Start: 11-06-2012 End: 01-31-2014 take 1 tablet by mouth twice daily NAPROSYN, 500MG (Oral Tablet) 1 Tablet Tablet bid for 0 days Quantity: 30 {Tablet} Refills: 1 Ordered: 31-Jan-2014 Taina Arnold RN Start : 06-Nov-2012 End : 31-Jan-2014 Inactive oseltamivir 75 mg oral capsule (1 source) Neuraminidase Inhibitor Start: 05-25-2014 End: 05-30-2014 take 1 capsule by mouth twice daily TAMIFLU, 75MG (Oral Capsule) 1 (one) Capsule bid for 5 days Quantity: 10 {Capsule} Refills: 0 Ordered: 25-May-2014 Lala Henderson CNP Start : 25-May-2014 End : 30-May-2014 Inactive predniSONE 20 mg oral tablet (8 sources) Start: 09-12-2021 End: 09-18-2021 take 3 tablets by mouth once daily at mealtime Prednisone 20 mg tablet Discontinued 60 mg PO daily September 12, 2021 12:00am September 18, 2021 7:36am administer with food or milk Start: 09-12-2021 End: 09-18-2021 take 60 mg by mouth once daily at mealtime Prednisone Discontinued 60 MG PO daily September 11, 2021 11:00pm September 18, 2021 6:36am administer with food or milk promethazine hydrochloride 12.5 mg oral tablet (1 source) Phenothiazine Start: 07-30-2006 End: 03-10-2007 take 1-2 tablets by mouth every eight hours as needed PHENERGAN, 12.5MG (Oral Tablet) 1-2 Tablet q8 hours prn for 0 days Quantity: 20 {Tablet} Refills: 0 Ordered: 30-Jul-2006 Freya Dias LPN Start : 30-Jul-2006 End : 10-Mar-2007 Discontinued sertraline 50 mg oral tablet (2 sources) Serotonin Reuptake Inhibitor Start: 04-16-2010 End: 06-22-2010 take 1 tablet by mouth once daily ZOLOFT, 25MG (Oral Tablet) 1 Tablet qd for 30 days Quantity: 30 {Tablet} Refills: 3 Ordered: 22-Jun-2010 Taina Arnold RN Start : 16-Apr-2010 End : 22-Jun-2010 Inactive Start: 04-16-2010 End: 06-22-2010 take 1 tablet by mouth once daily ZOLOFT, 50MG (Oral Tablet) 1 Tablet qd for 30 days Quantity: 30 {Tablet} Refills: 3 Ordered: 22-Jun-2010 Taina Arnold RN Start : 16-Apr-2010 End : 22-Jun-2010 Inactive Comments: refills at qty 30 for 30 days Comment on above: refills at qty 30 fo r 30 days Triamcinolone (1 source) Corticosteroid Start: 9 End: 9 NASACORT AQ, 55MCG/ACT (Nasal Aerosol Solution) 2 (two) Aerosol Soln qd for 0 days Refills: 0 Ordered: 24-May-2008 Florencia Stallings Start : 24-May-2008 End : 25-Aug-2008 Inactive varenicline 0.5 mg oral tablet (2 sources) Partial Cholinergic Nicotinic Agonist Start: 9 End: 9 take 0.5 mg by mouth once, then take 1 mg by mouth CHANTIX STARTING MONTH JOCELYNE, 0.5 MG X 11 &1 MG X 42 (Oral Miscellaneous) Misc for 0 days Refills: 0 Ordered: 24-May-2008 Florencia Stallings Start : 24-May-2008 End : 25-Aug-2008 Inactive Start: 05-24-2008 End: 08-25-2008 take 1 tablet by mouth twice daily CHANTIX CONTINUING MONTH JOCELYNE, 1MG (Oral Tablet) 1 (one) Tablet bid for 0 days Quantity: 60 {Tablet} Refills: 1 Ordered: 24-May-2008 Florencia Stallings Start : 24-May-2008 End : 25-Aug-2008 Inactive vilazodone hydrochloride 40 mg oral tablet (1 source) Start: 01-04-2011 End: 02-03-2011 take 1 tablet by mouth once daily VIIBRYD, 40MG (Oral Tablet) 1 Tablet qd for 30 days Refills: 0 Ordered: 04-Feb-2011 Taina Arnold RN Start : 04-Jan-2011 End : 03-Feb-2011 Inactive Comments: titration pack given as sample Comment on above: titration pack given as sample Problems Active Problems Problem Classification Problem Date Documented Da te Episodic/Chronic Anxiety disorders (6 sources) Anxiety; Translations: [Anxiety] 05-12-2015 Chronic 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; 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 Chronic Cataract (2 sources) Cataract; Translations: [Unspecified cataract] 12-12-2022 Chronic Chronic obstructive pulmonary disease and bronchiectasis (12 sources) Moderate chronic obstructive pulmonary disease; Translations: [Chronic obstructive pulmonary disease, unspecified] Chronic Chronic obstructive pulmonary disease and bronchiectasis (3 sources) Chronic obstructive pulmonary disease and bronchiectasis Complications of surgical procedures or medical care (15 sources) History of total thyroidectomy; Translations: [Postprocedural hypothyroidism] 08-06-2017 Chronic Esophageal disorders (1 source) Diverticulum of esophagus, acquired; Translations: [DIVERTICULUM, ESOPHAGUS, ACQUIRED] 05-12-2015 Episodic Fever of unknown origin (3 sources) Fever with chills; Translations: [Fever] 05-12-2015 Episodic Genitourinary symptoms and ill-defined conditions (2 sources) Dysuria; Translations: [Dysuria] Resolved: 03-22-2009 03-22-2009 Episodic Heart valve disorders (8 sources) Heart murmur; Translations: [Cardiac murmur, unspecified] 06-03-2019 Episodic Immunizations and screening for infectious disease (1 source) Need for prophylactic vaccination and inoculation against influenza Episodic Influenza (2 sources) Influenza; Translations: [Flu] 05-12-2015 Episodic Lymphadenitis (16 sources) Lymphadenopathy; Translations: [Enlarged lymph nodes, unspecified] 06-03-2019 Episodic Menopausal disorders (1 source) Menopausal flushing; Translations: [Hot flashes] 05-12-2015 Chronic Comment on above: conglomeruaion of me nopausal type sx Menstrual disorders (3 sources) Amenorrhea; Translations: [Amenorrhea] 05-12-2015 Chronic Comment on above: FSH and LH prove men opause Mood disorders (10 sources) Depressive disorder; Translations: [Depressive disorder] 05-12-2015 Chronic Comment on above: situational flare Noninfectious gastroenteritis (2 sources) Gastroenteritis; Translations: [Gastroenteritis] 05-12-2015 Episodic Nutritional deficiencies (3 sources) Vitamin B12 deficiency (non anemic); Translations: [Cobalamin deficiency] 05-12-2015 Episodic Osteoarthritis (7 sources) Osteoarthritis of left knee joint; Translations: [Unilateral primary osteoarthritis, left knee] Chronic Osteoporosis (1 source) Osteoporosis; Translations: [Age-related osteoporosis without current pathological fracture] 04-22-2023 Chronic Other bone disease and musculoskeletal deformities (3 sources) Osteopenia with high fracture risk; Translations: [Other specified disorders of bone density and structure, unspecified site] 11-06-2022 Episodic Other bone disease and musculoskeletal deformities (2 sources) Other specified disorders of bone density and structure, unspecified site; Translations: [Disorder of bone and cartilage, unspecified] 11-06-2022 Episodic Other connective tissue disease (1 source) Imaging of thorax abnormal; Translations: [Abnormal chest CT] 05-12-2015 Episodic Other connective tissue disease (2 sources) Pain in calf; Translations: [Calf pain] 05-12-2015 Episodic Other connective tissue disease (1 source) Medial epicondylitis; Translations: [Epicondylitis elbow, medial] 05-12-2015 Episodic Other connective tissue disease (1 source) Adhesive capsulitis of unspecified shoulder; Translations: [Adhesive capsulitis of unspecified shoulder] Onset: 03-02-2025 Episodic Other ear and sense organ disorders (5 sources) Pain of ear structure; Translations: [Otalgia, unspecified ear] 07-31-2022 Episodic Other female genital disorders (1 source) Dysfunctional uterine bleeding; Translations: [DUB (dysfunctional uterine bleeding)] 05-12-2015 Chronic Other lower respiratory disease (2 sources) Wheezing; Translations: [Wheezing] Resolved: 03-22-2009 05-12-2015 Episodic Other lower respiratory disease (4 sources) Cough; Translations: [Cough] Resolved: 01-22-2010 05-12-2015 Episodic Other lower respiratory disease (2 sources) Dyspnea Episodic Other lower respiratory disease (1 source) Dyspnea on exertion; Translations: [SOB (shortness of breath) on exertion] 05-12-2015 Episodic Other non-traumatic joint disorders (7 sources) Pain in left knee; Translations: [Left knee pain] Episodic Other non-traumatic joint disorders (1 source) Pain in right shoulder; Translations: [Pain in right shoulder] Onset: 02-14-2025 Episodic Other non-traumatic joint disorders (1 source) Pain in unspecified shoulder; Translations: [Pain in unspecified shoulder] Onset: 01-21-2025 Episodic Other screening for suspected conditions (not mental disorders or infectious disease) (8 sources) CT of chest abnormal; Translations: [Abnormal findings on diagnostic imaging of other specified body structures] 08-06-2017 Chronic Other screening for suspected conditions (not mental disorders or infectious disease) (4 sources) Breast neoplasm screening status; Translations: [Thyroid hormone tests abnormal] Onset: 04-22-2024 Resolved: 05-12-2015 05-12-2015 Episodic Comment on above: on rx methazole nad shewmon treating Other upper respiratory disease (1 source) Allergic rhinitis due to other allergen Chronic Other upper respiratory disease (1 source) Allergic rhinitis; Translations: [Allergic rhinitis due to other allergen] 05-12-2015 Chronic Other upper respiratory disease (8 sources) Seasonal allergy; Translations: [Other seasonal allergic rhinitis] 12-24-2019 Chronic Other upper respiratory disease (1 source) Other seasonal allergic rhinitis; Translations: [Allergic rhinitis, cause unspecified] Chronic Other upper respiratory disease (2 sources) Congestion of nasal sinus; Translations: [Sinus congestion] Resolved: 03-22-2009 05-12-2015 Episodic Other upper respiratory infections (20 sources) Acute sinusitis, unspecified; Translations: [Acute pharyngitis] Onset: 10-03-2009 05-12-2015 Episodic Pneumonia (except that caused by tuberculosis or sexually transmitted disease) (2 sources) Pneumonia; Translations: [Pneumonia] Resolved: 05-12-2015 05-12-2015 Episodic Residual codes; unclassified (1 source) Tobacco user; Translations: [Tobacco use disorder] 05-12-2015 Chronic Residual codes; unclassified (6 sources) Postmenopausal state; Translations: [Asymptomatic menopausal state] 05-12-2015 Episodic Residual codes; unclassified (1 source) Edema; Translations: [LOWER EXTREMITITY EDEMA] 05-12-2015 Episodic Residual codes; unclassified (1 source) Needs influenza immunization; Translations: [Need for prophylactic vaccination and inoculation against influenza] 05-12-2015 Episodic Residual codes; unclassified (8 sources) Tobacco user; Translations: [Tobacco use] 01-02-2018 Episodic Residual codes; unclassified (8 sources) Body mass index 20-24 - normal; Translations: [Body mass index (BMI) 24.0-24.9, adult] 08-06-2017 Episodic Residual codes; unclassified (3 sources) Asymptomatic menopausal state; Translations: [Asymptomatic postmenopausal status (age-related) (natural)] 08-21-2022 Episodic Residual codes; unclassified (1 source) History of total thyroidectomy; Translations: [Other specified postprocedural states] 08-06-2017 Episodic Screening and history of mental health and substance abuse codes (8 sources) Tobacco use and exposure - finding; Translations: [Personal history of nicotine dependence] 03-20-2021 Episodic Substance-related disorders (13 sources) Tobacco use disorder; Translations: [Cigarette smoker ] Onset: 03-03-2025 Chronic Comment on above: > 30 pack years quit 2018 Thyroid disorders (20 sources) Hypothyroidism, unspecified; Translations: [Goiter] Onset: 12-18-2010 05-12-2015 Chronic Comment on above: s/p thyriod resectio n secondary to Graves disease Unclassified (20 sources) Unclassified (3 sources) Patient encounter status; Translations: [Encounter for screening for lipid disorder] Resolved: 05-12-2015 05-12-2015 Unclassified (2 sources) Screening status; Translations: [Encounter for screening for malignant neoplasm of colon (Renamed from Special screening for malignant neoplasms, colon)] 05-12-2015 Unclassified (1 source) Postmenopausal Unclassified (2 sources) Breast cancer screening Unclassified (1 source) Abnormal chest CT Urinary tract infections (2 sources) Urinary tract infectious disease; Translations: [Urinary tract infection, site not specified] Resolved: 01-22-2010 05-12-2015 Episodic Viral infection (4 sources) Viral infection, unspecified; Translations: [Viral disease] 05-12-2015 Episodic Past or Other Problems Problem Classification Problem Date Documented Date Episodic/Chronic Adjustment disorders (1 source) Grief finding; Translations: [Grief] Resolved: 05-12-2015 05-12-2015 Chronic Administrative/social admission (1 source) Medical examinations/reports status; Translations: [Well woman exam] Resolved: 05-12-2015 [...] source) Deliveries (Parity); Translations: [Deliveries (Parity)] 05-12-2015 Comment on above: 1 Unclassified (4 sources) Abnormal TSH (794.5) Unclassified (2 sources) DIVERTICULUM, ESOPHAGUS, ACQUIRED (530.6) Unclassified (4 sources) Thyromegaly (240.9) Unclassified (1 source) Hot Flashes (782.62) Unclassified (1 source) Pregnancies (); Translations: [Pregnancies ()] 05-12-2015 Comment on above: 1 Unclassified (1 source) Well Woman Exam (V72.31) (Pap,Mammo,Routine Female) (Renamed from Well Woman V72.31 (p,m)) Unclassified (6 sources) Unspecified Diagnosis 05-12-2015 Unclassified (1 source) DUB (626.8) Unclassified (1 source) Abnormal Lung Sounds/Rales (786.7) Unclassified (1 source) Body aches (780.96) Unclassified (1 source) Body aches Unclassified (1 source) Epicondylitis elbow, medial (726.31) Unclassified (1 source) Annual physical exam Unclassified (1 source) Grief Results Test Name Value Interpretation Reference Range Facility Upper Ext Joint Only(Routine )on 02-22-2025 Upper Ext Joint Only(Routine) [facility] Imaging Services [address] [place] [address] [id number] Upper Ext Joint Only(Routine) MR#: [id number] Acct: [id number] Name: ADELAIDA VINES Rep #: [id number] : 1965 F 59 From: Abhijit Young MD PCP: Dr. Ya Garibay DO Status: REG CLI Study: Upper Ext Joint Only(Routine) Date of Exam: 04/24/24 Exam# [id number] Ordering Dr: Ya Garibay DO PROCEDURE: UPPER EXT JOINT ONLY(ROUTINE) 02/22/2025 REASON FOR EXAM: MRI SHOULDER RIGHT; SHOULDER PAIN, BICEP BURSITIS/TENDONITIS SUSP TECHNIQUE: Procedure Code: MRIUEJ Modality: MR Procedure: UPPER EXT JOINT ONLY(ROUTINE) T1, T2, PD, multiplanar and multisequence images were obtained without IV contrast administration. COMPARISON: COMPARISON: None FINDINGS: Bone Marrow: There is no bony contusion or occult fracture. AC joint: There is mild AC joint hypertrophy without evidence of separation. There is a type 3 acromion with impingement configuration. Rotator cuff: There is no muscular atrophy. There is moderate distal supraspinatus, infraspinatus, and subscapularis tendinopathy without full-thickness tear or retraction. The teres minor appears intact. Labrum: There is a tear of the labrum from the 12-3 o'clock position with a component of periosteal stripping of the anterior labrum. There is thickening and edema throughout the inferior glenohumeral ligament. Biceps tendon: The biceps tendon is present within the biceps tendon groove, with intact anchors. Effusion: There is a small joint effusion. There is fluid in the subacromial subdeltoid bursa, with bursitis. MRI/Upper Ext Joint Only(Routine) IMPRESSION: There is mild AC joint hypertrophy without evidence of separation. There is a type 3 acromion with impingement configuration. There is moderate distal supraspinatus, infraspinatus, and subscapularis tendinopathy without full- thickness tear or retraction. There is a tear of the labrum from the 12-3 o'clock position with a component of periosteal stripping of the anterior labrum. There is thickening and edema throughout the inferior glenohumeral ligament. There is a small joint effusion. There is fluid in the subacromial subdeltoid bursa, with bursitis. Reading Location: [facility] CC: Dr. Ya Garibay DO Net C Developer: Signed Normal [facility] Shoulder min 2 Viewson 01-21 Shoulder min 2 Views [facility] Imaging Services [address] [place], [place] [id number] Shoulder min 2 Views MR#: [id number] Acct: [id number] Name: ADELAIDA VINES Rep #: [id number] : 1965 F 59 From: Rosa Molina MD PCP: Dr. Ya Garibay DO Status: REG CLI Study: Shoulder min 2 Views Date of Exam: 01/21/25 Exam# [id number] Ordering Dr: Levi Morris PROCEDURE: SHOULDER MIN 2 VIEWS 01/21/2025 REASON FOR EXAM: SHOULDER PAIN TECHNIQUE: Procedure Code: RADSH Modality: DX Procedure: SHOULDER MIN 2 VIEWS Laterality: Right COMPARISON: None FINDINGS: Bones: No acute fracture or dislocation. Joints: Normal alignment of the acromioclavicular and glenohumeral joints. Soft tissues: Soft tissues are unremarkable. Other: RAD/Shoulder min 2 Views IMPRESSION: No acute osseous findings. Reading Location: [place] [address] CC: JOSE MANUEL Casas; Dr. Ya Garibay DO Net C Developer: Signed [facility] Urgent Care Visit Reporton 1 Urgent Care Visit Report [facility] [address], [address] [place] [address] OFFICE VISIT Date of Service: 01/21/25 MR#: [id number] Acct: [id number] Name: ADELAIDA VINES Rep #: [id number] : 1965 Provider: JOSE MANUEL Casas Age/Sex: 59/F Location: [email or web address] Status: Signed Intake Vital Signs 05/26/24 11:38 01/21/25 10:24 Height 5 ft 4 in BP 118/60 Blood Pressure Location Lt brachial Position Sitting Respiration 15 Pulse 73 Pulse Source NIBP Temp 97.3 F L Temp Source Oral Pulse Oximetry (%) 96 Oxygen Delivery Method room air Intake Visit Reasons: SHOULDER PAIN Chief Complaint: right shoulder pain 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 cannot lift or extend arm in any direction without severe pain. pain is daily but severity changes. no injury or trauma, no hx of injury. pt cannot sleep d/t pain [facility] Medical History Health care maintenance Osteoporosis Cataract Osteopenia with high risk of fracture Post-menopausal History of tobacco use COVID-19 Preventative health care Seasonal allergies Adenopathy Abnormal chest CT Tobacco abuse Stage 2 moderate COPD by GOLD classification BMI 24.0-24.9, adult Hypothyroid Graves disease Aortopulmonary window Cardiac murmur Enlarged lymph nodes Surgical History History of thyroidectomy, total History of mandibular surgery H/O thyroidectomy Hx of cholecystectomy H/O splenectomy Family History Mother Asthma Heart disease Cancer, Onset Age: 35 breast cancer Father Diabetes Heart disease Hypertension Cancer Sister Thyroid disorder Brother Diabetes Social History current occupational status: employed 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 Patient states she woke up 1 morning with her right shoulder being painful and states that this has worsened during the past 3 weeks. She states limited range of motion secondary to pain. She notes no injuries or previous injuries or issues with the shoulder. No numbness, tingling. No other associated symptoms or alleviating/aggravati ng factors. ROS Const Constitutional: No other (6 system ROS completed with pertinent findings in the HPI otherwise normal.) Exam Const General: cooperative and healthy appearing Resp Effort Inspection: normal respiratory effort Cardio Rate: regular rate Skin General: no rashes or lesions noted Neuro General: patient alert Extrem Other: Limited range of motion at the right shoulder. Appropriate capillary refill, sensation light touch throughout. Range of motion at the right elbow normal. Pain to palpation right posterior shoulder at the supraspinatus. Psych Appearance: grossly normal Mental Status: mental status grossly normal Coding Level of Care Code Off vis,est,level 4 Diagnoses Stiffness of right shoulder joint M25.611 Assessment and Plan Assessment and Plan (1) Stiffness of right shoulder joint: Status: Acute Plan: X-ray of the right shoulder read and interpreted by myself find no acute osseous abnormality however there is some degenerative arthrosis. Prednisone taper as prescribed today. Patient also advised she needs to report to orthopedics for further evaluation and treatment. Encouraged to get plenty of rest, drink lots of clear liquids, and use Tylenol (unless contraindicated) for comfort. Patient also educated on other symptomatic management techniques. To be seen in 7-10 days if no improvement; sooner if worsening of symptoms. Patient advised of potential red flags and when appropriate to report to the ED. Patient verbalized understanding and agreement with all the above. Orders: Orders Shoulder min 2 Views Today M25.519 - Pain in unspecified shoulder Medications: New (more content not included)... [facility] Dexa Bone Density Studyon Dexa Bone Density Study [facility] Imaging Services [address] [place] [id number] Dexa Bone Density Study MR#: [id number] Acct: [id number] Name: ADELAIDA VINES Rep #: [id number] : 1965 F 59 From: Oumou Broussard PCP: Dr. Ya Garibay DO Status: REG CLI Study: Dexa Bone Density Study Date of Exam: 01/20/25 Exam# [id number] Ordering Dr: Ya Garibay DO PROCEDURE: DEXA BONE DENSITY STUDY 01/20/2025 REASON FOR EXAM: F, age 59 y/o . Patient is postmenopausal.. TECHNIQUE: Procedure Code: BDDBD Modality: DX Procedure: DEXA BONE DENSITY STUDY COMPARISON: None FINDINGS: BMD and T-SCORES Lumbar spine: 0.832 g/cm2, T-score -2.0 Levels: L1 through L4 Left femoral neck: 0.513 g/cm2, T-score -3.0 Left total hip: 0.694 g/cm2, T-score -2.0 Right femoral neck: 0.584 g/cm2, T-score -2.4 Right total hip: 0.721 g/cm2, T-score -1.8 The World Health Organization has defined the following categories based on bone density: Normal bone density: T-score equal to or greater than -1.0 Osteopenia: T-score between -1.0 and -2.5 Osteoporosis: T-score equal to or less than -2.5 FRAX (or Comparable) Fracture Risk Assessment: 10 Year Probability of Fracture: Major Osteoporotic Fracture: 23% Hip Fracture: 6.6% (Note: FRAX is not to be reported in setting of normal range bone density, osteoporosis on DEXA, known history of osteoporosis, prior osteoporotic hip or vertebral fracture, or for any patient undergoing pharmacological treatment for bone loss.) The National Osteoporosis Foundation (NOF) recommends pharmacological treatment for patients with a FRAX 10-year risk of 3% or higher for a hip fracture, or 20% or higher for a major osteoporotic fracture, to prevent osteoporosis and reduce fracture risk. The patient does meet the pharmacological treatment recommendations for prevention of osteoporosis. BD/Dexa Bone Density Study IMPRESSION: OSTEOPOROSIS. Recommend follow-up as clinically warranted. Reading Location: [facility] CC: Dr. Ya Garibay DO Net C Developer: Signed [facility] SCRN MAMM (CAD)W/SON BILATo n 01-20-2025 SCRN MAMM (CAD)W/SON BILAT [facility] Imaging Services [address] [place] [address] SCRN MAMM (CAD)W/SON BILAT MR#: [id number] Acct: [id number] Name: ADELAIDA VINES Rep #: [id number] : 1965 F 59 From: Cheli Luna MD PCP: Dr. Ya Garibay DO Status: REG CLI Study: SCRN MAMM (CAD)W/SON BILAT Date of Exam: 06/15 Exam# [id number] Ordering Dr: Ya Garibay DO EXAM: SCRN MAMM (CAD)W/SON BILAT DATE: 01/20/2025 CLINICAL HISTORY: F, Age 59 y/o , SCRN MAMM (CAD)W/SON BILAT TECHNIQUE: Procedure Code: BISMWCADBTOM Modality: MG Procedure: SCRN MAMM (CAD)W/SON BILAT COMPARISON: Prior exam(s) dated 04/23/2023, 04/19/2022. FINDINGS: TISSUE DENSITY: There are scattered areas of fibroglandular density. Bilateral Breast Mammographic Findings: No significant masses, calcifications or other abnormalities are identified. BI/SCRN MAMM (CAD)W/SON BILAT IMPRESSION: There is no mammographic evidence of malignancy. OVERALL FINAL ASSESSMENT BI-RADS 1: NEGATIVE. RECOMMENDATION: Routine annual follow-up in 1 Year Additional Recommendation none A letter with findings and recommendations will be mailed to the patient. Reading Location: [facility] CC: Dr. Ya Garibay DO Net C Developer: Signed [facility] Absolute lymphocyte countOrd ered By: HEALTH ASSESSMENT on 12-27-2024 Lymphocytes Auto (Unsp spec) [#/Vol] 4.24 10*3/uL 0.83-4.51 [facility] Absolute neutrophil countOrd ered By: HEALTH ASSESSMENT on 12-27-2024 Neutrophils (Bld) [#/Vol] 2.3 10*3/uL 2.0-7.7 [facility] Absolute nucleated red blood cell countOrdered By: HEALTH ASSESSMENT on 12-27-2024 Nucleated RBC (Bld) [#/Vol] 0.00 10*3/uL 0-5 [facility] Anion gap in Serum or Plasma Ordered By: HEALTH ASSESSMENT on 12-27-2024 Anion gap [Moles/Vol] 11 mmol/L 5-15 [facility] BUN/creatinine ratioOrdered By: HEALTH ASSESSMENT on 12-27-2024 Urea nitrogen/Creatinine [Mass ratio] 13.4 mg/mg 10-20 [facility] Comment on above: Previous reported re sult: 12.8 RATIOEdited by: AUTOINS on 12/27/24:1102 AMENDED REPORT 12/27/24 1102 BUN/CRE previously reported as: 12.8 RATIO Bilirubin directOrdered By: HEALTH ASSESSMENT on 12-27-2024 Bilirubin.direct [Mass/Vol] 0.11 mg/dL 0.00-0.30 [facility] Comment on above: Previous reported re sult: 0.12 mg/dLEdited by: AUTOINS on 12/27/24:1102 AMENDED REPORT 12/27/24 1102 D BILI previously reported as: 0.12 mg/dL Bilirubin, totalOrdered By: HEALTH ASSESSMENT on 12-27-2024 Bilirubin [Mass/Vol] 0.27 mg/dL 0.00-1.30 [facility] Comment on above: Previous reported re sult: 0.29 mg/dLEdited by: AUTOINS on 12/27/24:1102 AMENDED REPORT 12/27/24 1102 T BILI previously reported as: 0.29 mg/dL CBC, Employeeon 12-27-2024 Absolute Lymph 4.24 X10 3/uL Normal 0.83-4.51 [facility] Comment on above: Performed By: #### L 100.0200, L500.2900 #### [facility] [address] [place], [address] Absolute Neut 2.3 X10 3/uL Normal 2.0-7.7 [facility] Comment on above: Performed By: #### L 100.0200, L500.2900 #### [facility] [address] [place], [address] Basophils/100 WBC (Bld) 1.6 % High 0-1 [facility] Comment on above: Performed By: #### L 100.0200, L500.2900 #### [facility] [address] [place], [address] Eosinophils/100 WBC (Bld) 3.2 % Normal 0-5 [facility] Comment on above: Performed By: #### L 100.0200, L500.2900 #### [facility] [address] [place], [address] Erythrocyte distribution width (RBC) [Ratio] 13.5 % Normal 11.6-14.6 [facility] Comment on above: Performed By: #### L 100.0200, L500.2900 #### [facility] [address] [place], [address] Hematocrit (Bld) [Volume fraction] 39.8 % Normal 37-47 [facility] Comment on above: Performed By: #### L 100.0200, L500.2900 #### [facility] [address] [place], [address] Hemoglobin (Bld) [Mass/Vol] 13.2 g/dL Normal 12.0-15.0 [facility] Comment on above: Performed By: #### L 100.0200, L500.2900 #### [facility] [address] [place], [address] Lymphocytes/100 WBC (Bld) 56.6 % High 19-41 [facility] Comment on above: Performed By: #### L 100.0200, L500.2900 #### [facility] [address] [place], [address] MCH (RBC) [Entitic mass] 31.9 pg Normal 27.0-32.0 [facility] Comment on above: Performed By: #### L 100.0200, L500.2900 #### [facility] [address] [place], [address] MCHC (RBC) [Mass/Vol] 33.2 g/dL Normal 32-36 [facility] Comment on above: Performed By: #### L 100.0200, L500.2900 #### [facility] [address] [place], [address] MCV (RBC) [Entitic vol] 96.1 fL Normal 81-99 [facility] Comment on above: Performed By: #### L 100.0200, L500.2900 #### [facility] [address] [place], [address] Monocytes/100 WBC (Bld) 8.4 % Normal 0-10 [facility] Comment on above: Performed By: #### L 100.0200, L500.2900 #### [facility] [address] [place], [address] Neutrophils/100 WBC (Bld) 30.1 % Low 47-70 [facility] Comment on above: Performed By: #### L 100.0200, L500.2900 #### [facility] [address] [place], [address] NRBC # 0.00 10 3/uL Normal 0-5 [facility] Comment on above: Performed By: #### L 100.0200, L500.2900 #### [facility] [address] [place], [address] Nucleated RBC (Bld) [#/Vol] 0 10*3/uL Normal 0-5 [facility] Comment on above: Performed By: #### L 100.0200, L500.2900 #### [facility] [address] [place], [address] Platelet mean volume (Bld) [Entitic vol] 11.9 fL Normal 6.2-12.0 [facility] Comment on above: Performed By: #### L 100.0200, L500.2900 #### [facility] [address] [place], [address] Platelets (Bld) [#/Vol] 257 10*3/uL Normal 150-450 [facility] Comment on above: Performed By: #### L 100.0200, L500.2900 #### [facility] [address] [place], [address] RBC (Bld) [#/Vol] 4.14 10*6/uL Low 4.2-5.4 [facility] Comment on above: Performed By: #### L 100.0200, L500.2900 #### [facility] [address] [place], [address] RDW SD 48.1 fl High 35.1-43.9 [facility] Comment on above: Performed By: #### L 100.0200, L500.2900 #### [facility] [address] [place], [address] WBC (Bld) [#/Vol] 7.5 10*3/uL Normal 4.4-11.0 [facility] Comment on above: Performed By: #### L 100.0200, L500.2900 #### [facility] [address] [place], [address] Calculated very low density lipoprotein (VLDL) cholesterol measurementOrdered By: HEALTH ASSESSMENT on 12-27-2024 Calculated very low density lipoprotein (VLDL) cholesterol measurement 18 mg/dL 5-40 [facility] Carbon dioxide, total [Moles /volume] in Central venous bloodOrdered By: HEALTH ASSESSMENT on 12-27-2024 CO2 [Moles/Vol] 25.0 mmol/L 21.0-32.0 [facility] Chloride assayOrdered By: HE ALTH ASSESSMENT on 12-27-2024 Chloride [Moles/Vol] 105 mmol/L 98-108 [facility] Employee Profileon CHOL:HDL 2.45 Normal [facility] Comment on above: Performed By: #### L 100.0200, L500.2900 #### [facility] [address] [place], [address] Cholesterol [Mass/Vol] 164 mg/dL Normal <=200 [facility] Comment on above: Result Comment: Chol esterol level, Desirable <200 mg/dL Borderline high cholesterol 200-239 mg/dL High cholesterol >=240 mg/dL Recommendations of the NCEP Adult Treatment Panel for the following risk-cutoff thresholds for the [place] population. Performed By: #### L 100.0200, L500.2900 #### [facility] [address] [place], [address] Cholesterol in HDL [Mass/Vol] 67 mg/dL Normal [facility] Comment on above: Result Comment: Isa onal Cholesterol Education Program (NCEP) guidelines: <40 mg/dL: Low HDL-cholesterol (major risk factor for CHD) >= 60 mg/dL: High HDL-cholesterol (negative risk factor for CHD) HDL-cholesterol is affected by a number of factors, e.g. smoking, exercise, hormones, sex and age. Performed By: #### L 100.0200, L500.2900 #### [facility] [address] [place], [address] Cholesterol in LDL [Mass/Vol] 79 mg/dL Normal [facility] Comment on above: Result Comment: Bord zkwkbz=785-961 mg/dL Higher Vvkh=418 mg/dL or greater Friedwald Equation for LDL-C Performed By: #### L 100.0200, L500.2900 #### [facility] [address] [place], [address] Cholesterol in VLDL [Mass/Vol] 18 mg/dL Normal 5-40 [facility] Comment on above: Performed By: #### L 100.0200, L500.2900 #### [facility] [address] [place], [address] LDH 160 U/L Normal 84-246 [facility] Comment on above: Performed By: #### L 100.0200, L500.2900 #### [facility] [address] [place], [address] Phosphate [Mass/Vol] 4.3 mg/dL Normal 2.7-4.5 [facility] Comment on above: Performed By: #### L 100.0200, L500.2900 #### [facility] [address] [place], [address] Triglyceride [Mass/Vol] 90 mg/dL Normal [facility] Comment on above: Result Comment: The drugs N-Acetylcysteine and Metamizole may falsely depress this assay. Normal range: <150 mg/dL Borderline High: 150-199 mg/dL High: 200-499 mg/dL Very High: >500 mg/dL Performed By: #### L 100.0200, L500.2900 #### [facility] [address] [place], [address] URIC 4.2 mg/dL Normal 2.6-6.0 [facility] Comment on above: Result Comment: The drugs N-Acetylcysteine and Metamizole may falsely depress this assay. Performed By: #### L 100.0200, L500.2900 #### [facility] [address] [place], [address] Erythrocyte distribution wid th ratioOrdered By: HEALTH ASSESSMENT on 12-27-2024 Erythrocyte distribution width (RBC) [Ratio] 13.5 % 11.6-14.6 [facility] Erythrocyte distribution wid th standard deviationOrdered By: HEALTH ASSESSMENT on 12-27-2024 Erythrocyte distribution width (RBC) [Ratio] 48.1 fl High 35.1-43.9 [facility] Glomerular filtration rate ( GFR) estimation/1.73 sq m using serum, plasma, or whole bOrdered By: HEALTH ASSESSMENT on 12-27-2024 GFR/1.73 sq M.predicted among non-blacks MDRD (S/P/Bld) [Vol rate/Area] 91 mL/min/{1.73_m2} >60 [facility] Comment on above: mL/min/1.73m2 CKD-EP I Creatinine Equation (2020) Hematocrit Auto (Bld) [Volum e fraction]Ordered By: HEALTH ASSESSMENT on 12-27-2024 Hematocrit (Bld) [Volume fraction] 39.8 % 37-47 [facility] Hemoglobin measurementOrdere d By: HEALTH ASSESSMENT on 12-27-2024 Hemoglobin (Bld) [Mass/Vol] 13.2 g/dL 12.0-15.0 [facility] LDL calc ser/plasOrdered By: HEALTH ASSESSMENT on 12-27-2024 Cholesterol in LDL [Mass/Vol] 79 mg/dL [facility] Comment on above: Qbmekkljik=995-107 m g/dL & Higher Zipz=967 mg/dL or greaterFriedwald Equation for LDL-C Laboratory - Chemistry and C hemistry - challengeOrdered By: HEALTH ASSESSMENT on 12-27-2024 AST [Catalytic activity/Vol] 17 U/L <32 [facility] Lactate dehydrogenase (LDH) measurementOrdered By: HEALTH ASSESSMENT on 12-27-2024 LDH [Catalytic activity/Vol] 160 U/L 84-246 [facility] MCV (mean corpuscular volume ) determinationOrdered By: HEALTH ASSESSMENT on 12-27-2024 MCV (RBC) [Entitic vol] 96.1 fL 81-99 [facility] Mean corpuscular hemoglobin (MCH) determinationOrdered By: HEALTH ASSESSMENT on 12-27-2024 MCH (RBC) [Entitic mass] 31.9 pg 27.0-32.0 [facility] Mean corpuscular hemoglobin concentration (MCHC) determinationOrdered By: HEALTH ASSESSMENT on 12-27-2024 MCHC (RBC) [Mass/Vol] 33.2 g/dL 32-36 [facility] Mean platelet volume determi nationOrdered By: HEALTH ASSESSMENT on 12-27-2024 Platelet mean volume (Bld) [Entitic vol] 11.9 fL 6.2-12.0 [facility] Neutrophil percentageOrdered By: HEALTH ASSESSMENT on 12-27-2024 Neutrophils/100 WBC (Bld) 30.1 % Low 47-70 [facility] Nucleated red blood cell per centageOrdered By: HEALTH ASSESSMENT on 12-27-2024 Nucleated RBC/100 WBC (Bld) [Ratio] 0 % 0-5 [facility] Platelet countOrdered By: HE ALTH ASSESSMENT on 12-27-2024 Platelets (Bld) [#/Vol] 257 10*3/uL 150-450 [facility] Potassium measurement (mass/ volume)Ordered By: HEALTH ASSESSMENT on 12-27-2024 Potassium (Unsp spec) [Mass/Vol] 4.4 mmol/L 3.3-5.1 [facility] RBC Auto (Bld) [#/Vol]Ordere d By: HEALTH ASSESSMENT on 12-27-2024 RBC (Bld) [#/Vol] 4.14 10*6/uL Low 4.2-5.4 [facility] Screening total cholesterol/ high density lipoprotein (HDL) cholesterol ratioOrdered By: HEALTH ASSESSMENT on 12-27-2024 Cholesterol.total/Earnestine sterol in HDL [Mass ratio] 2.45 {ratio} [facility] Serum creatinine measurement (mass/volume)Ordered By: HEALTH ASSESSMENT on 12-27-2024 Creatinine [Mass/Vol] 0.73 mg/dL 0.70-1.20 [facility] Comment on above: Previous reported re sult: 0.75 mg/dLEdited by: Tribal NovaRandy on 12/27/24:1102 AMENDED REPORT 12/27/24 1102 CREAT,SERUM previously reported as: 0.75 mg/dL Serum globulin measurementOr dered By: HEALTH ASSESSMENT on 12-27-2024 Globulin (S) [Mass/Vol] 3.2 g/dL 2.2-4.2 [facility] Serum glucose measurement (m ass/volume)Ordered By: HEALTH ASSESSMENT on 12-27-2024 Glucose [Mass/Vol] 98 mg/dL 70-99 [facility] Comment on above: Previous reported re sult: 97 mg/dLEdited by: Tribal NovaS on 12/27/24:1102 AMENDED REPORT 12/27/24 1102 GLU previously reported as: 97 mg/dL Serum or plasma alanine bashir otransferase (ALT) measurementOrdered By: HEALTH ASSESSMENT on 12-27-2024 ALT [Catalytic activity/Vol] 13 U/L <35 [facility] Serum or plasma albumin huey urement (mass/volume)Ordered By: HEALTH ASSESSMENT on 12-27-2024 Albumin [Mass/Vol] 4.1 g/dL 3.4-4.8 [facility] Comment on above: Previous reported re sult: 4.2 g/dLEdited by: AUTOINS on 12/27/24:1102 AMENDED REPORT 12/27/24 1102 ALB previously reported as: 4.2 g/dL Serum or plasma albumin/glob ulin mass ratioOrdered By: HEALTH ASSESSMENT on 12-27-2024 Albumin/Globulin [Mass ratio] 1.3 {ratio} 0.9-2.4 [facility] Comment on above: Previous reported re sult: 1.3 RATIOEdited by: AUTOINS on 12/27/24:1102 AMENDED REPORT 12/27/24 1102 A/G previously reported as: 1.3 RATIO Serum or plasma alkaline mariza sphatase measurementOrdered By: HEALTH ASSESSMENT on 12-27-2024 ALP [Catalytic activity/Vol] 61 U/L 35-104 [facility] Comment on above: Previous reported re sult: 60 U/LEdited by: AUTOINS on 12/27/24:1102 AMENDED REPORT 12/27/24 1102 ALK P previously reported as: 60 U/L Serum or plasma calcium huey urement (mass/volume)Ordered By: HEALTH ASSESSMENT on 12-27-2024 Calcium [Mass/Vol] 9.1 mg/dL 7.6-11.0 [facility] Comment on above: Previous reported re sult: 8.9 mg/dLEdited by: AUTOINS on 12/27/24:1102 AMENDED REPORT 12/27/24 1102 CA previously reported as: 8.9 mg/dL Serum or plasma cholesterol in HDL measurement (mass/volume)Ordered By: HEALTH ASSESSMENT on 12-27-2024 Cholesterol in HDL [Mass/Vol] 67 mg/dL >40 [facility] Comment on above: National Cholesterol Education Program (NCEP) guidelines:<40 mg/dL: Low HDL-cholesterol (major risk factor for CHD)>= 60 mg/dL: High HDL-cholesterol (negative risk factor for CHD)HDL-cholesterol is affected by a number of factors, e.g. smoking, exercise, hormones, sex and age. Serum or plasma cholesterol measurement (mass/volume)Ordered By: HEALTH ASSESSMENT on 12-27-2024 Cholesterol [Mass/Vol] 164 mg/dL <201 [facility] Comment on above: Cholesterol level, D esirable <200 mg/dLBorderline high cholesterol 200-239 mg/dLHigh cholesterol >=240 mg/dLRecommendations of the NCEP Adult Treatment Panel for the following risk-cutoff thresholds for the [place] population. Serum or plasma urea nitroge n measurement (mass/volume)Ordered By: HEALTH ASSESSMENT on 12-27-2024 Urea nitrogen [Mass/Vol] 10 mg/dL 4-19 [facility] Serum or plasma uric acid me asurement (mass/volume)Ordered By: HEALTH ASSESSMENT on 12-27-2024 Urate [Mass/Vol] 4.2 mg/dL 2.6-6.0 [facility] Comment on above: The drugs N-Acetylcy steine and Metamizole may falsely depress this assay. Sodium levelOrdered By: [facility] ASSESSMENT on 12-27-2024 Sodium [Moles/Vol] 141 mmol/L 133-145 [facility] Total proteinOrdered By: [facility] ASSESSMENT on 12-27-2024 Protein [Mass/Vol] 7.3 g/dL 5.9-8.4 [facility] Triglycerides measurementOrd ered By: HEALTH ASSESSMENT on 12-27-2024 Triglyceride [Mass/Vol] 90 mg/dL <199 [facility] Comment on above: The drugs N-Acetylcy steine and Metamizole may falsely depress this assay. Normal range: <150 mg/dLBorderline High: 150-199 mg/dLHigh: 200-499 mg/dLVery High: >500 mg/dL White blood cell (WBC) count Ordered By: HEALTH ASSESSMENT on 12-27-2024 WBC (Bld) [#/Vol] 7.5 10*3/uL 4.4-11.0 [facility] Pulmonary Visit Reporton Pulmonary Visit Report [facility] [place] [address] [place], [place] [id number] OFFICE VISIT Date of Service: 05/26/24 MR#: [id number] Acct: [id number] Name: ADELAIDA VINES Rep #: [id number] : 1965 Provider: ISMAEL Johnson Age/Sex: 58/F Location[place] [facility] [place] Status: Signed Assessment and Plan Assessment and Plan (1) Stage 2 moderate COPD by GOLD classification: Status: Chronic Plan: Stable, she does not appear to be an exacerbation of COPD today. No need for prednisone or antibiotic. Continue current maintenance medication, symptomatically controlled with the use of Stiolto. No additional testing at this time. Contact the office for any new or worsening symptoms. An acute visit and typically be arranged within 1-2 days. Follow-up in April 2025. (2) Smoking greater than 30 pack years: Status: Chronic Comment: > 30 pack years quit 2018 Plan: Encourage ongoing smoking cessation. She is appropriate for LDCT in 12 months. Ordered for March 2025. Orders: Orders Low Dose CT Lung Screening 03/21/25 F17.200 - Nicotine dependence, unspecified, uncomplicated, F17.210 - Nicotine dependence, cigarettes, uncomplicated HPI 1 Y FU Chief Complaint: Test results HPI Comments Details: This patient presents to the office today for follow-up of her stage II COPD with seasonal allergies. She is ambulatory and currently on room air. She has not recently been seen in the ED or urgent care for any respiratory illness. She has not required any antibiotics or prednisone for any breathing problems. She is compliant with use of Stiolto 2 puffs once daily. She uses her albuterol rescue inhaler a couple times a month. If you recall, she quit smoking July 08, 2018. She is about to celebrate 5 years. She denies any shortness of breath. She denies any cough, sputum production or hemoptysis.. She denies any wheezing, chest tightness, chest pain or palpitations. She also denies any fever, chills or body aches. Test results personally reviewed with the patient: Low-dose CT lung screening completed on March 23, 2024. No suspicious nodules are seen. Intake Vital Signs 05/14/23 15:13 05/26/24 11:38 Height 5 ft 4 in 5 ft 4 in Weight: 144 lb BMI 24.7 BP 108/70 Blood Pressure Location Lt brachial Position Sitting Respiration 18 Pulse 65 Pulse Source Monitor Temp 97.1 F L Temperature Source Temporal Artery Pulse Oximetry (%) 99 Oxygen Delivery Method room air Intake Visit Reasons: 1 Y FU Chief Complaint: 6m f/u Water System Operator Required: No Accompanied by: Self Allergies No Known Allergies Allergy (Verified 05/26/24 15:16) Medications ???Medication ???Instructions ???Recorded ???Confirmed ???Type multivitamin 1 tab PO QDAY 07/30/17 05/26/24 Hi story alendronate 70 mg tablet (Fosamax) 70 mg PO QWEEK 05/14/23 05/26/24 History levothyroxine 75 mcg tablet 75 mcg PO DAILY #90 tabs 01/22/24 05/26/24 Rx albuterol sulfate 90 mcg/actuation 2 puff inhalation Q4H PRN 05/26/24 Rx aerosol inhaler (Ventolin HFA) shortness of breath or wheezing #18 grams tiotropium 2.5 mcg-olodaterol 2.5 2 puff inhalation DAILY #4 grams 05/26/24 05/26/24 Rx mcg/actuation mist for inhalation (Stiolto Respimat) [facility] Medical History (Reviewed 05/26/24 @ 15:30 by Felicita Johnson INTERVENTIONAL NURSE, INTERVENTIONAL NURSE-C) Health care maintenance Osteoporosis Cataract Osteopenia with high risk of fracture Post-menopausal History of tobacco use COVID-19 Preventative health care Seasonal allergies Adenopathy Abnormal chest CT Tobacco abuse Stage 2 moderate COPD by GOLD classification BMI 24.0-24.9, adult Hypothyroid Graves disease Aortopulmonary window Cardiac murmur Enlarged lymph nodes Surgical History History of thyroidectomy, total History of mandibular surgery H/O thyroidectomy Hx of cholecystectomy H/O splenectomy Family History Mother Asthma Heart disease Cancer, Onset Age: 35 breast cancer Father Diabetes Heart disease Hypertension Cancer Sister Thyroid disorder Brother Diabetes Social History current occupational status: employed 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 Normal [facility] Low Dose CT Lung Screeningon 03-23-[address] Lung Screening [facility] [address] [place], [place] [address] Low Dose CT Lung Screening MR#: [id number] Acct: [id number] Name: ADELAIDA VINES Rep #: [id number] : 1965 F 58 From: Lemuel patel MD PCP: Dr. Teri Muller MD Status: REG CL Study: Low Dose CT Lung Screening Date of Exam: 03/23 Exam# [id number] Ordering Dr: Felicita Johnson NP INTERVENTIONAL NURSE-C [id number] STUDY: LOW DOSE CT LUNG CANCER SCREENING REASON FOR EXAM: Female, 58 years old. Smoker, quit 07/08/18. The patient smoked 1 pack per day for 25 years. RADIATION DOSAGE (If Supplied By Facility): CTDIvol = ( 2.01 ) mGy, DLP = ( 67.71 ) mGycm TECHNIQUE: No contrast was administered. Low dose technique was utilized (average mAS-38 and kVp 120). 1.25 mm axial source images with a slice interval of 1.25-mm were reconstructed in lung windows. 2.5 mm axial source images with a slice interval of 2.5-mm were reconstructed in lung windows. 5.0 mm axial source images with a slice interval of 5.0-mm were reconstructed in soft tissue windows. COMPARISON: Comparison is made with prior study dated March 21, 2023. NODULES: No suspicious nodules are seen. Emphysema: Emphysematous changes. Stable scarring at the lung apices more prominent on the right side. Focal scarring in the anteromedial aspect of the right middle lobe. Endobronchial lesion: None Aorta: Unremarkable CORONARY ARTERIES: Coronary artery calcification is not seen. Heart: Unremarkable Pulmonary artery: Unremarkable Mediastinal nodes: Small mediastinal lymph nodes. Other chest and abdominal findings: The patient is status post splenectomy. CT/Low Dose CT Lung Screening IMPRESSION: Lung-RADS category 2 - Continue annual screening with LDCT in 12 months. IMPORTANT NOTES FOR USE: ACR Lung-RADS Version 1.1 Assessment Categories Release Date: 2018 Category: Coded 0-4 bases on nodule(s) with highest degree of suspicion. Negative screen is defined as categories 1 and 2; a positive screen is defined as categories 3 and 4. Category 3 and 4A nodules that are unchanged on interval CT should be coded as category 2, and individuals returned to screening in 12 months. Category 4X: Category 3 or 4 nodules with additional imaging findings that increase the suspicion of lung cancer, such as spiculation, GGN that doubles in size in 1 year, enlarged lymph notes, etc. Category Modifiers: S (significant finding unrelated to lung cancer) Electronically Signed: Lemuel Dunne MD at 10:01 EST Reading Location ID and State: [facility] / [place] , Service support , CC: ISMAEL Johnson; Dr. Teri Muller MD Net C Developer: Signed Normal [facility] Absolute lymphocyte countOrd ered By: HEALTH ASSESSMENT on 02-04-2023 Lymphocytes Auto (Unsp spec) [#/Vol] 2.72 10*3/uL 0.83-4.51 [facility] Absolute reticulocyte countO rdered By: HEALTH ASSESSMENT on 02-04-2023 Reticulocytes (Bld) [#/Vol] 0.00 10*3/uL 0-5 [facility] Basophil percentageOrdered B y: HEALTH ASSESSMENT on 02-04-2023 Basophil percentage 3.7 mg/dL 2.5-4.9 [facility] Bilirubin [Mass/Vol] 0.50 mg/dL 0.20-1.00 [facility] Comment on above: For patients on eltr ombopag therapy, use of Dimension Mcfall TBIL is not recommended. Chloride [Moles/Vol] 107 mmol/L 98-107 [facility] Cholesterol [Mass/Vol] 169 mg/dL <200 [facility] Comment on above: <200 mg/dL Desirable 200-240 mg/dL Borderline >240 mg/dL High Risk Glucose [Mass/Vol] 90 mg/dL 74-106 [facility] LDH [Catalytic activity/Vol] 169 U/L 84-246 [facility] Neutrophils (Bld) [#/Vol] 2.5 10*3/uL 2.0-7.7 [facility] Potassium [Moles/Vol] 4.1 mmol/L 3.5-5.1 [facility] Protein [Mass/Vol] 8.0 g/dL 6.4-8.2 [facility] Sodium [Moles/Vol] 140 mmol/L 136-145 [facility] Triglyceride [Mass/Vol] 75 mg/dL <199 [facility] Comment on above: The drugs N-Acetylcy steine and Metamizole may falsely depress this assay.Serum Triglycerides Reference Interval Normal <150 mg/dL Borderline high 150 - 199 mg/dL High 200 - 499 mg/dL Very High > or = 500 mg/dL WBC (Bld) [#/Vol] 6.1 10*3/uL 4.4-11.0 [facility] Bilirubin Test strip Ql (U)O rdered By: HEALTH ASSESSMENT on 02-04-2023 Bilirubin Ql (U) Negative Negative [facility] Blood erythrocytes count (nu mber/volume)Ordered By: HEALTH ASSESSMENT on 02-04-2023 RBC (Bld) [#/Vol] 4.28 10*6/uL 4.2-5.4 [facility] Blood hemoglobin measurement (mass/volume)Ordered By: HEALTH ASSESSMENT on 02-04-2023 Hemoglobin (Bld) [Mass/Vol] 13.6 g/dL 12.0-15.0 [facility] Blood platelet mean volumeOr dered By: HEALTH ASSESSMENT on 02-04-2023 Platelet mean volume (Bld) [Entitic vol] 11.6 fL 6.2-12.0 [facility] Determination of erythrocyte mean corpuscular volume (MCV)Ordered By: HEALTH ASSESSMENT on 02-04-2023 MCV (RBC) [Entitic vol] 98.1 fL 81-99 [facility] Direct bilirubinOrdered By: HEALTH ASSESSMENT on 02-04-2023 Bilirubin.direct [Mass/Vol] 0.13 mg/dL 0.00-0.30 [facility] Hematocrit Auto (Bld) [Volum e fraction]Ordered By: HEALTH ASSESSMENT on 02-04-2023 Hematocrit (Bld) [Volume fraction] 42.0 % 37-47 [facility] Ketones Test strip Ql (U)Ord ered By: HEALTH ASSESSMENT on 02-04-2023 Ketones Ql (U) Negative Negative [facility] - Chemistry and C hemistry - challengeOrdered By: HEALTH ASSESSMENT on 02-04-2023 ALP [Catalytic activity/Vol] 60 U/L 45-117 [facility] ALT [Catalytic activity/Vol] 23 U/L 13-56 [facility] Cholesterol.total/Earnestine sterol in HDL [Mass ratio] 2.40 {ratio} [facility] CO2 [Moles/Vol] 26.0 mmol/L 21.0-32.0 [facility] Globulin (S) [Mass/Vol] 4.3 g/dL 2.2-4.2 [facility] Urea nitrogen/Creatinine [Mass ratio] 18.9 mg/mg 10-20 [facility] - Hematology and Cell countsOrdered By: HEALTH ASSESSMENT on 02-04-2023 Erythrocyte distribution width (RBC) [Entitic vol] 48.2 fL 35.1-43.9 [facility] Erythrocyte distribution width (RBC) [Ratio] 13.3 % 11.6-14.6 [facility] MCH (RBC) [Entitic mass] 31.8 pg 27.0-32.0 [facility] Nucleated RBC/100 WBC (Bld) [Ratio] 0 % 0-5 [facility] MCHC Auto (RBC) [Mass/Vol]Or dered By: HEALTH ASSESSMENT on 02-04-2023 MCHC (RBC) [Mass/Vol] 32.4 g/dL 32-36 [facility] Nitrite Test strip Ql (U)Ord ered By: HEALTH ASSESSMENT on 02-04-2023 Nitrite Ql (U) Negative Negative [facility] No Panel InformationOrdered By: HEALTH ASSESSMENT on 02-04-2023 Estimated GFR (MDRD) Amer 89 mL/min >60 [facility] Comment on above: GFR Calc Estimated GFR (MDRD) Non-Af Amer 73 mL/min >60 [facility] Comment on above: Non- GFR Calc Platelets bldOrdered By: JONNY LT ASSESSMENT on 02-04-2023 Platelets (Bld) [#/Vol] 280 10*3/uL 150-450 [facility] Protein Test strip Ql (U)Ord ered By: HEALTH ASSESSMENT on 02-04-2023 Protein Ql (U) Negative Negative [facility] Segmented neutrophils/100 WB C Auto (Bld)Ordered By: HEALTH ASSESSMENT on 02-04-2023 Segmented neutrophils/100 WBC (Bld) 40.8 % 47-70 [facility] Serum or plasma albumin huey urement (mass/volume)Ordered By: HEALTH ASSESSMENT on 02-04-2023 Albumin [Mass/Vol] 3.7 g/dL 3.2-5.0 [facility] Serum or plasma albumin/glob ulin mass ratioOrdered By: HEALTH ASSESSMENT on 02-04-2023 Albumin/Globulin [Mass ratio] 0.9 {ratio} 0.9-2.4 [facility] Serum or plasma calcium huey urement (mass/volume)Ordered By: HEALTH ASSESSMENT on 02-04-2023 Calcium [Mass/Vol] 8.7 mg/dL 8.5-10.1 [facility] Serum or plasma cholesterol in HDL measurement (mass/volume)Ordered By: HEALTH ASSESSMENT on 02-04-2023 Cholesterol in HDL [Mass/Vol] 70 mg/dL >40 [facility] Comment on above: The drugs N-Acetylcy steine and Metamizole may falsely depress this assay. Reference Range HDL <40 mg/dL Low HDL Cholesterol HDL >or= 60 mg/dL High HDL Cholesterol Serum or plasma cholesterol in VLDL measurement (mass/volume)Ordered By: HEALTH ASSESSMENT on 02-04-2023 Cholesterol in VLDL [Mass/Vol] 15 mg/dL 5-40 [facility] Serum or plasma creatinine m easurement (mass/volume)Ordered By: HEALTH ASSESSMENT on 02-04-2023 Creatinine [Mass/Vol] 0.85 mg/dL 0.55-1.02 [facility] Comment on above: The validity of the calculated GFR & GFRAA in patients over 70 years has not been determined. Clinical correlation is essential. Serum or plasma low density lipoprotein (LDL) cholesterol measurement (mass/volume)Ordered By: HEALTH ASSESSMENT on 02-04-2023 Cholesterol in LDL [Mass/Vol] 84 mg/dL 0-130 [facility] Serum or plasma urea nitroge n measurement (mass/volume)Ordered By: HEALTH ASSESSMENT on 02-04-2023 Urea nitrogen [Mass/Vol] 16 mg/dL 7-18 [facility] Serum or plasma uric acid me asurement (mass/volume)Ordered By: HEALTH ASSESSMENT on 02-04-2023 Urate [Mass/Vol] 3.7 mg/dL 2.6-6.0 [facility] Comment on above: The drugs N-Acetylcy steine and Metamizole may falsely depress this assay. Thin prep Papanicolaou smear with manual screeningOrdered By: HEALTH ASSESSMENT on 02-04-2023 Thin prep Papanicolaou smear with manual screening 18 U/L 15-37 [facility] Thin prep Papanicolaou smear with manual screening 7 5-15 [facility] Urine blood detectionOrdered By: HEALTH ASSESSMENT on 02-04-2023 RBC Ql (U) 25 /ul Negative [facility] Urine clarityOrdered By: [facility] ASSESSMENT on 02-04-2023 Clarity (U) Clear Clear [facility] Urine color determinationOrd ered By: HEALTH ASSESSMENT on 02-04-2023 Color (U) Yellow Yellow [facility] Urine glucose detectionOrder ed By: HEALTH ASSESSMENT on 02-04-2023 Glucose Ql (U) Normal mg/dl Normal [facility] Urine leukocyte esterase det ection by dipstickOrdered By: HEALTH ASSESSMENT on 02-04-2023 Leukocyte esterase Test strip Ql (U) Negative Negative [facility] Urine pHOrdered By: HEALTH A SSESSMENT on 02-04-2023 pH (U) 6.5 [pH] 5.0 - 8.0 [facility] Urine specific gravity measu rementOrdered By: HEALTH ASSESSMENT on 02-04-2023 Specific gravity (U) [Rel density] 1.010 1.002-1.030 [facility] Urobilinogen Auto test strip Ql (U)Ordered By: HEALTH ASSESSMENT on 02-04-2023 Urobilinogen Ql (U) Normal mg/dl Normal [facility] No Panel InformationOrdered By: Teri Muller on 11-26-2022 Thyroid Stimulating Hormone (TSH) 1.28 uIU/mL 0.358-3.74 [facility] Basophil percentageOrdered B y: Teri Muller on 11-06-2022 Chloride [Moles/Vol] 105 mmol/L 98-107 [facility] Glucose [Mass/Vol] 85 mg/dL 74-106 [facility] Potassium [Moles/Vol] 3.9 mmol/L 3.5-5.1 [facility] Sodium [Moles/Vol] 138 mmol/L 136-145 [facility] Laboratory - Chemistry and C hemistry - challengeOrdered By: Teri Muller on 11-06-2022 CO2 [Moles/Vol] 28.0 mmol/L 21.0-32.0 [facility] Urea nitrogen/Creatinine [Mass ratio] 22.7 mg/mg 10-20 [facility] No Panel InformationOrdered By: Teri Muller on 11-06-2022 Estimated GFR (MDRD) Amer 90 mL/min >60 [facility] Comment on above: GFR Calc Estimated GFR (MDRD) Non-Af Amer 74 mL/min >60 [facility] Comment on above: Non- GFR Calc Thyroid Stimulating Hormone (TSH) 5.46 uIU/mL 0.358-3.74 [facility] Vitamin D 25-Hydroxy 38.4 ng/mL [facility] Comment on above: Vitamin D 25(OH) Sta tus Range Deficiency <20 ng/mL (50nmol/L) Insufficiency 20 - 30 ng/mL (50 - 75 nmol/L) Sufficiency 30 - 100 ng/mL (75 - 250 nmol/L) Toxicity >100 ng/mL (>250 nmol/L) Serum or plasma calcium huey urement (mass/volume)Ordered By: Teri Muller on 11-06-2022 Calcium [Mass/Vol] 8.9 mg/dL 8.5-10.1 [facility] Serum or plasma creatinine m easurement (mass/volume)Ordered By: Teri Muller on 11-06-2022 Creatinine [Mass/Vol] 0.84 mg/dL 0.55-1.02 [facility] Comment on above: The validity of the calculated GFR & GFRAA in patients over 70 years has not been determined. Clinical correlation is essential. Serum or plasma urea nitroge n measurement (mass/volume)Ordered By: Teri Mluler on 11-06-2022 Urea nitrogen [Mass/Vol] 19 mg/dL 7-18 [facility] Thin prep Papanicolaou smear with manual screeningOrdered By: Teri Muller on 11-06-2022 Thin prep Papanicolaou smear with manual screening 5 5-15 [facility] Cervical or vagninal specime n microscopic examination by cytology stain (reported asOrdered By: Mindy Glover on 10-30-2022 Cytology report Cyto stain Doc (Cvx/Vag) Comment . [facility] Comment on above: The Pap smear is a s creening test designed to aid in thedetection of premalignant and malignant conditions of theuterine cervix. It is not a diagnostic procedure andshould not be used as the sole means of detecting cervicalcancer. Both false-positive and false-negative reports dooccur. Detection in cervical specim en of any of human papilloma virus (HPV) 16, 18, 31, 33,Ordered By: Mindy Glover on 10-30-2022 HPV 16+18+31+33+35+39+45+51 +52+56+58+59+66+68 DNA Probe+sig amp Ql (Cvx) Negative Negative [facility] Comment on above: This nucleic acid am plification test detects fourteen high-risk HPV types (16,18,31,33,35,39,45,51,52,56,58,59,66,68)without differentiation. Laboratory - CytologyOrdered By: Mindy Glover on 10-30-2022 [employer] Worker Cyto stain Nom (Cvx/Vag) [ID] Comment . [facility] Comment on above: Marcella Cyr, Cyto technologist (ASCP) Laboratory - Miscellaneous t estsOrdered By: Mindy Glover on 10-30-2022 Service comment (Unsp spec) [Interp] Comment . [facility] Comment on above: This liquid based Th inPrep(R) pap test was screened withthe use of an image guided system. Service comment (Unsp spec) [Interp] . . [facility] Liquid-based cerv Pap + CT/G C by ANAND w reflex to high-risk HPV for ASCUSOrdered By: Mindy Glover on 10-30-2022 Cytology report Cyto stain.thin prep Doc (Cvx/Vag) Comment . [facility] Comment on above: Criteria not met, HP V Genotype not performed.Performed at: WB - [facility] [address] [id number] Director: Velma Wilde MD, Phone: [phone] at: =G - [facility] [address], [place] [id number] Director: Velma Wilde MD, Phone: [phone] No Panel InformationOrdered By: Mindy Glover on 10-30-2022 Pathology report final diagnosis Narrative Comment . [facility] Comment on above: NEGATIVE FOR INTRAEP ITHELIAL LESION OR MALIGNANCY. Laboratory - Chemistry and C hemistry - challengeOrdered By: Dr. Kaur on 08-21-2022 Free T4 [Mass/Vol] 0.89 ng/dL 0.76-1.46 [facility] No Panel InformationOrdered By: Dr. Kaur on 08-21-2022 Thyroid Stimulating Hormone (TSH) 5.04 uIU/mL 0.358-3.74 [facility] Absolute lymphocyte counton 02-06-2022 Lymphocytes Auto (Unsp spec) [#/Vol] 2.58 10*3/uL 0.83-4.51 [facility] Work Phone: Absolute reticulocyte counto n 02-06-2022 Reticulocytes (Bld) [#/Vol] 0.00 10*3/uL 0-5 [facility] Work Phone: Basophil percentageon 2021 Basophil percentage 3.0 mg/dL 2.5-4.9 [facility] Work Phone: Bilirubin [Mass/Vol] 0.20 mg/dL 0.20-1.00 [facility] Work Phone: Comment on above: For patients on eltr ombopag therapy, use of Dimension Mcfall TBIL is not recommended. Chloride [Moles/Vol] 108 mmol/L 98-107 [facility] Work Phone: Cholesterol [Mass/Vol] 144 mg/dL <200 [facility] Work Phone: Comment on above: <200 mg/dL Desirable 200-240 mg/dL Borderline >240 mg/dL High Risk Glucose [Mass/Vol] 94 mg/dL 74-106 [facility] Work Phone: Neutrophils (Bld) [#/Vol] 2.6 10*3/uL 2.0-7.7 [facility] Work Phone: Potassium [Moles/Vol] 4.4 mmol/L 3.5-5.1 [facility] Work Phone: Protein [Mass/Vol] 8.1 g/dL 6.4-8.2 [facility] Work Phone: Sodium [Moles/Vol] 139 mmol/L 136-145 [facility] Work Phone: Triglyceride [Mass/Vol] 86 mg/dL <199 [facility] Work Phone: Comment on above: The drugs N-Acetylcy steine and Metamizole may falsely depress this assay.Serum Triglycerides Reference Interval Normal <150 mg/dL Borderline high 150 - 199 mg/dL High 200 - 499 mg/dL Very High > or = 500 mg/dL WBC (Bld) [#/Vol] 6.0 10*3/uL 4.4-11.0 [facility] Work Phone: Bilirubin Test strip Ql (U)o n 02-06-2022 Bilirubin Ql (U) Negative Negative [facility] Work Phone: Blood erythrocytes count (nu mber/volume)on 02-06-2022 RBC (Bld) [#/Vol] 4.20 10*6/uL 4.2-5.4 [facility] Work Phone: Blood hemoglobin measurement (mass/volume)on 02-06-2022 Hemoglobin (Bld) [Mass/Vol] 13.9 g/dL 12.0-15.0 [facility] Work Phone: Blood platelet mean volumeon 02-06-2022 Platelet mean volume (Bld) [Entitic vol] 11.9 fL 6.2-12.0 [facility] Work Phone: Determination of erythrocyte mean corpuscular volume (MCV)on 02-06-2022 MCV (RBC) [Entitic vol] 96.2 fL 81-99 [facility] Work Phone: Direct bilirubinon Bilirubin.direct [Mass/Vol] 0.09 mg/dL 0.00-0.30 [facility] Work Phone: Hematocrit Auto (Bld) [Volum e fraction]on 02-06-2022 Hematocrit (Bld) [Volume fraction] 40.4 % 37-47 [facility] Work Phone: Ketones Test strip Ql (U)on 02-06-2022 Ketones Ql (U) Negative Negative [facility] Work Phone: Laboratory - Chemistry and C hemistry - challengeon 02-06-2022 ALP [Catalytic activity/Vol] 60 U/L 45-117 [facility] Work Phone: ALT [Catalytic activity/Vol] 30 U/L 13-56 [facility] Work Phone: Cholesterol.total/Earnestine sterol in HDL [Mass ratio] 2.10 {ratio} [facility] Work Phone: CO2 [Moles/Vol] 27.0 mmol/L 21.0-32.0 [facility] Work Phone: Free T4 [Mass/Vol] 1.04 ng/dL 0.76-1.46 [facility] Work Phone: Globulin (S) [Mass/Vol] 4.2 g/dL 2.2-4.2 [facility] Work Phone: Urea nitrogen/Creatinine [Mass ratio] 12.5 mg/mg 10-20 [facility] Work Phone: Laboratory - Hematology and Cell countson 02-06-2022 Erythrocyte distribution width (RBC) [Entitic vol] 48.7 fL 35.1-43.9 [facility] Work Phone: Erythrocyte distribution width (RBC) [Ratio] 13.7 % 11.6-14.6 [facility] Work Phone: MCH (RBC) [Entitic mass] 33.1 pg 27.0-32.0 [facility] Work Phone: Nucleated RBC/100 WBC (Bld) [Ratio] 0 % 0-5 [facility] Work Phone: MCHC Auto (RBC) [Mass/Vol]on 02-06-2022 MCHC (RBC) [Mass/Vol] 34.4 g/dL 32-36 [facility] Work Phone: Nitrite Test strip Ql (U)on 02-06-2022 Nitrite Ql (U) Negative Negative [facility] Work Phone: No Panel Informationon 02-06 Estimated GFR (MDRD) Amer 85 mL/min >60 [facility] Work Phone: Comment on above: GFR Calc Estimated GFR (MDRD) Non-Af Amer 70 mL/min >60 [facility] Work Phone: Comment on above: Non- GFR Calc Thyroid Stimulating Hormone (TSH) 9.86 uIU/mL 0.358-3.74 [facility] Work Phone: Platelets bldon 02-06-2022 Platelets (Bld) [#/Vol] 290 10*3/uL 150-450 [facility] Work Phone: Protein Test strip Ql (U)on 02-06-2022 Protein Ql (U) Negative Negative [facility] Work Phone: Segmented neutrophils/100 WB C Auto (Bld)on 02-06-2022 Segmented neutrophils/100 WBC (Bld) 42.8 % 47-70 [facility] Work Phone: Serum or plasma albumin huey urement (mass/volume)on 02-06-2022 Albumin [Mass/Vol] 3.9 g/dL 3.2-5.0 [facility] Work Phone: Serum or plasma albumin/glob ulin mass ratioon 02-06-2022 Albumin/Globulin [Mass ratio] 0.9 {ratio} 0.9-2.4 [facility] Work Phone: Serum or plasma calcium huey urement (mass/volume)on 02-06-2022 Calcium [Mass/Vol] 8.6 mg/dL 8.5-10.1 [facility] Work Phone: Serum or plasma cholesterol in HDL measurement (mass/volume)on 02-06-2022 Cholesterol in HDL [Mass/Vol] 68 mg/dL >40 [facility] Work Phone: Comment on above: The drugs N-Acetylcy steine and Metamizole may falsely depress this assay. Reference Range HDL <40 mg/dL Low HDL Cholesterol HDL >or= 60 mg/dL High HDL Cholesterol Serum or plasma cholesterol in VLDL measurement (mass/volume)on 02-06-2022 Cholesterol in VLDL [Mass/Vol] 17 mg/dL 5-40 [facility] Work Phone: Serum or plasma creatinine m easurement (mass/volume)on 02-06-2022 Creatinine [Mass/Vol] 0.88 mg/dL 0.55-1.02 [facility] Work Phone: Comment on above: The validity of the calculated GFR & GFRAA in patients over 70 years has not been determined. Clinical correlation is essential. Serum or plasma low density lipoprotein (LDL) cholesterol measurement (mass/volume)on 02-06-2022 Cholesterol in LDL [Mass/Vol] 59 mg/dL 0-130 [facility] Work Phone: Serum or plasma urea nitroge n measurement (mass/volume)on 02-06-2022 Urea nitrogen [Mass/Vol] 11 mg/dL 7-18 [facility] Work Phone: Serum or plasma uric acid me asurement (mass/volume)on 02-06-2022 Urate [Mass/Vol] 3.3 mg/dL 2.6-6.0 [facility] Work Phone: Comment on above: The drugs N-Acetylcy steine and Metamizole may falsely depress this assay. Thin prep Papanicolaou smear with manual screeningon 02-06-2022 Thin prep Papanicolaou smear with manual screening 23 U/L 15-37 [facility] Work Phone: Thin prep Papanicolaou smear with manual screening 4 5-15 [facility] Work Phone: Thin prep Papanicolaou smear with manual screening 194 U/L 84-246 [facility] Work Phone: Urine blood detectionon 01-19 RBC Ql (U) 10 /ul Negative [facility] Work Phone: Urine clarityon 02-06-2022 Clarity (U) Clear Clear [facility] Work Phone: Urine color determinationon 02-06-2022 Color (U) Yellow Yellow [facility] Work Phone: Urine glucose detectionon Glucose Ql (U) Normal mg/dl Normal [facility] Work Phone: Urine leukocyte esterase det ection by dipstickon 02-06-2022 Leukocyte esterase Test strip Ql (U) Negative Negative [facility] Work Phone: Urine pHon 02-06-2022 pH (U) 7.0 [pH] 5.0 - 8.0 [facility] Work Phone: Urine specific gravity measu rementon 02-06-2022 Specific gravity (U) [Rel density] 1.010 1.002-1.030 [facility] Work Phone: Urobilinogen Auto test strip Ql (U)on 02-06-2022 Urobilinogen Ql (U) Normal mg/dl Normal [facility] Work Phone: CBC + DIFFon 01-02-2019 Other FEW LARGE PLATELETS Normal [facility] Comment on above: Performed By: #### 2 [id number] #### [facility],[address] [place] [address] 77505 Basophils (Bld) [#/Vol] 0.00 x10EE3/UL Normal 0.00 - 0 .10 [facility] Comment on above: Performed By: #### 2 01206 #### [facility],[address] [place] [address] 18045 Basophils/100 WBC (Bld) 0.2 % Normal 0.0 - 2.0 [facility] Comment on above: Performed By: #### 2 92418 #### [facility],[address] [place] [address] 75712 CBC + DIFF Normal [facility] Comment on above: Result Comment: CBC- COMPLETE BLOOD COUNT Performed By: #### 2 43906 #### [facility],[address] [place] [address] 91622 Eosinophils (Bld) [#/Vol] 0.10 x10EE3/UL Normal 0.00 - 0.50 [facility] Comment on above: Performed By: #### 2 87470 #### [facility],[address] [place] [address] 78751 Eosinophils/100 WBC (Bld) 1.4 % Normal 0.0 - 7.0 [facility] Comment on above: Performed By: #### 2 31998 #### [facility],[address] [place], [place] [id number] Erythrocyte distribution width (RBC) [Ratio] 13.2 % Normal 12.0 - 15.6 [facility] Comment on above: Performed By: #### 2 90543 #### [facility],[address] [place] [address] 43558 Hematocrit (Bld) [Volume fraction] 38.6 % Normal 34.0 - 46.0 [facility] Comment on above: Performed By: #### 2 19591 #### [facility],[address] [place] [address] 17620 Hemoglobin (Bld) [Mass/Vol] 13.2 g/dL Normal 12.0 - 16.0 [facility] Comment on above: Performed By: #### 2 24687 #### [facility],[address] [place] [address] 47244 Lymphocytes (Bld) [#/Vol] 2.70 x10EE3/UL Normal 0.80 - 2.80 [facility] Comment on above: Performed By: #### 2 75421 #### [facility],[address] [place] [address] 19831 Lymphocytes/100 WBC (Bld) 52.7 % High 20.0 - 45.0 [facility] Comment on above: Performed By: #### 2 12098 #### [facility],[address] [place] [address] 14473 MANUAL DIFF REVIEWED Normal [facility] Comment on above: Performed By: #### 2 37664 #### [facility],[address] [place] [address] 84724 MCH (RBC) [Entitic mass] 33 pg Normal 27 - 33 [facility] Comment on above: Performed By: #### 2 79561 #### [facility],[address] [place] [address] 98096 MCHC (RBC) [Mass/Vol] 34 X10 3 Normal 32 - 36 [facility] Comment on above: Performed By: #### 2 90591 #### [facility],[address] [place] [address] 29603 MCV (RBC) [Entitic vol] 96 fL Normal 80 - 99 [facility] Comment on above: Performed By: #### 2 16245 #### [address] [address] Monocytes (Bld) [#/Vol] 0.50 x10EE3/UL Normal 0.20 - 1 .00 [facility] Comment on above: Performed By: #### 2 43066 #### [facility],[address] [place] [address] 46366 MONOS % 9.6 % Normal 0.0 - 10.0 [facility] Comment on above: Performed By: #### 2 57653 #### [facility],[address] [place] [address] 48748 Morphology Murtaza (Bld) [Interp] SEE BELOW Normal [facility] Comment on above: Performed By: #### 2 04675 #### [facility],[address] [place] [address] 99118 Neutrophils (Bld) [#/Vol] 1.80 x10EE3/UL Normal 1.50 - 7.10 [facility] Comment on above: Performed By: #### 2 29445 #### [facility],[address] [place] [address] 60219 Neutrophils/100 WBC (Bld) 36.1 % Low 46.0 - 76.0 [facility] Comment on above: Performed By: #### 2 24541 #### [facility],[address] [place] [address] 43839 Platelet mean volume (Bld) [Entitic vol] 9.6 fL Normal 6.6 - 10.[address] [facility] Comment on above: Result Comment: AUTO MATED DIFFERENTIAL Performed By: #### 2 10342 #### [facility],[address] [place] [address] 43551 Platelets (Bld) [#/Vol] NORMAL Normal [facility] Comment on above: Performed By: #### 2 45931 #### [facility],[address] [place] [address] 65278 Platelets (Bld) [#/Vol] 230 x10EE3/UL Normal 150 - 450 [facility] Comment on above: Performed By: #### 2 97017 #### [facility],[address] [place] [address] 88885 RBC (Bld) [#/Vol] 4.01 x 10EE6/UL Low 4.10 - 5.30 [facility] Comment on above: Performed By: #### 2 26847 #### [facility],[address] [place] [address] 86568 WBC (Bld) [#/Vol] 5.1 x 10EE3/UL Normal 4.5 - 10.8 [facility] Comment on above: Performed By: #### 2 45414 #### [facility],[address] [place] [address] 45037 CMP with eGFRon 01-02-2019 Age - Reported 53 years Normal [facility] Comment on above: Performed By: #### 2 85010 #### [facility],[address] [place] [address] 21613 Albumin [Mass/Vol] 4.2 g/dL Normal 3.4 - 4.8 [facility] Comment on above: Performed By: #### 2 42790 #### [facility],[address] [place], [place] [address] Albumin/Globulin [Mass ratio] 1.4 {ratio} Normal 0.9 - 1.6 [facility] Comment on above: Performed By: #### 2 93941 #### [facility],[address] [place] [address] 50546 ALK PHOS 40 U/L Normal 38 - 126 [facility] Comment on above: Performed By: #### 2 76337 #### [facility],[address] [place] [address] 55200 ALT/SGPT 9 U/L Normal 8 - 35 [facility] Comment on above: Performed By: #### 2 31159 #### [facility],[address] [place] [address] 94450 Anion gap [Moles/Vol] 10 mmol/L Normal 10 - 20 [facility] Comment on above: Performed By: #### 2 13509 #### [facility],[address] [place] [address] 09492 AST/SGOT 13 U/L Normal 13 - 39 [facility] Comment on above: Performed By: #### 2 55019 #### [facility],[address] [place] [address] 68222 B/C RATIO 18 ratio Normal 0 - 30 [facility] Comment on above: Performed By: #### 2 63279 #### [facility],[address] [place] [address] 01734 Bilirubin [Mass/Vol] 0.5 mg/dL Normal 0.0 - 1.5 [facility] Comment on above: Performed By: #### 2 68783 #### [facility],[address] [place] [address] 19745 Calcium [Mass/Vol] 9.2 mg/dL Normal 8.6 - 10.2 [facility] Comment on above: Performed By: #### 2 26485 #### [facility],[address] [place] [address] 15190 Chloride [Moles/Vol] 104 mmol/L Normal 98 - 107 [facility] Comment on above: Performed By: #### 2 85891 #### [facility],[address] [place] [address] 57792 CO2 [Moles/Vol] 29.1 mmol/L Normal 21.0 - 31.0 [facility] Comment on above: Performed By: #### 2 93186 #### [facility],[address] [place] [address] 58771 Creatinine [Mass/Vol] 0.8 mg/dL Normal 0.6 - 1.2 [facility] Comment on above: Performed By: #### 2 24867 #### [facility],[address] [place] [address] 83645 GFR/1.73 sq M predicted among non-blacks MDRD (S/P/Bld) [Vol rate/Area] mL/min/{1.73_m2} Normal 60 - 999 [facility] Comment on above: Performed By: #### 2 40486 #### [facility],[address] [place] [address] 25160 Result Comment: ACCO RDING TO THE NATIONAL KIDNEY DISEASE EDUCATION PROGRAM(NKDE), A NORMAL eGFR IS A VALUE GREATER THAN OR EQUAL TO 60 ML/MIN/1.73 SQ METERS. CHRONIC KIDNEY DISEASE: <60mL/MIN/1.73 SQ METERS KIDNEY FAILURE: <15mL/MIN/1.73 SQ METERS THIS TEST SHOULD ONLY BE USED FOR PATIENTS 18 YEARS OF AGE AND OLDER. GFR/1.73 sq M predicted among non-blacks MDRD (S/P/Bld) [Vol rate/Area] Normal [facility] Comment on above: Result Comment: COMP REHENSIVE METABOLIC PANEL Performed By: #### 2 73592 #### [facility],[address] [place] [address] 52718 Globulin (S) [Mass/Vol] 2.9 g/dL Normal 1.5 - 3.8 [facility] Comment on above: Performed By: #### 2 24963 #### [facility],[address] [place] [address] 85166 Glucose [Mass/Vol] 94 mg/dL Normal 74 - 106 [facility] Comment on above: Performed By: #### 2 97527 #### [facility],[address] [place] [address] 36586 Potassium [Moles/Vol] 3.9 mmol/L Normal 3.5 - 5.1 [facility] Comment on above: Performed By: #### 2 30617 #### [facility],[address] [place] [address] 73749 Protein [Mass/Vol] 7.1 g/dL Normal 6.4 - 8.3 [facility] Comment on above: Performed By: #### 2 40782 #### [facility],[address] [place] [address] 91273 Sodium [Moles/Vol] 139 mmol/L Normal 136 - 145 [facility] [facility] Comment on above: Performed By: #### 2 [id number] #### [facility],[address] [place] [address] 09787 Urea nitrogen [Mass/Vol] 14 mg/dL Normal 6 - 20 [facility] Comment on above: Performed By: #### 2 [id number] #### [facility],[address] [place] [address]8030 LIPID PROFILEon 01-02-2019 Cholesterol [Mass/Vol] 157 mg/dL Normal 0 - 200 [facility] Comment on above: Performed By: #### 2 [id number] #### [facility],[address] [place] [address] 20262 Cholesterol in HDL [Mass/Vol] 51 mg/dL Normal 40 - 60 [facility] Comment on above: Performed By: #### 2 [id number] #### [facility],[address] [place] [address] 55708 Cholesterol in LDL [Mass/Vol] 84 mg/dL Normal 0 - 129 [facility] Comment on above: Performed By: #### 2 [id number] #### [facility],[address] [place] [address] 68753 Cholesterol.total/Earnestnie sterol in HDL [Mass ratio] 3.1 {ratio} Normal 0.0 - 5.0 [facility] Comment on above: Performed By: #### 2 [id number] #### [facility],[address] [place] [address] 54270 Lipid 1996 panel Normal [facility] Comment on above: Result Comment: LIPI D PROFILE Performed By: #### 2 [id number] #### [facility],[address] [place] [address] 52358 Triglyceride [Mass/Vol] 109 mg/dL Normal 0 - 150 [facility] Comment on above: Performed By: #### 2 [id number] #### [facility],[address] [place] [address] 83544 TSHon 01-02-2019 TSH Qn 1.59 uIU/ml Normal 0.34 - 5.[address] [facility] Comment on above: Performed By: #### 2 [id number] #### [facility],[address] [place] [address] 26510 Rapid Flu (57763 x 2)Ordered By: Ginny Almendarez on 05-25-2014 FLUAV Ag IA Ql (Throat) Negative Normal [facility] Work Phone: VI CULTURE-OTHER ([id number])Ord ered By: [employer] on 03-21-2010 Bacteria identified Respiratory culture Nom (Unsp spec) RRF Normal [facility] Work Phone: Comment on above: Routine respiratory clint PATIENT NOT FASTINGP ERFORMED BY: JOSEFINA [employer] [facility] [id number] Information: SRC:RENITA [id number] Bacteria identified Respiratory culture Nom (Unsp spec) Final report Normal [facility] Work Phone: Comment on above: PATIENT NOT FASTINGP ERFORMED BY: JOSEFINA [email or web address] [id number] [place] [address] [id number] Information: SRC:RENITA [id number] VI CULTURE-OTHER ([id number])Ord ered By: Kate Raymundo on 03-23-2009 Bacteria identified Respiratory culture Nom (Unsp spec) Final report Normal [facility] Work Phone: Comment on above: PATIENT NOT FASTINGC linical Information: SRC:RENITA [id number] PERFORMED BY: JOSEFINA [email or web address] [id number] [place] [address] [id number] Bacteria identified Respiratory culture Nom (Unsp spec) RRF Normal [facility] Work Phone: Comment on above: Routine respiratory clint PATIENT NOT FASTINGC linical Information: SRC:RENITA [id number] PERFORMED BY: JOSEFINA [email or web address] [id number] [facility] [id number] Rapid Flu (64772 x 2)on FLUAV Ag IA Ql (Throat) Negative Normal [facility] Work Phone: Rapid Strep Test, Office ([phone])on 03-22-2009 S. pyogenes Ag IA Ql (Unsp spec) Negative Normal [facility] Work Phone: Comment on above: aw Urinalysis, Office ([id number])Or dered By: Shannan Vásquez on 06-18-2006 Bilirubin Ql (U) Negative Normal [facility] Work Phone: Glucose Test strip (U) [Mass/Vol] Negative Normal [facility] Work Phone: Hemoglobin Ql (U) Hemolyzed Large Normal [facility] Work Phone: Ketones Ql (U) Negative Normal [facility] Work Phone: Leukocyte esterase Test strip Ql (U) Large Normal [facility] Work Phone: Nitrite Ql (U) Negative Normal [facility] Work Phone: pH (U) 5.0 [pH] Normal [facility] Work Phone: Protein Ql (U) Negative Normal [facility] Work Phone: Specific gravity (U) [Rel density] 1.025 1 Normal [facility] Work Phone: Urobilinogen (24H U) [Mass/Time] Normal Normal [facility] Work Phone: Vital Signs Date Time Vital Sign Value Performing Clinician Facility 01-21-2025 10:24-0400 Body temperature 97.3 [degF] Dr. Ya Garibay DO Work Phone: [facility] 01-21-2025 10:24-0400 Diastolic blood pressure 60 mm[Hg] Dr. Ya Garibay DO Work Phone: [facility] 01-21-2025 10:24-0400 Heart rate 73 /min Dr. Ya Garibay DO Work Phone: [facility] 01-21-2025 10:24-0400 Respiratory rate 15 /min Dr. Ya Garibay DO Work Phone: [facility] 01-21-2025 10:24-0400 SaO2% (BldA) [Mass fraction] 96 % Dr. Ya Garibay DO Work Phone: [facility] 01-21-2025 10:24-0400 Systolic blood pressure 118 mm[Hg] Dr. Ya Garibay DO Work Phone: [facility] 02-12-2023 12:54-0400 Body height 162.[address] Teri Muller Work Phone: [facility] 02-12-2023 12:54-0400 Body mass index (BMI) [Ratio] 24.3 kg/m2 Dr. Teri Muller Work Phone: [facility] 02-12-2023 12:54-0400 Body temperature 97.7 [degF] Dr. Teri Muller Work Phone: [facility] 02-12-2023 12:54-0400 Body weight 64.[address] Teri Muller Work Phone: [facility] 02-12-2023 12:54-0400 Diastolic blood pressure 78 mm[Hg] Dr. Teri Muller Work Phone: [facility] 02-12-2023 12:54-0400 Heart rate 78 /min Dr. Teri Muller Work Phone: [facility] 02-12-2023 12:54-0400 Respiratory rate 16 /min Dr. Teri Muller Work Phone: [facility] 02-12-2023 12:54-0400 SaO2% (BldA) [Mass fraction] 98 % Dr. Teri Muller Work Phone: [facility] 02-12-2023 12:54-0400 Systolic blood pressure 118 mm[Hg] Dr. Teri Muller Work Phone: [facility] 11-06-2022 15:19-0400 Body height 162.[address] Teri Muller Work Phone: [facility] 11-06-2022 15:19-0400 Body mass index (BMI) [Ratio] 24 kg/m2 Dr. Teri Muller Work Phone: [facility] 11-06-2022 15:19-0400 Body temperature 98 [degF] Dr. Teri Muller Work Phone: [facility] 11-06-2022 15:19-0400 Body weight 63.[address] Teri Muller Work Phone: [facility] 11-06-2022 15:19-0400 Diastolic blood pressure 74 mm[Hg] Dr. Teri Muller Work Phone: [facility] 11-06-2022 15:19-0400 Heart rate 88 /min Dr. Teri Muller Work Phone: [facility] 11-06-2022 15:19-0400 Respiratory rate 14 /min Dr. Teri Muller Work Phone: [facility] 11-06-2022 15:19-0400 SaO2% (BldA) [Mass fraction] 98 % Dr. Teri Muller Work Phone: [facility] 11-06-2022 15:19-0400 Systolic blood pressure 126 mm[Hg] Dr. Teri Muller Work Phone: [facility] 10-30-2022 15:27-0400 Body height 162.[address] Teri Muller Work Phone: [facility] 10-30-2022 15:27-0400 Body mass index (BMI) [Ratio] 23.8 kg/m2 Dr. Teri Muller Work Phone: [facility] 10-30-2022 15:27-0400 Body weight 63.[address] Teri Muller Work Phone: [facility] 10-30-2022 15:27-0400 Diastolic blood pressure 65 mm[Hg] Dr. Teri Muller Work Phone: [facility] 10-30-2022 15:27-0400 Systolic blood pressure 100 mm[Hg] Dr. Teri Muller Work Phone: [facility] 08-21-2022 15:10-0400 Body height 162.[address] Teri Muller Work Phone: [facility] 08-21-2022 15:10-0400 Body mass index (BMI) [Ratio] 24.2 kg/m2 Dr. Teri Muller Work Phone: [facility] 08-21-2022 15:10-0400 Body temperature 96.7 [degF] Dr. Teri Muller Work Phone: [facility] 08-21-2022 15:10-0400 Body weight 64.[address] Teri Muller Work Phone: [facility] 08-21-2022 15:10-0400 Diastolic blood pressure 76 mm[Hg] Dr. Teri Muller Work Phone: [facility] 08-21-2022 15:10-0400 Heart rate 64 /min Dr. Teri Muller Work Phone: [facility] 08-21-2022 15:10-0400 Respiratory rate 18 /min Dr. Teri Muller Work Phone: [facility] 08-21-2022 15:10-0400 SaO2% (BldA) [Mass fraction] 99 % Dr. Teri Muller Work Phone: [facility] 08-21-2022 15:10-0400 Systolic blood pressure 106 mm[Hg] Dr. Teri Muller Work Phone: [facility] 07-31-2022 07:23-0400 Diastolic blood pressure 74 mm[Hg] Dr. Teri Muller Work Phone: [facility] 07-31-2022 07:23-0400 Systolic blood pressure 136 mm[Hg] Dr. Teri Muller Work Phone: [facility] 07-31-2022 07:13-0400 Body temperature 98.6 [degF] Dr. Teri Muller Work Phone: [facility] 07-31-2022 07:13-0400 Heart rate 120 /min Dr. Teri Muller Work Phone: [facility] 07-31-2022 07:13-0400 Respiratory rate 12 /min Dr. Teri Muller Work Phone: [facility] 07-31-2022 07:13-0400 SaO2% (BldA) [Mass fraction] 97 % Dr. Teri Muller Work Phone: [facility] 06-11-2022 15:41-0500 Body temperature 98 [degF] Dr. Teri Muller Work Phone: [facility] 06-11-2022 15:41-0500 Diastolic blood pressure 92 mm[Hg] Dr. Teri Muller Work Phone: [facility] 06-11-2022 15:41-0500 Heart rate 90 /min Dr. Teri Muller Work Phone: [facility] 06-11-2022 15:41-0500 Respiratory rate 18 /min Dr. Teri Muller Work Phone: [facility] 06-11-2022 15:41-0500 SaO2% (BldA) [Mass fraction] 95 % Dr. Teri Muller Work Phone: [facility] 06-11-2022 15:41-0500 Systolic blood pressure 142 mm[Hg] Dr. Teri Muller Work Phone: [facility] 04-23-2022 16:22-0500 Body temperature 97.4 [degF] Dr. Teri Muller Work Phone: [facility] Work Phone: 04-23-2022 16:22-0500 Diastolic blood pressure 82 mm[Hg] Dr. Teri Muller Work Phone: [facility] Work Phone: 04-23-2022 16:22-0500 Heart rate 84 /min Dr. Teri Muller Work Phone: [facility] Work Phone: 04-23-2022 16:22-0500 Respiratory rate 16 /min Dr. Teri Muller Work Phone: [facility] Work Phone: 04-23-2022 16:22-0500 SaO2% (BldA) [Mass fraction] 97 % Dr. Teri Muller Work Phone: [facility] Work Phone: 04-23-2022 16:22-0500 Systolic blood pressure 130 mm[Hg] Dr. Teri Muller Work Phone: [facility] Work Phone: 04-18-2022 06:25-0500 Body height 162.[address] Teri Muller Work Phone: [facility] Work Phone: 04-18-2022 06:25-0500 Body mass index (BMI) [Ratio] 25.7 kg/m2 Dr. Teri Muller Work Phone: [facility] Work Phone: 04-18-2022 06:25-0500 Body temperature 97.2 [degF] Dr. Teri Muller Work Phone: [facility] Work Phone: 04-18-2022 06:25-0500 Body weight 68.[address] Teri Muller Work Phone: [facility] Work Phone: 04-18-2022 06:25-0500 Diastolic blood pressure 85 mm[Hg] Dr. Teri Muller Work Phone: [facility] Work Phone: 04-18-2022 06:25-0500 Heart rate 81 /min Dr. Teri Muller Work Phone: [facility] Work Phone: 04-18-2022 06:25-0500 Respiratory rate 18 /min Dr. Teri Muller Work Phone: [facility] Work Phone: 04-18-2022 06:25-0500 SaO2% (BldA) [Mass fraction] 99 % Dr. Teri Muller Work Phone: [facility] Work Phone: 04-18-2022 06:25-0500 Systolic blood pressure 150 mm[Hg] Dr. Teri Muller Work Phone: [facility] Work Phone: 02-28-2022 15:20-0500 Body height 162.[address] Teri Muller Work Phone: [facility] Work Phone: 02-28-2022 15:20-0500 Body mass index (BMI) [Ratio] 25.7 kg/m2 Dr. Teri Muller Work Phone: [facility] Work Phone: 02-28-2022 15:20-0500 Body temperature 96.5 [degF] Dr. Teri Muller Work Phone: [facility] Work Phone: 02-28-2022 15:20-0500 Body weight 68.[address] Teri Muller Work Phone: [facility] Work Phone: 02-28-2022 15:20-0500 Diastolic blood pressure 57 mm[Hg] Dr. Teri Muller Work Phone: [facility] Work Phone: 02-28-2022 15:20-0500 Heart rate 76 /min Dr. Teri Muller Work Phone: [facility] Work Phone: 02-28-2022 15:20-0500 Respiratory rate 18 /min Dr. Teri Muller Work Phone: [facility] Work Phone: 02-28-2022 15:20-0500 SaO2% (BldA) [Mass fraction] 98 % Dr. Teri Muller Work Phone: [facility] Work Phone: 02-28-2022 15:20-0500 Systolic blood pressure 118 mm[Hg] Dr. Teri Muller Work Phone: [facility] Work Phone: 02-06-2022 09:00-0400 Body height 162.[address] Teri Muller Work Phone: [facility] Work Phone: 02-06-2022 09:00-0400 Body mass index (BMI) [Ratio] 25.2 kg/m2 Dr. Teri Muller Work Phone: [facility] Work Phone: 02-06-2022 09:00-0400 Body temperature 96.1 [degF] Dr. Teri Muller Work Phone: [facility] Work Phone: 02-06-2022 09:00-0400 Body weight 66.[address] Teri Muller Work Phone: [facility] Work Phone: 02-06-2022 09:00-0400 Diastolic blood pressure 82 mm[Hg] Dr. Teri Muller Work Phone: [facility] Work Phone: 02-06-2022 09:00-0400 Heart rate 73 /min Dr. Teri Muller Work Phone: [facility] Work Phone: 02-06-2022 09:00-0400 Respiratory rate 16 /min Dr. Teri Muller Work Phone: [facility] Work Phone: 02-06-2022 09:00-0400 SaO2% (BldA) [Mass fraction] 97 % Dr. Teri Muller Work Phone: [facility] Work Phone: 02-06-2022 09:00-0400 Systolic blood pressure 120 mm[Hg] Dr. Teri Muller Work Phone: [facility] Work Phone: 05-12-2015 14:58-0500 BMI (Body Mass Index) 23.13 kg/m2 Ya Garibay [facility] Work Phone: 05-12-2015 14:58-0500 Body weight 63.05 kg Ya Garibay [facility] Work Phone: 05-12-2015 14:58-0500 BP Diastolic 60 mm[Hg] Ya Garibay [facility] Work Phone: Comment on above: Patient Position: Sitting; Cuff Location : Left Arm; Cuff Size: Large 05-12-2015 14:58-0500 BP Systolic 118 mm[Hg] Ya Garibay [facility] Work Phone: Comment on above: Patient Position: Sitting; Cuff Location : Left Arm; Cuff Size: Large 05-12-2015 14:58-0500 BSA (Body Surface Area) 1.69 m2 Ya Garibay [facility] Work Phone: 05-12-2015 14:58-0500 Height 165.1 cm Ya Garibay [facility] Work Phone: 05-12-2015 14:58-0500 Pulse (Heart Rate) 64 /min Ya Garibay [facility] Work Phone: Comment on above: Pattern: Regular 05-12-2015 14:58-0500 Pulse Oximetry 97 % Ya Garibay [facility] Work Phone: Comment on above: Room air 05-12-2015 14:58-0500 Respiratory Rate 18 /min Ya Garibay [facility] Work Phone: Comment on above: Pattern: Unlabored 03-30-2015 11:57-0500 BMI (Body Mass Index) 22.96 kg/m2 Ya Garibay [facility] Work Phone: 03-30-2015 11:57-0500 Body Temperature 97.4 [degF] Ya Garibay [facility] Work Phone: Comment on above: Method: Temporal 03-30-2015 11:57-0500 Body weight 62.6 kg Ya Garibay [facility] Work Phone: 03-30-2015 11:57-0500 BP Diastolic 64 mm[Hg] Ya Garibay [facility] Work Phone: Comment on above: Patient Position: Sitting; Cuff Location : Left Arm; Cuff Size: Large 03-30-2015 11:57-0500 BP Systolic 102 mm[Hg] Ya Garibay [facility] Work Phone: Comment on above: Patient Position: Sitting; Cuff Location : Left Arm; Cuff Size: Large 03-30-2015 11:57-0500 BSA (Body Surface Area) 1.69 m2 Ya Garibay [facility] Work Phone: 03-30-2015 11:57-0500 Height 165.1 cm Ya Garibay [facility] Work Phone: 03-30-2015 11:57-0500 Pulse (Heart Rate) 84 /min Ya Garibay [facility] Work Phone: Comment on above: Pattern: Regular 03-30-2015 11:57-0500 Pulse Oximetry 93 % Ya Garibay [facility] Work Phone: Comment on above: Room air 03-30-2015 11:57-0500 Respiratory Rate 18 /min Ya Garibay [facility] Work Phone: Comment on above: Pattern: Unlabored 05-25-2014 11:12-0500 BMI (Body Mass Index) 22.31 kg/m2 Ya Garibay [facility] Work Phone: 05-25-2014 11:12-0500 Body Temperature 100 [degF] Ya Garibay [facility] Work Phone: Comment on above: Method: Temporal 05-25-2014 11:12-0500 Body weight 60.81 kg Ya Garibay [facility] Work Phone: 05-25-2014 11:12-0500 BP Diastolic 84 mm[Hg] Ya Garibay [facility] Work Phone: Comment on above: Patient Position: Sitting; Cuff Location : Left Arm; Cuff Size: Standard 05-25-2014 11:12-0500 BP Systolic 122 mm[Hg] Ya Garibay [facility] Work Phone: Comment on above: Patient Position: Sitting; Cuff Location : Left Arm; Cuff Size: Standard 05-25-2014 11:12-0500 BSA (Body Surface Area) 1.67 m2 Ya Garibay [facility] Work Phone: 05-25-2014 11:12-0500 Height 165.1 cm Ya Garibay [facility] Work Phone: 05-25-2014 11:12-0500 Pulse (Heart Rate) 82 /min Ya Garibay [facility] Work Phone: Comment on above: Pattern: Regular 05-25-2014 11:12-0500 Pulse Oximetry 98 % Ya Garibay [facility] Work Phone: Comment on above: Room air 05-25-2014 11:12-0500 Respiratory Rate 16 /min Ya Garibay [facility] Work Phone: Comment on above: Pattern: Unlabored 01-31-2014 14:55-0400 BMI (Body Mass Index) 22.31 kg/m2 Ya Garibay [facility] Work Phone: 01-31-2014 14:55-0400 Body weight 60.81 kg Ya Garibay [facility] Work Phone: 01-31-2014 14:55-0400 BP Diastolic 80 mm[Hg] Ya Garibay [facility] Work Phone: Comment on above: Patient Position: Sitting; Cuff Location : Left Arm; Cuff Size: Standard 01-31-2014 14:55-0400 BP Systolic 120 mm[Hg] Ya Garibay [facility] Work Phone: Comment on above: Patient Position: Sitting; Cuff Location : Left Arm; Cuff Size: Standard 01-31-2014 14:55-0400 BSA (Body Surface Area) 1.67 m2 Ya Garibay [facility] Work Phone: 01-31-2014 14:55-0400 Height 165.1 cm Ya Garibay [facility] Work Phone: 01-31-2014 14:55-0400 Pulse (Heart Rate) 84 /min Ya Garibay [facility] Work Phone: Comment on above: Pattern: Regular 01-31-2014 14:55-0400 Pulse Oximetry 98 % Ya Garibay [facility] Work Phone: Comment on above: Room air 01-31-2014 14:55-0400 Respiratory Rate 18 /min Ya Garibay [facility] Work Phone: Comment on above: Pattern: Unlabored 06-29-2013 14:59-0400 BMI (Body Mass Index) 21.65 kg/m2 Ya Stinsonalta [facility] Work Phone: 06-29-2013 14:59-0400 Body Temperature 99.5 [degF] Ya Garibay [facility] Work Phone: Comment on above: Method: Tympanic 06-29-2013 14:59-0400 Body weight 59.02 kg Ya Garibay [facility] Work Phone: 06-29-2013 14:59-0400 BP Diastolic 58 mm[Hg] Ya Garibay [facility] Work Phone: Comment on above: Patient Position: Sitting; Cuff Location : Left Arm; Cuff Size: Standard 06-29-2013 14:59-0400 BP Systolic 98 mm[Hg] Ya Garibay [facility] Work Phone: Comment on above: Patient Position: Sitting; Cuff Location : Left Arm; Cuff Size: Standard 06-29-2013 14:59-0400 BSA (Body Surface Area) 1.65 m2 Ya Garibay [facility] Work Phone: 06-29-2013 14:59-0400 Height 165.1 cm Ya Garibay [facility] Work Phone: 06-29-2013 14:59-0400 Pulse (Heart Rate) 78 /min Ya Garibay [facility] Work Phone: Comment on above: Pattern: Regular 06-29-2013 14:59-0400 Pulse Oximetry 98 % Ya Garibay [facility] Work Phone: Comment on above: Room air 06-29-2013 14:59-0400 Respiratory Rate 18 /min Ya Garibay [facility] Work Phone: Comment on above: Pattern: Unlabored 11-06-2012 09:18-0400 BMI (Body Mass Index) 21.87 kg/m2 Ya Bobby [facility] Work Phone: 11-06-2012 09:18-0400 Body Temperature 97.6 [degF] Ya Garibay [facility] Work Phone: Comment on above: Method: Temporal 11-06-2012 09:18-0400 Body weight 59.62 kg Ya Garibay [facility] Work Phone: 11-06-2012 09:18-0400 BP Diastolic 74 mm[Hg] Ya Garibay [facility] Work Phone: Comment on above: Patient Position: Sitting; Cuff Location : Left Arm; Cuff Size: Standard 11-06-2012 09:18-0400 BP Systolic 115 mm[Hg] Ya [facility]ay [facility] Work Phone: Comment on above: Patient Position: Sitting; Cuff Location : Left Arm; Cuff Size: Standard 11-06-2012 09:18-0400 BSA (Body Surface Area) 1.66 m2 Ya Garibay [facility] Work Phone: 11-06-2012 09:18-0400 Height 165.1 cm Ya Garibay [facility] Work Phone: 11-06-2012 09:18-0400 Pulse (Heart Rate) 69 /min Ya Garibay [facility] Work Phone: Comment on above: Pattern: Regular 11-06-2012 09:18-0400 Pulse Oximetry 97 % Ya Garibay [facility] Work Phone: Comment on above: Room air 11-06-2012 09:18-0400 Respiratory Rate 16 /min Ya Garibay [facility] Work Phone: Comment on above: Pattern: Unlabored 05-01-2012 13:44-0500 BMI (Body Mass Index) 21.87 kg/m2 Ya Bobby [facility] Work Phone: 05-01-2012 13:44-0500 Body Temperature 98 [degF] Ya Garibay [facility] Work Phone: Comment on above: Method: Oral 05-01-2012 13:44-0500 Body weight 59.62 kg Ya Garibay [facility] Work Phone: 05-01-2012 13:44-0500 BP Diastolic 78 mm[Hg] Ya Garibay [facility] Work Phone: Comment on above: Patient Position: Sitting; Cuff Location : Left Arm; Cuff Size: Large 05-01-2012 13:44-0500 BP Systolic 122 mm[Hg] Ya Garibay [facility] Work Phone: Comment on above: Patient Position: Sitting; Cuff Location : Left Arm; Cuff Size: Large 05-01-2012 13:44-0500 BSA (Body Surface Area) 1.66 m2 Ya Garibay [facility] Work Phone: 05-01-2012 13:44-0500 Height 165.1 cm Ya Garibay [facility] Work Phone: 05-01-2012 13:44-0500 Pulse (Heart Rate) 72 /min Ya Garibay [facility] Work Phone: Comment on above: Pattern: Regular 05-01-2012 13:44-0500 Respiratory Rate 20 /min Ya Garibay [facility] Work Phone: Comment on above: Pattern: Unlabored 03-18-2012 15:22-0500 BMI (Body Mass Index) 22.63 kg/m2 Ya Garibay [facility] Work Phone: 03-18-2012 15:22-0500 Body Temperature 98.2 [degF] Ya Garibay [facility] Work Phone: 03-18-2012 15:22-0500 Body weight 61.69 kg Ya Garibay [facility] Work Phone: 03-18-2012 15:22-0500 BP Diastolic 82 mm[Hg] Ya Garibay [facility] Work Phone: Comment on above: Patient Position: Sitting; Cuff Location : Left Arm; Cuff Size: Large 03-18-2012 15:22-0500 BP Systolic 118 mm[Hg] Ya Garibay [facility] Work Phone: Comment on above: Patient Position: Sitting; Cuff Location : Left Arm; Cuff Size: Large 03-18-2012 15:22-0500 BSA (Body Surface Area) 1.68 m2 Ya Garibay [facility] Work Phone: 03-18-2012 15:22-0500 Height 165.1 cm Ya Garibay [facility] Internal Medicine Work Phone: 03-18-2012 15:22-0500 Pulse (Heart Rate) 76 /min Ya Garibay [facility] Internal Medicine Work Phone: Comment on above: Pattern: Regular 03-18-2012 15:22-0500 Respiratory Rate 16 /min Ya Garibay [facility] Internal Medicine Work Phone: Comment on above: Pattern: Unlabored 10-11-2011 11:35-0400 BMI (Body Mass Index) 22.8 kg/m2 Ya Garibay [facility] Internal Medicine Work Phone: 10-11-2011 11:35-0400 Body Temperature 98 [degF] Ya Garibay [facility] Internal Medicine Work Phone: Comment on above: Method: Oral 10-11-2011 11:35-0400 Body weight 62.14 kg Ya Garibay [facility] Internal Medicine Work Phone: 10-11-2011 11:35-0400 BP Diastolic 74 mm[Hg] Ya Garibay [facility] Internal Medicine Work Phone: Comment on above: Patient Position: Sitting; Cuff Location : Left Arm; Cuff Size: Large 10-11-2011 11:35-0400 BP Systolic 118 mm[Hg] Ya Garibay [facility] Internal Medicine Work Phone: Comment on above: Patient Position: Sitting; Cuff Location : Left Arm; Cuff Size: Large 10-11-2011 11:35-0400 BSA (Body Surface Area) 1.68 m2 Ya Garibay [facility] Internal Medicine Work Phone: 10-11-2011 11:35-0400 Height 165.1 cm Ya Garibay [facility] Internal Medicine Work Phone: 10-11-2011 11:35-0400 Pulse (Heart Rate) 76 /min Ya Garibay [facility] Internal Medicine Work Phone: Comment on above: Pattern: Regular 10-11-2011 11:35-0400 Respiratory Rate 16 /min Ya Garibay [facility] Internal Medicine Work Phone: Comment on above: Pattern: Unlabored 09-27-2011 11:41-0400 BMI (Body Mass Index) 22.96 kg/m2 Ya Garibay [facility] Internal Medicine Work Phone: 09-27-2011 11:41-0400 Body Temperature 98 [degF] Ya Garibay [facility] Internal Medicine Work Phone: Comment on above: Method: Oral 09-27-2011 11:41-0400 Body weight 62.6 kg Ya Garibay [facility] Internal Medicine Work Phone: 09-27-2011 11:41-0400 BP Diastolic 76 mm[Hg] Ya Garibay [facility] Internal Medicine Work Phone: Comment on above: Patient Position: Sitting; Cuff Location : Left Arm; Cuff Size: Standard 09-27-2011 11:41-0400 BP Systolic 118 mm[Hg] Ya Garibay [facility] Internal Medicine Work Phone: Comment on above: Patient Position: Sitting; Cuff Location : Left Arm; Cuff Size: Standard 09-27-2011 11:41-0400 BSA (Body Surface Area) 1.69 m2 Ya Garibay [facility] Internal Medicine Work Phone: 09-27-2011 11:41-0400 Height 165.1 cm Ya Garibay [facility] Internal Medicine Work Phone: 09-27-2011 11:41-0400 Pulse (Heart Rate) 72 /min Ya Garibay [facility] Internal Medicine Work Phone: Comment on above: Pattern: Regular 09-27-2011 11:41-0400 Respiratory Rate 20 /min Ya Garibay [facility] Internal Medicine Work Phone: Comment on above: Pattern: Unlabored 07-15-2011 11:44-0400 BMI (Body Mass Index) 23.67 kg/m2 Ya Stinsonalta [facility] Internal Medicine Work Phone: 07-15-2011 11:44-0400 Body Temperature 98.2 [degF] Ya Garibay [facility] Internal Medicine Work Phone: Comment on above: Method: Oral 07-15-2011 11:44-0400 Body weight 64.52 kg Ya Garibay [facility] Internal Medicine Work Phone: 07-15-2011 11:44-0400 BP Diastolic 78 mm[Hg] Ya Garibay [facility] Internal Medicine Work Phone: Comment on above: Patient Position: Sitting; Cuff Location : Left Arm; Cuff Size: Large 07-15-2011 11:44-0400 BP Systolic 132 mm[Hg] Ya Garibay [facility] Internal Medicine Work Phone: Comment on above: Patient Position: Sitting; Cuff Location : Left Arm; Cuff Size: Large 07-15-2011 11:44-0400 BSA (Body Surface Area) 1.71 m2 Ya Garibay [facility] Internal Medicine Work Phone: 07-15-2011 11:44-0400 Height 165.1 cm Ya Garibay [facility] Internal Medicine Work Phone: 07-15-2011 11:44-0400 Pulse (Heart Rate) 64 /min Ya Garibay [facility] Internal Medicine Work Phone: Comment on above: Pattern: Regular 07-15-2011 11:44-0400 Respiratory Rate 18 /min Ya Garibay [facility] Internal Medicine Work Phone: Comment on above: Pattern: Unlabored 03-27-2011 15:13-0500 BMI (Body Mass Index) 23.36 kg/m2 Ya Stinsonalta [facility] Internal Medicine Work Phone: 03-27-2011 15:13-0500 Body Temperature 98.4 [degF] [facility]: Comment on above: Method: Oral 03-27-2011 15:13-0500 Body weight 63.67 kg Ya Garibay [facility] Internal Medicine Work Phone: 03-27-2011 15:13-0500 BP Diastolic 68 mm[Hg] Ya Garibay [facility] Internal Medicine Work Phone: Comment on above: Patient Position: Sitting; Cuff Location : Left Arm; Cuff Size: Large 03-27-2011 15:13-0500 BP Systolic 118 mm[Hg] Ya Garibay [facility] Internal Medicine Work Phone: Comment on above: Patient Position: Sitting; Cuff Location : Left Arm; Cuff Size: Large 03-27-2011 15:13-0500 BSA (Body Surface Area) 1.7 m2 Ya Garibay [facility] Internal Medicine Work Phone: 03-27-2011 15:13-0500 Height 165.1 cm Ya Garibay [facility] Internal Medicine Work Phone: 03-27-2011 15:13-0500 Pulse (Heart Rate) 68 /min Ya Garibay [facility] Internal Medicine Work Phone: Comment on above: Pattern: Regular 03-27-2011 15:13-0500 Respiratory Rate 20 /min Ya Garibay [facility] Internal Medicine Work Phone: Comment on above: Pattern: Unlabored 02-01-2011 14:31-0400 BMI (Body Mass Index) 23.33 kg/m2 Ya Garibay [facility] Internal Medicine Work Phone: 02-01-2011 14:31-0400 Body Temperature 97.3 [degF] Ya Garibay [facility] Internal Medicine Work Phone: Comment on above: Method: Oral 02-01-2011 14:31-0400 Body weight 63.59 kg Ya Garibay [facility] Internal Medicine Work Phone: 02-01-2011 14:31-0400 BP Diastolic 60 mm[Hg] Ya Garibay [facility] Internal Medicine Work Phone: Comment on above: Patient Position: Sitting; Cuff Location : Left Arm; Cuff Size: Large 02-01-2011 14:31-0400 BP Systolic 118 mm[Hg] Ya Garibay [facility] Internal Medicine Work Phone: Comment on above: Patient Position: Sitting; Cuff Location : Left Arm; Cuff Size: Large 02-01-2011 14:31-0400 BSA (Body Surface Area) 1.7 m2 Ya Garibay [facility] Internal Medicine Work Phone: 02-01-2011 14:31-0400 Height 165.1 cm Ya Garibay [facility] Internal Medicine Work Phone: 02-01-2011 14:31-0400 Pulse (Heart Rate) 60 /min Ya Garibay [facility] Internal Medicine Work Phone: Comment on above: Pattern: Regular 02-01-2011 14:31-0400 Respiratory Rate 20 /min Ya Garibay [facility] Internal Medicine Work Phone: Comment on above: Pattern: Unlabored 01-04-2011 14:40-0400 BMI (Body Mass Index) 23.37 kg/m2 Ya Garibay [facility] Internal Medicine Work Phone: 01-04-2011 14:40-0400 Body Temperature 97.5 [degF] Ya Garibay [facility] Internal Medicine Work Phone: Comment on above: Method: Oral 01-04-2011 14:40-0400 Body weight 63.7 kg Ya Garibay [facility] Internal Medicine Work Phone: 01-04-2011 14:40-0400 BP Diastolic 70 mm[Hg] [facility] Work [facility]: Comment on above: Patient Position: Sitting; Cuff Location : Left Arm; Cuff Size: Large 01-04-2011 14:40-0400 BP Systolic 122 mm[Hg] Ya Garibay [facility] Internal Medicine Work Phone: Comment on above: Patient Position: Sitting; Cuff Location : Left Arm; Cuff Size: Large 01-04-2011 14:40-0400 BSA (Body Surface Area) 1.7 m2 Ya Garibay [facility] Internal Medicine Work Phone: 01-04-2011 14:40-0400 Height 165.1 cm Ya Garibay [facility] Internal Medicine Work Phone: 01-04-2011 14:40-0400 Pulse (Heart Rate) 80 /min Ya Garibay [facility] Internal Medicine Work Phone: Comment on above: Pattern: Regular 01-04-2011 14:40-0400 Respiratory Rate 20 /min Ya Garibay [facility] Internal Medicine Work Phone: Comment on above: Pattern: Unlabored 07-30-2010 14:41-0400 BMI (Body Mass Index) 22.15 kg/m2 Ya Garibay [facility] Internal Medicine Work Phone: 07-30-2010 14:41-0400 Body weight 60.39 kg Ya Garibay [facility] Internal Medicine Work Phone: 07-30-2010 14:41-0400 BP Diastolic 60 mm[Hg] Ya Garibay [facility] Internal Medicine Work Phone: Comment on above: Patient Position: Sitting; Cuff Location : Left Arm; Cuff Size: Large 07-30-2010 14:41-0400 BP Systolic 110 mm[Hg] Ya Garibay [facility] Internal Medicine Work Phone: Comment on above: Patient Position: Sitting; Cuff Location : Left Arm; Cuff Size: Large 07-30-2010 14:41-0400 BSA (Body Surface Area) 1.66 m2 Ya Garibay [facility] Internal Medicine Work Phone: 07-30-2010 14:41-0400 Height 165.1 cm Ya Garibay [facility] Internal Medicine Work Phone: 07-30-2010 14:41-0400 Pulse (Heart Rate) 60 /min Ya Garibay [facility] Internal Medicine Work Phone: Comment on above: Pattern: Regular 07-30-2010 14:41-0400 Respiratory Rate 20 /min Ya Garibay [facility] Internal Medicine Work Phone: Comment on above: Pattern: Unlabored 07-13-2010 13:48-0400 BMI (Body Mass Index) 22.15 kg/m2 Ya Bobby [facility] Internal Medicine Work Phone: 07-13-2010 13:48-0400 Body Temperature 97.2 [degF] Ya Garibay [facility] Internal Medicine Work Phone: Comment on above: Method: Oral 07-13-2010 13:48-0400 Body weight 60.39 kg Ya Garibay [facility] Internal Medicine Work Phone: 07-13-2010 13:48-0400 BP Diastolic 62 mm[Hg] Ya Garibay [facility] Internal Medicine Work Phone: Comment on above: Patient Position: Sitting; Cuff Location : Left Arm; Cuff Size: Large 07-13-2010 13:48-0400 BP Systolic 122 mm[Hg] Ya [facility] Work Phone: Comment on above: Patient Position: Sitting; Cuff Location : Left Arm; Cuff Size: Large 07-13-2010 13:48-0400 BSA (Body Surface Area) 1.66 m2 Ya Garibay [facility] Internal Medicine Work Phone: 07-13-2010 13:48-0400 Height 165.1 cm Ya Garibay [facility] Internal Medicine Work Phone: 07-13-2010 13:48-0400 Pulse (Heart Rate) 60 /min Ya Garibay [facility] Internal Medicine Work Phone: Comment on above: Pattern: Regular 07-13-2010 13:48-0400 Respiratory Rate 20 /min Ya Garibay [facility] Internal Medicine Work Phone: Comment on above: Pattern: Unlabored 07-02-2010 15:48-0400 BMI (Body Mass Index) 22.16 kg/m2 Ya Bobby [facility] Internal Medicine Work Phone: 07-02-2010 15:48-0400 Body weight 60.41 kg Ya Garibay [facility] Internal Medicine Work Phone: 07-02-2010 15:48-0400 BP Diastolic 70 mm[Hg] Ya Garibay [facility] Internal Medicine Work Phone: Comment on above: Patient Position: Sitting; Cuff Location : Left Arm; Cuff Size: Large 07-02-2010 15:48-0400 BP Systolic 118 mm[Hg] Ya Garibay [facility] Internal Medicine Work Phone: Comment on above: Patient Position: Sitting; Cuff Location : Left Arm; Cuff Size: Large 07-02-2010 15:48-0400 BSA (Body Surface Area) 1.66 m2 Ya Garibay [facility] Internal Medicine Work Phone: 07-02-2010 15:48-0400 Height 165.1 cm Ya Garibay [facility] Internal Medicine Work Phone: 07-02-2010 15:48-0400 Pulse (Heart Rate) 60 /min Ya Garibay [facility] Internal Medicine Work Phone: Comment on above: Pattern: Regular 07-02-2010 15:48-0400 Respiratory Rate 20 /min Ya Garibay [facility] Internal Medicine Work Phone: Comment on above: Pattern: Unlabored 06-22-2010 14:35-0500 BMI (Body Mass Index) 21.98 kg/m2 Ya Garibay [facility] Internal Medicine Work Phone: 06-22-2010 14:35-0500 Body Temperature 98.2 [degF] Ya Garibay [facility] Internal Medicine Work Phone: Comment on above: Method: Oral 06-22-2010 14:35-0500 Body weight 59.9 kg Ya Garibay [facility] Internal Medicine Work Phone: 06-22-2010 14:35-0500 BP Diastolic 72 mm[Hg] Ya Garibay [facility] Internal Medicine Work Phone: Comment on above: Patient Position: Sitting; Cuff Location : Left Arm; Cuff Size: Standard 06-22-2010 14:35-0500 BP Systolic 118 mm[Hg] Ya Garibay [facility] Internal Medicine Work Phone: Comment on above: Patient Position: Sitting; Cuff Location : Left Arm; Cuff Size: Standard 06-22-2010 14:35-0500 BSA (Body Surface Area) 1.66 m2 Ya Garibay [facility] Internal Medicine Work Phone: 06-22-2010 14:35-0500 Height 165.1 cm Ya Garibay [facility] Internal Medicine Work Phone: 06-22-2010 14:35-0500 Pulse (Heart Rate) 64 /min Ya Garibay [facility] Internal Medicine Work Phone: Comment on above: Pattern: Regular 06-22-2010 14:35-0500 Respiratory Rate 20 /min Ya Garibay [facility] Internal Medicine Work Phone: Comment on above: Pattern: Unlabored 04-06-2010 14:40-0500 BMI (Body Mass Index) 21.39 kg/m2 Ya Garibay [facility] Internal Medicine Work Phone: 04-06-2010 14:40-0500 Body weight 58.32 kg Ya Garibay [facility] Internal Medicine Work Phone: 04-06-2010 14:40-0500 BP Diastolic 78 mm[Hg] Ya Garibay [facility] Internal Medicine Work Phone: Comment on above: Patient Position: Sitting; Cuff Location : Left Arm; Cuff Size: Standard 04-06-2010 14:40-0500 BP Systolic 122 mm[Hg] Ya Garibay [facility] Internal Medicine Work Phone: Comment on above: Patient Position: Sitting; Cuff Location : Left Arm; Cuff Size: Standard 04-06-2010 14:40-0500 BSA (Body Surface Area) 1.64 m2 Ya Garibay [facility] Internal Medicine Work Phone: 04-06-2010 14:40-0500 Height 165.1 cm Ya Garibay [facility] Internal Medicine Work Phone: 04-06-2010 14:40-0500 Pulse (Heart Rate) 64 /min Ya Garibay [facility] Internal Medicine Work Phone: Comment on above: Pattern: Regular 04-06-2010 14:40-0500 Respiratory Rate 18 /min Ya Garibay [facility] Internal Medicine Work Phone: Comment on above: Pattern: Unlabored 03-21-2010 10:56-0500 BMI (Body Mass Index) 21.36 kg/m2 Ya Bobby [facility] Internal Medicine Work Phone: 03-21-2010 10:56-0500 Body Temperature 97.7 [degF] Ya Garibay [facility] Internal Medicine Work Phone: Comment on above: Method: Oral 03-21-2010 10:56-0500 Body weight 58.23 kg Ya Garibay [facility] Internal Medicine Work Phone: 03-21-2010 10:56-0500 BP Diastolic 70 mm[Hg] Ya Garibay [facility] Internal Medicine Work Phone: Comment on above: Patient Position: Sitting; Cuff Location : Left Arm; Cuff Size: Standard 03-21-2010 10:56-0500 BP Systolic 112 mm[Hg] Ya Garibay [facility] Internal Medicine Work Phone: Comment on above: Patient Position: Sitting; Cuff Location : Left Arm; Cuff Size: Standard 03-21-2010 10:56-0500 BSA (Body Surface Area) 1.64 m2 Ya Garibay [facility] Internal Medicine Work Phone: 03-21-2010 10:56-0500 Height 165.1 cm Ya Garibay [facility] Internal Medicine Work Phone: 03-21-2010 10:56-0500 Pulse (Heart Rate) 78 /min Ya Garibay [facility] Internal Medicine Work Phone: Comment on above: Pattern: Regular 03-21-2010 10:56-0500 Respiratory Rate 16 /min Ya Garibay [facility] Internal Medicine Work Phone: Comment on above: Pattern: Unlabored 01-22-2010 14:48-0400 BMI (Body Mass Index) 21.36 kg/m2 Ya Bobby [facility] Internal Medicine Work Phone: 01-22-2010 14:48-0400 Body weight 58.23 kg Ya Garibay [facility] Internal Medicine Work Phone: 01-22-2010 14:48-0400 BP Diastolic 70 mm[Hg] Ya Garibay [facility] Internal Medicine Work Phone: Comment on above: Patient Position: Sitting; Cuff Location : Left Arm; Cuff Size: Standard 01-22-2010 14:48-0400 BP Systolic 120 mm[Hg] Ya Garibay [facility] Internal Medicine Work Phone: Comment on above: Patient Position: Sitting; Cuff Location : Left Arm; Cuff Size: Standard 01-22-2010 14:48-0400 BSA (Body Surface Area) 1.64 m2 Ya Garibay [facility] Internal Medicine Work Phone: 01-22-2010 14:48-0400 Height 165.1 cm aY Garibay [facility] Internal Medicine Work Phone: 01-22-2010 14:48-0400 Pulse (Heart Rate) 60 /min Ya Garibay [facility] Internal Medicine Work Phone: Comment on above: Pattern: Regular 01-22-2010 14:48-0400 Respiratory Rate 20 /min Ya Garibay [facility] Internal Medicine Work Phone: Comment on above: Pattern: Unlabored 10-03-2009 10:04-0400 BMI (Body Mass Index) 20.97 kg/m2 Ya Garibay [facility] Internal Medicine Work Phone: 10-03-2009 10:04-0400 Body Temperature 97.4 [degF] Ya Garibay [facility] Internal Medicine Work Phone: Comment on above: Method: Oral 10-03-2009 10:04-0400 Body weight 57.15 kg Ya Garibay [facility] Internal Medicine Work Phone: 10-03-2009 10:04-0400 BP Diastolic 70 mm[Hg] Ya Garibay [facility] Internal Medicine Work Phone: Comment on above: Patient Position: Sitting; Cuff Location : Left Arm; Cuff Size: Standard 10-03-2009 10:04-0400 BP Systolic 110 mm[Hg] Ya Garibay [facility] Internal Medicine Work Phone: Comment on above: Patient Position: Sitting; Cuff Location : Left Arm; Cuff Size: Standard 10-03-2009 10:04-0400 BSA (Body Surface Area) 1.63 m2 Ya Garibay [facility] Work Phone: 10-03-2009 10:04-0400 Height 165.1 cm Ya Garibay [facility] Internal Medicine Work Phone: 10-03-2009 10:04-0400 Pulse (Heart Rate) 72 /min Ya Garibay [facility] Internal Medicine Work Phone: Comment on above: Pattern: Regular 10-03-2009 10:04-0400 Respiratory Rate 17 /min Ya Garibay [facility] Internal Medicine Work Phone: Comment on above: Pattern: Unlabored 03-22-2009 15:43-0500 Body Temperature 97.1 [degF] Ya Garibay [facility] Internal Medicine Work Phone: Comment on above: Method: Undefined 03-22-2009 15:43-0500 Body weight 0 kg Ya Garibay [facility] Internal Medicine Work Phone: 03-22-2009 15:43-0500 BP Diastolic 78 mm[Hg] Ya Garibay [facility] Internal Medicine Work Phone: Comment on above: Patient Position: Sitting; Cuff Location : Left Arm; Cuff Size: Standard 03-22-2009 15:43-0500 BP Systolic 118 mm[Hg] Ya Garibay [facility] Internal Medicine Work Phone: Comment on above: Patient Position: Sitting; Cuff Location : Left Arm; Cuff Size: Standard 03-22-2009 15:43-0500 Head Circumference 0 cm Ya Garibay [facility] Internal Medicine Work Phone: 03-22-2009 15:43-0500 Height 0 cm Ya Garibay [facility] Internal Medicine Work Phone: 03-22-2009 15:43-0500 Pulse (Heart Rate) 68 /min Ya Montemayor Internal Medicine Work Phone: Comment on above: Pattern: Regular 03-22-2009 15:43-0500 Pulse Oximetry 96 % Ya Garibay [facility] Internal Medicine Work Phone: Comment on above: Room air 03-22-2009 15:43-0500 Respiratory Rate 18 /min Ya Garibay [facility] Internal Medicine Work Phone: Comment on above: Pattern: Undefined 08-25-2008 15:35-0400 BMI (Body Mass Index) 20.97 kg/m2 Ya Garibay [facility] Internal Medicine Work Phone: 08-25-2008 15:35-0400 Body Temperature 99.1 [degF] Ya Garibay [facility] Internal Medicine Work Phone: Comment on above: Method: Undefined 08-25-2008 15:35-0400 Body weight 57.15 kg Ya Garibay [facility] Internal Medicine Work Phone: 08-25-2008 15:35-0400 BP Diastolic 74 mm[Hg] Ya Garibay [facility] Internal Medicine Work Phone: Comment on above: Patient Position: Sitting; Cuff Location : Left Arm; Cuff Size: Large 08-25-2008 15:35-0400 BP Systolic 104 mm[Hg] Ya Garibay [facility] Internal Medicine Work Phone: Comment on above: Patient Position: Sitting; Cuff Location : Left Arm; Cuff Size: Large 08-25-2008 15:35-0400 BSA (Body Surface Area) 1.63 m2 Ya Garibay [facility] Internal Medicine Work Phone: 08-25-2008 15:35-0400 Head Circumference 0 cm Ya Garibay [facility] Internal Medicine Work Phone: 08-25-2008 15:35-0400 Height 165.1 cm Ya Garibay [facility] Internal Medicine Work Phone: 08-25-2008 15:35-0400 Pulse (Heart Rate) 76 /min Ya Garibay [facility] Internal Medicine Work Phone: Comment on above: Pattern: Regular 08-25-2008 15:35-0400 Respiratory Rate 16 /min Ya Garibay [facility] Internal Medicine Work Phone: Comment on above: Pattern: Undefined 05-24-2008 14:47-0500 Body Temperature 98 [degF] Ya Garibay [facility] Internal Medicine Work Phone: Comment on above: Method: Undefined 05-24-2008 14:47-0500 Body weight 0 kg Ya Garibay [facility] Internal Medicine Work Phone: 05-24-2008 14:47-0500 BP Diastolic 68 mm[Hg] Ya Garibay [facility] Internal Medicine Work Phone: Comment on above: Patient Position: Sitting; Cuff Location : Left Arm; Cuff Size: Large 05-24-2008 14:47-0500 BP Systolic 96 mm[Hg] Ya Garibay [facility] Internal Medicine Work Phone: Comment on above: Patient Position: Sitting; Cuff Location : Left Arm; Cuff Size: Large 05-24-2008 14:47-0500 Head Circumference 0 cm Ya Garibay [facility] Internal Medicine Work Phone: 05-24-2008 14:47-0500 Height 0 cm Ya Garibay [facility] Internal Medicine Work Phone: 05-24-2008 14:47-0500 Pulse (Heart Rate) 84 /min Ya Garibay [facility] Internal Medicine Work Phone: Comment on above: Pattern: Regular 05-24-2008 14:47-0500 Respiratory Rate 16 /min Ya Garibay [facility] Internal Medicine Work Phone: Comment on above: Pattern: Undefined 02-02-2008 10:45-0400 BMI (Body Mass Index) 21.36 kg/m2 Ya Garibay [facility] Internal Medicine Work Phone: 02-02-2008 10:45-0400 Body Temperature 98.1 [degF] Ya Garibay [facility] Internal Medicine Work Phone: Comment on above: Method: Oral 02-02-2008 10:45-0400 Body weight 58.23 kg Ya Garibay [facility] Internal Medicine Work Phone: 02-02-2008 10:45-0400 BP Diastolic 74 mm[Hg] Ya Garibay [facility] Internal Medicine Work Phone: Comment on above: Patient Position: Sitting; Cuff Location : Left Arm; Cuff Size: Standard 02-02-2008 10:45-0400 BP Systolic 110 mm[Hg] Ya Garibay [facility] Internal Medicine Work Phone: Comment on above: Patient Position: Sitting; Cuff Location : Left Arm; Cuff Size: Standard 02-02-2008 10:45-0400 BSA (Body Surface Area) 1.64 m2 Ya Garibay [facility] Internal Medicine Work Phone: 02-02-2008 10:45-0400 Head Circumference 0 cm Ya Garibay [facility] Internal Medicine Work Phone: 02-02-2008 10:45-0400 Height 165.1 cm Ya Garibay [facility] Internal Medicine Work Phone: 02-02-2008 10:45-0400 Pulse (Heart Rate) 74 /min Ya Garibay [facility] Internal Medicine Work Phone: Comment on above: Pattern: Regular 02-02-2008 10:45-0400 Pulse Oximetry 96 % Ya Garibay [facility] Internal Medicine Work Phone: Comment on above: Room air 02-02-2008 10:45-0400 Respiratory Rate 18 /min Ya Garibay [facility] Internal Medicine Work Phone: Comment on above: Pattern: Unlabored 03-30-2007 17:06-0500 Body Temperature 98.2 [degF] Ya Garibay [facility] Internal Medicine Work Phone: Comment on above: Method: Oral 03-30-2007 17:06-0500 Body weight 0 kg Ya Garibay [facility] Internal Medicine Work Phone: 03-30-2007 17:06-0500 BP Diastolic 68 mm[Hg] Ya Garibay [facility] Internal Medicine Work Phone: Comment on above: Patient Position: Sitting; Cuff Location : Left Arm; Cuff Size: Standard 03-30-2007 17:06-0500 BP Systolic 110 mm[Hg] Ya Garibay [facility] Internal Medicine Work Phone: Comment on above: Patient Position: Sitting; Cuff Location : Left Arm; Cuff Size: Standard 03-30-2007 17:06-0500 Head Circumference 0 cm Ya Garibay [facility] Internal Medicine Work Phone: 03-30-2007 17:06-0500 Height 165.1 cm Ya Garibay [facility] Medicine Work Phone: 03-30-2007 17:06-0500 Pulse (Heart Rate) 72 /min Ya Garibay [facility] Internal Medicine Work Phone: Comment on above: Pattern: Regular 03-30-2007 17:06-0500 Respiratory Rate 17 /min Ya Garibay [facility] Internal Medicine Work Phone: Comment on above: Pattern: Unlabored 03-10-2007 15:50-0500 Body Temperature 98.4 [degF] Ya Garibay [facility] Internal Medicine Work Phone: Comment on above: Method: Oral 03-10-2007 15:50-0500 Body weight 0 kg Ya Garibay [facility] Internal Medicine Work Phone: 03-10-2007 15:50-0500 BP Diastolic 70 mm[Hg] Ya Garibay [facility] Internal Medicine Work Phone: Comment on above: Patient Position: Sitting; Cuff Location : Left Arm; Cuff Size: Standard 03-10-2007 15:50-0500 BP Systolic 104 mm[Hg] Ya Garibay [facility] Internal Medicine Work Phone: Comment on above: Patient Position: Sitting; Cuff Location : Left Arm; Cuff Size: Standard 03-10-2007 15:50-0500 Head Circumference 0 cm Ya Garibay [facility] Internal Medicine Work Phone: 03-10-2007 15:50-0500 Height 0 cm Ya Garibay [facility] Internal Medicine Work Phone: 03-10-2007 15:50-0500 Pulse (Heart Rate) 70 /min Ya Garibay [facility] Internal Medicine Work Phone: Comment on above: Pattern: Regular 03-10-2007 15:50-0500 Respiratory Rate 18 /min Ya Garibay [facility] Internal Medicine Work Phone: Comment on above: Pattern: Unlabored 01-02-2007 15:13-0400 Body Temperature 98.5 [degF] Ya Garibay [facility] Internal Medicine Work Phone: Comment on above: Method: Oral 01-02-2007 15:13-0400 Body weight 0 kg Ya Garibay [facility] Internal Medicine Work Phone: 01-02-2007 15:13-0400 BP Diastolic 70 mm[Hg] Ya [facility] Work Phone: Comment on above: Patient Position: Sitting; Cuff Location : Left Arm; Cuff Size: Standard 01-02-2007 15:13-0400 BP Systolic 102 mm[Hg] Ya Gar[facility]ay [facility] Work Phone: Comment on above: Patient Position: Sitting; Cuff Location : Left Arm; Cuff Size: Standard 01-02-2007 15:13-0400 Head Circumference 0 cm Ya Garibay [facility] Internal Medicine Work Phone: 01-02-2007 15:13-0400 Height 0 cm Ya Garibay [facility] Internal Medicine Work Phone: 01-02-2007 15:13-0400 Pulse (Heart Rate) 80 /min Ya Garibay [facility] Internal Medicine Work Phone: Comment on above: Pattern: Regular 01-02-2007 15:13-0400 Respiratory Rate 16 /min Ya Garibay [facility] Internal Medicine Work Phone: Comment on above: Pattern: Unlabored 07-30-2006 08:38-0400 Body Temperature 97.5 [degF] Ya Garibay [facility] Internal Medicine Work Phone: Comment on above: Method: Oral 07-30-2006 08:38-0400 Body weight 0 kg Ya Garibay [facility] Internal Medicine Work Phone: 07-30-2006 08:38-0400 BP Diastolic 76 mm[Hg] Ya Garibay [facility] Internal Medicine Work Phone: Comment on above: Patient Position: Sitting; Cuff Location : Left Arm; Cuff Size: Standard 07-30-2006 08:38-0400 BP Systolic 118 mm[Hg] Ya Garibay [facility] Internal Medicine Work Phone: Comment on above: Patient Position: Sitting; Cuff Location : Left Arm; Cuff Size: Standard 07-30-2006 08:38-0400 Head Circumference 0 cm Ya Garibay [facility] Internal Medicine Work Phone: 07-30-2006 08:38-0400 Height 0 cm Ya Garibay [facility] Internal Medicine Work Phone: 07-30-2006 08:38-0400 Pulse (Heart Rate) 78 /min Ya Garibay [facility] Internal Medicine Work Phone: Comment on above: Pattern: Regular 07-30-2006 08:38-0400 Respiratory Rate 18 /min Ya Garibay [facility] Internal Medicine Work Phone: Comment on above: Pattern: Unlabored 06-18-2006 13:32-0500 Body Temperature 99.1 [degF] Ya Garibay [facility] Internal Medicine Work Phone: Comment on above: Method: Undefined 06-18-2006 13:32-0500 Body weight 0 kg Ya Garibay [facility] Internal Medicine Work Phone: 06-18-2006 13:32-0500 BP Diastolic 70 mm[Hg] Ya Garibay [facility] Internal Medicine Work Phone: Comment on above: Patient Position: Undefined; Cuff Locati on: Undefined; Cuff Size: Undefined 06-18-2006 13:32-0500 BP Systolic 132 mm[Hg] Ya Garibay [facility] Internal Medicine Work Phone: Comment on above: Patient Position: Undefined; Cuff Locati on: Undefined; Cuff Size: Undefined 06-18-2006 13:32-0500 Head Circumference 0 cm Ya Garibay [facility] Internal Medicine Work Phone: 06-18-2006 13:32-0500 Height 0 cm Ya Garibay [facility] Medicine Work Phone: 06-18-2006 13:32-0500 Pulse (Heart Rate) 68 /min Ya Garibay [facility] Medicine Work Phone: Comment on above: Pattern: Regular 06-18-2006 13:32-0500 Respiratory Rate 16 /min Ya Gar[facility]ay [facility] Work Phone: Comment on above: Pattern: Undefined Encounters Encounter Date Encounter Type Care Provider Facility Start: 03-25-2025 ambulatory Felicita Johnson NP Fac ility:[facility] Start: 02-22-2025 End: 02-22-2025 ambulatory Ya Garibay Facility:[facility] Start: 01-21-2025 End: 01-21-2025 Patient encounter procedure Levi RICHARD [facility] Work Phone: Start: 01-21-2025 End: 01-21-[address] Ya Garibay DO Work Phone: [facility] Start: 01-21-2025 End: 01-21-2025 ambulatory Levi RICHARD Facility:[facility] Start: 01-20-[address] Ya Garibay DO -Outpatient Bone Densitometry Work Phone: Start: 01-20-2025 End: 01-20-2025 ambulatory Ya Garibay Facility:[facility] Start: 12-27-2024 Registered [facility]ESS[facility] -Employee Health Start: 12-27-2024 ambulatory Ya Lani Facilit y:[facility] Start: 10-19-2024 Non-patient / Non-visit Dr. Maya Monk MD -[facility] Work Phone: Start: 05-26-2024 End: 05-26-2024 ambulatory Felicita Johnson NP Facility[facility] Start: 03-23-2024 End: 03-23-2024 ambulatory Ya Garibay Facility:[facility] Start: 05-14-[address] Ya Garibay DO Work Phone: [facility] Start: 03-21-2023 End: 03-21-[address] Teri Muller Work Phone: [facility] Work Phone: Start: 03-21-2023 End: 03-21-[address] [facility] Work Phone: Start: 02-12-2023 End: 02-12-2023 Encounter for general adult medical examination without abnormal findings Dr. Teri Muller Work Phone: [facility] Start: 02-12-2023 End: 02-12-[address] Teri Muller Work Phone: [facility] Internal Medicine Work Phone: Start: 02-04-[address] Ras Muller Work Phone: [facility] Start: 11-26-2022 End: 11-26-[address] Teri Muller Work Phone: [facility]-Laboratory, [facility] Start: 11-06-2022 End: 11-06-[address] Teri Muller Work Phone: [facility] Work Phone: Start: 11-06-2022 End: 11-06-[address] Teri Muller Work Phone: [facility] Internal Medicine Work Phone: Start: 10-30-2022 End: 10-30-[address] Teri Muller Work Phone: [facility] Work Phone: Start: 10-30-2022 End: 10-30-[address] Ter[facility] Mull[facility] Work Phone: Start: 10-30-2022 End: 10-30-[address] Teri Muller Work Phone: [facility] Work Phone: Start: 09-24-2022 End: 09-24-[address] Teri Muller Work Phone: [facility]-Outpatient Bone Densitometry Work Phone: Start: 08-21-2022 End: 08-21-[address] Teri Muller Work Phone: [facility] Work Phone: Start: 08-21-2022 End: 08-21-2022 Encounter for general adult medical examination without abnormal findings Dr. Teri Muller Work Phone: [facility] Start: 08-21-2022 End: 08-21-[address] Teri Muller Work Phone: [facility] Internal Medicine Start: 07-31-2022 End: 07-31-[address] Teri Muller Work Phone: [facility] Start: 06-11-2022 End: 06-11-[address] Teri Muller Work Phone: [facility] Start: 04-23-2022 End: 04-23-[address] Teri Muller Work Phone: [facility] Start: 04-19-2022 End: 04-19-[address] Teri Muller Work Phone: [facility] Work Phone: Start: 04-19-2022 End: 04-19-[address] Teri Muller Work Phone: [facility]-Outpatient Breast Imaging Start: 04-18-2022 End: 04-18-[address] Ter[facility] Mull[facility] Start: 03-20-2022 End: 03-20-[address] Teri Muller Work Phone: [facility] Work Phone: Start: 03-20-2022 End: 03-20-[address] Teri Muller Work Phone: [facility] Start: 02-28-2022 End: 02-28-[address] Teri Muller Work Phone: [facility] Endocrinology Start: 02-06-2022 End: 02-06-[address] Teri Muller Work Phone: [facility] Work Phone: Start: 02-06-[address] Ras Muller Work Phone: [facility]-Employee Health Start: 02-06-2022 End: 02-06-2022 Encounter for general adult medical examination without abnormal findings Dr. Teri Muller Work Phone: [facility] Internal Medicine Start: 02-06-2022 End: 02-06-[address] Teri Muller Work Phone: [facility] Internal Medicine Start: 02-09-[address] Teri Muller Work Phone: [facility] Start: 01-02-2019 Encounter for genera l adult medical examination without abnormal findings SHAUN SALDAÑA [facility] Start: 01-02-2019 End: 01-02-2019 Patient encounter procedure SHAUN DE LA ROSA [facility] Start: 05-12-2015 End: 05-12-2015 Office outpatient visit 15 minutes Ya [facility]ay [facility] Start: 03-30-2015 End: 03-30-2015 Office outpatient visit 25 minutes Ya Lani [facility] Start: 05-25-2014 End: 05-25-2014 Office outpatient visit 15 minutes Ya Garibay [facility] Start: 01-31-2014 End: 01-31-2014 Periodic preventive med est patient 40-64yrs Ya Montemayor [facility] Start: 06-29-2013 End: 06-29-2013 Annotation/Addendum Ya Garibay [facility] Clerk Manager al Medicine Start: 06-29-2013 End: 06-29-2013 Office outpatient visit 15 minutes Ya Garibay [facility] Start: 11-06-2012 End: 11-06-2012 Office outpatient visit 25 minutes Ya Garibay [facility] Start: 08-12-2012 End: 08-12-2012 Phone Encounter Ya Garibay [facility] Clerk Manager al Medicine Start: 08-12-2012 End: 08-12-2012 Phone Encounter Ya Montemayor Clerk Manager al Medicine Start: 05-01-2012 End: 05-01-2012 Patient encounter procedure Ya Garibay [facility] Start: 03-23-2012 End: 03-23-2012 Annotation/Addendum Ya Garibay [facility] Clerk Manager al Medicine Start: 03-18-2012 End: 03-18-2012 Office outpatient visit 15 minutes Ya Garibay [facility] Start: 10-11-2011 End: 10-11-2011 Office outpatient visit 15 minutes Ya Garibay [facility] Start: 09-27-2011 End: 09-27-2011 Office outpatient visit 15 minutes Ya Garibay [facility] Start: 07-15-2011 End: 07-15-2011 Patient encounter procedure Ya Garibay [facility] Medicine Start: 04-03-2011 End: 04-03-2011 Telephone encounter Rj Armando Chanel Work Phone: General Surgery Comment on above: Disability David Start: 03-27-2011 End: 03-27-2011 Patient encounter procedure Ya Garibay [facility] Medicine Start: 02-01-2011 End: 02-01-2011 Patient encounter procedure Ya Garibay [facility] Start: 01-14-2011 End: 01-14-2011 Phone Encounter Ya Garibay [facility] Clerk Manager al Medicine Start: 01-04-2011 End: 01-04-2011 Patient encounter procedure Ya Garibay [facility] Start: 07-30-2010 End: 07-30-2010 Patient encounter procedure Ya Garibay [facility] Start: 07-13-2010 End: 07-13-2010 Patient encounter procedure Ya Garibay [facility] Start: 07-04-2010 End: 07-04-2010 Phone Encounter Ya Garibay [place] Clerk Manager al Medicine Start: 07-02-2010 End: 07-02-2010 Patient encounter procedure Ya Garibay [facility] Start: 06-25-2010 End: 06-25-2010 Phone Encounter Ya Garibay [facility] Clerk Manager al Medicine Start: 06-22-2010 End: 06-25-2010 Patient encounter procedure Ya Garibay [facility] Start: 04-16-2010 End: 04-16-2010 Annotation/Addendum Yanatasha Garibay [facility] Clerk Manager al Medicine Start: 04-06-2010 End: 04-06-2010 Patient encounter procedure Ya Garibay [facility] Start: 03-21-2010 End: 03-21-2010 Office outpatient visit 25 minutes Ya Lani [facility] Start: 01-22-2010 End: 01-22-2010 Patient encounter procedure Ya Garibay [facility] Start: 10-03-2009 End: 10-03-2009 Office outpatient visit 15 minutes Ya Lani [facility] Start: 06-12-2009 End: 06-12-2009 Historical Summary Yanatasha Garibay [place] Clerk Manager al Medicine Start: 03-22-2009 End: 03-22-2009 Patient encounter procedure Ya Garibay [facility] Start: 08-25-2008 End: 08-25-2008 Office outpatient visit 15 minutes Ya Lani [facility] Start: 05-24-2008 End: 05-24-2008 Patient encounter procedure Yanatasha Garibay [facility] Start: 02-08-2008 End: 02-08-2008 Annotation/Addendum Ya Lani [facility] Clerk Manager al Medicine Start: 02-02-2008 End: 02-02-2008 Office outpatient visit 15 minutes Ya Garibay [facility] Medicine Start: 03-30-2007 End: 03-30-2007 Office outpatient visit 10 minutes Ya Lani [facility] Medicine Start: 03-10-2007 End: 03-10-2007 Office outpatient visit 25 minutes Ya Garibay [facility] Start: 01-02-2007 End: 01-02-2007 Patient encounter procedure Ya Montemayor [facility] Start: 07-30-2006 End: 07-30-2006 Office outpatient visit 15 minutes Ya Montemayor [facility] Start: 06-18-2006 End: 06-18-2006 Office outpatient visit 25 minutes Ya Montemayor [facility] Procedures Date Procedure Procedure Detail Performing Clinician Start: 01-21-2025 Plain X-ray of shoulder Dr. Ya Garibay DO Work Phone: Start: 01-20-2025 Screening mammography Trina Garibay DO Work Phone: Start: 12-27-2024 Serum inorganic phos phate measurement Dr. Ya Garibay DO Work Phone: Start: 03-21-[address] Ras Muller Work Phone: Start: 09-24-2022 Dual energy X-ray absorptiometry Dr. Teri Muller Work Phone: Start: 04-23-2022 Radiologic examinati on of knee Dr. Teri Muller Work Phone: Start: 04-19-2022 Screening mammography D marina Muller Work Phone: Start: 03-20-[address] Ras Muller Work Phone: H/O splenectomy H/O splenectomy Dr. Lee Muller Work Phone: H/O: surgery History of ebony bular surgery Dr. Teri Muller Work Phone: History of cholecystectomy Hx of cholecystectomy Dr. Teri Muller Work Phone: History of thyroidectomy H/O thyroidectom y Dr. Teri Muller Work Phone: Thyroid removed Taina anthony Comment on above: 03/07/11 Plan of Treatment Date Care Activity Detail Author Start: 01-20-2025 Dual energy X-ray absorptiometry Dexa Bone Density Study [facility] Start: 02-12-2023 Patient referral [facility] Work Phone: Start: 02-06-2022 Patient referral [facility] Work Phone: Start: 12-20-2020 Influenza vaccination INFLUENZ A (Season Ended) [facility] Start: 05-12-2015 TSH Qn TSH (01460) [facility] Work Phone: Start: 05-12-2015 Lipid panel LIPID PANEL (39957) [facility] Medicine Work Phone: Start: 05-12-2015 Cobalamin (Vitamin B 12) [Mass/Vol] VITAMIN B-12 (CYANOCOBALAMIN) (68795) [facility] Work Phone: Start: 05-12-2015 Provider Instruction s for Treatment [facility] Work Phone: Start: 03-30-2015 Patient Education Pneumonia *: jonathan johnson [facility] Work Phone: Start: 03-30-2015 Provider Instruction s for Treatment Follow up in 1 month- gen med visit [facility] Work Phone: Start: 2014 Screening for malign ant neoplasm of colon [facility] Start: 2014 SHINGRIX VACCINE (1 of 2) SHINGRIX VACCINE (1 of 2) [facility] Start: 05-25-2014 Patient Education [facility] Work Phone: Start: 05-25-2014 Procedure Education Eprescribe d prescriptions (G8553) [facility] Work Phone: Start: 06-29-2013 Provider Instruction s for Treatment Follow up if no improvement or if symptoms worsen [facility] Work Phone: Start: 08-12-2012 TSH Qn TSH (23936) [facility] Work Phone: Start: 08-12-2012 Free T4 [Mass/Vol] T4, FREE (T HYROXINE) ([id number]) [facility] Work Phone: Start: 08-12-2012 Free T3 [Mass/Vol] T3, FREE (TRIDOTHYRONINE) ([id number]) [facility] Work Phone: Start: 05-01-2012 Iaadiadoo influenza Rapid Flu (73640 x 2) [facility] Work Phone: Start: 03-18-2012 Patient Education Sore Throat *: acute pharyngitis [facility] Work Phone: Start: 03-18-2012 Provider Instruction s for Treatment [facility] Work Phone: Start: 09-27-2011 Provider Instruction s for Treatment Follow up in 2 weeks [facility] Work Phone: Start: 09-27-2011 Gonadotropin luteini zing hormone GONADOTROPIN-LH (55843) [facility] Work Phone: Start: 09-27-2011 Gonadotropin follicl e stimulating hormone GONADOTROPIN-FSH (05340) [facility] Work Phone: Start: 07-15-2011 Provider Instruction s for Treatment *Antibiotic Usage Education - Female [facility] Work Phone: Start: 03-27-2011 S. pyogenes Ag IA Ql (Unsp spec) Rapid Strep Test, Office (00477) [facility] Work Phone: Start: 03-27-2011 Provider Instruction s for Treatment [facility] Work Phone: Start: 02-01-2011 Provider Instruction s for Treatment [facility] Work Phone: Start: 01-04-2011 TSH Qn TSH (82372) [facility] Work Phone: Start: 01-04-2011 Assay of estradiol ESTRADIOL (65844) [facility] Work Phone: Start: 01-04-2011 Gonadotropin luteini zing hormone GONADOTROPIN-LH (59299) [facility] Work Phone: Start: 01-04-2011 Gonadotropin follicl e stimulating hormone GONADOTROPIN-FSH (62216) [facility] Work Phone: Start: 01-04-2011 Provider Instruction s for Treatment Follow up in 1 month [facility] Work Phone: Start: 07-30-2010 Provider Instruction s for Treatment [facility] Work Phone: Start: 07-13-2010 Provider Instruction s for Treatment [facility] Work Phone: Start: 07-02-2010 TSH Qn TSH (34813) [facility] Work Phone: Start: 07-02-2010 Free T4 [Mass/Vol] T4, FREE (T HYROXINE) (41302) [facility] Work Phone: Start: 07-02-2010 Free T3 [Mass/Vol] T3, FREE (TRIDOTHYRONINE) (00317) [facility] Work Phone: Start: 07-02-2010 Provider Instruction s for Treatment [facility] Work Phone: Start: 06-25-2010 Free T3 [Mass/Vol] T3, FREE (TRIDOTHYRONINE) (43870) [facility] Work Phone: Start: 06-25-2010 Free T4 [Mass/Vol] T4, FREE (T HYROXINE) (19579) [facility] Work Phone: Start: 06-25-2010 TSH Qn TSH (56940) [facility] Work Phone: Comment on above: please repeat Start: 06-22-2010 TSH Qn TSH (01252) [facility] Work Phone: Start: 06-22-2010 Blood count complete automated CBC (AUTO) (56547) [facility] Work Phone: Start: 06-22-2010 Provider Instruction s for Treatment Lower Extremity Edema Education [facility] Work Phone: Start: 04-06-2010 Provider Instruction s for Treatment FOLLOW UP IN 1 MONTH [facility] Work Phone: Start: 03-21-2010 Provider Instruction s for Treatment [facility] Work Phone: Start: 03-21-2010 S. pyogenes Ag IA Ql (Unsp spec) Rapid Strep Test, Office (85265) [facility] Work Phone: Start: 01-22-2010 Comprehensive metabo lic panel METABOLIC PANEL, COMPREHENSIVE (72151) [facility] Work Phone: Start: 01-22-2010 TSH Qn TSH (74171) [facility] Work Phone: Start: 01-22-2010 Gonadotropin chorion ic qualitative TEST - SERUM QUANTITATIVE (HCG) (35947) [facility] Work Phone: Start: 01-22-2010 Blood count complete automated CBC (AUTO) (16372) [facility] Work Phone: Start: 01-22-2010 Cytp cerv/vag auto t hin layer prep mnl screen Thin prep Pap (66391) [facility] Work Phone: Start: 01-22-2010 Provider Instruction s for Treatment [facility] Work Phone: Start: 10-03-2009 Provider Instruction s for Treatment [facility] Work Phone: Start: 2009 DIABETES SCREEN DIABETES SCREEN [facility] Start: 2009 LIPID SCREEN LIPID SCREEN [facility] Start: 08-25-2008 Provider Instruction s for Treatment Reviewed Diagnostic Tests [facility] Work Phone: Start: 05-24-2008 Provider Instruction s for Treatment Antibiotic Usage Education - Female [facility] Work Phone: Start: 02-02-2008 Provider Instruction s for [facility] Work Phone: Start: 03-30-2007 Provider Instruction s for Treatment FOLLOW UP NEEDED [facility] Work Phone: Start: 03-10-2007 Provider Instruction s for Treatment [facility] Work Phone: Start: 01-02-2007 Provider Instruction s for Treatment [facility] Work Phone: Start: 07-30-2006 Provider Instruction s for Treatment [facility] Work Phone: Start: 2004 Mammography MAMMOGRAM [facility] Start: 1994 HPV TESTING HPV TESTING [facility] Start: 1985 PAP TESTING PAP TESTING [facility] Start: 07-10-1983 Urine microalbumin profile DTAP,TDAP,TD (1 - Tdap) [facility] Start: 1982 HEPATITIS C SCREENING HEPATITIS C SC PHUONG [facility] Start: 1982 HIV SCREENING HIV SCREENING [facility] Start: 1976 Adult depression screening assessment DEPRESSION SCREENING [facility] CT Chest [facility] Work Phone: DXA Bone [Mass/Area] Bone density [facility] MG Breast - bilatera l Screening [facility] Work Phone: MG Breast - bilatera l Screening [facility] Patient referral [facility] Work Phone: T4 free measurement [facility] Work Phone: Thyroid stimulating hormone measurement [facility] Work Phone: [facility] Work Phone: [facility] Work Phone[facility] Work Phone: [facility] Work Phone: [facility] Work Phone[facility] Work Phone[facility] Work Phone[facility] Work Phone: [facility] Work Phone: [facility] Work Phone: [facility] Work Phone: [facility] Work Phone: [facility] Work Phone[facility] Work Phone: [facility] Work Phone: [facility] Work Phone: [facility] Work Phone: Immunizations Immunization Date Immunization Notes Care Provider [facility] 02-01-2021 influenza, injectabl e, quadrivalent, preservative free Dr. Teri Muller Work Phone: [facility] 02-01-2021 influenza, seasonal, injectable Dr. Teri Muller Work Phone: [facility] 02-07-2020 influenza, injectabl e, quadrivalent, preservative free Dr. Teri Muller Work Phone: [facility] 02-07-2020 influenza, seasonal, injectable Dr. Teri Muller Work Phone: [facility] 03-15-2019 influenza, injectabl e, quadrivalent, preservative free Dr. Teri Muller Work Phone: [facility] 03-15-2019 influenza, seasonal, injectable Dr. Teri Muller Work Phone: [facility] 01-05-2018 influenza, injectabl e, quadrivalent, preservative free Dr. Teri Muller Work Phone: [facility] 01-05-2018 influenza, seasonal, injectable Dr. Teri Muller Work Phone: [facility] 01-30-2017 influenza, injectabl e, quadrivalent, preservative free Dr. Teri Muller Work Phone: [facility] 01-30-2017 influenza, seasonal, injectable Dr. Teri Muller Work Phone: [facility] 01-19-2016 influenza, injectabl e, quadrivalent, preservative free Dr. Teri Muller Work Phone: [facility] 01-19-2016 influenza, seasonal, injectable Dr. Teri Muller Work Phone: [facility] 02-27-2015 influenza, injectabl e, quadrivalent, preservative free Dr. Teri Muller Work Phone: [facility] 02-27-2015 influenza, seasonal, injectable Dr. Teri Muller Work Phone: [facility] 06-27-2014 measles, mumps and rubella virus vaccine Dr. Teri Muller Work Phone: [facility] 06-27-2014 tetanus toxoid, redu ramin diphtheria toxoid, and acellular pertussis vaccine, adsorbed Dr. Teri Muller Work Phone: [facility] 01-19-2010 pneumococcal polysaccharide vaccine, 23 valent Rj Beyerbody Work Phone: [facility] Payers Date Payer Category Payer Self-pay [id number] 2014 Unknown [id number] 2014 Unknown [id number] 2011 Unknown [employer] SELF PAY SELF PAY [id number] 2011-Present [phone] [place] [id number] Indemnity [id number] 2006 Unknown [facility] [id number] 2006-2014 Indemnity [id number] 1964 Unknown [id number] Unknown [facility] [place] Unknown [id number] Unknown [id number] Unknown [id number] Unknown [id number] Unknown [id number] Unknown [id number] Unknown [id number] Unknown [id number] Social History Date Type Detail Facility Caffeine Use Caffeine Use [facility] Work Phone: Comment on above: 2-3 cups qd 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, 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 Tobacco use: Tobacco use: [facility] Work Phone: Start: 03-19-2011 End: 05-14-2023 Tobacco smoking status MOIS Former smoker [facility] Start: 03-19-2011 Tobacco use and exposure Never used [facility] Work Phone: Start: 03-19-2011 Alcohol intake Current non-dr welder oxyhydrogen of alcohol (finding) [facility] Start: 1965 Sex Assigned At Not on file [facility] Start: 02-06-2022 End: 02-12-2023 Tobacco smoking status [facility] Unknown if ever smoked [facility] Start: 1965 Sex Assigned At Female W [facility] Sex Female [facility] Clinical Notes 05-13-2011 to 10-30-2022 Telephone Encounter - Leeroy Perez, Lindsay - 05/13/2011 11:12 AM EST Note Date & Type Note Facility 10-30-2022 Note [facility] Pap Smear Specimen Adequacy October 30, 2022 11:59pm Comment . Satisfactory for evaluation. Endocervical and/or squamous metaplasticcells (endocervical component) are present. Comment on above: Satisfactory for milan luation. Endocervical and/or squamous metaplasticcells (endocervical component) are present. 10-30-2022 Note [facility] Pap Smear Specimen Adequacy October 30, 2022 11:59pm Comment . Satisfactory for evaluation. Endocervical and/or squamous metaplasticcells (endocervical component) are present. Comment on above: Satisfactory for milan luation. Endocervical and/or squamous metaplasticcells (endocervical component) are present. 05-13-2011 Miscellaneous Notes Received [place] papers on 04/03. 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 Left knee pain acute Primary osteoarthritis of left knee acute [facility] Work Phone: evaluation note* Diagnosis Onset Date Resolution Status Acute sinusitis acute Acute pharyngitis acute Post-menopausal acute Preventative health care acu te Hypothyroid chronic Stage 2 moderate COPD by GOLD classification chronic [facility] Work Phone: evaluation note* Diagnosis Onset Date Resolution Status Acute pharyngitis acute Post-menopausal acute Preventative health care acu te Hypothyroid chronic Stage 2 moderate COPD by GOLD classification chronic Encounter for routine gynecological examination noneactive [facility] Work Phone: evaluation note* Diagnosis Onset Date Resolution Status Acute pharyngitis acute Post-menopausal acute Preventative health care acu te Hypothyroid chronic Stage 2 moderate COPD by GOLD classification chronic Encounter for routine gynecological examination noneactive Osteopenia with high risk of fracture acute Hypothyroid chronic [facility] Work Phone: evaluation note* Diagnosis Onset Date Resolution Status Osteopenia with high risk of fracture acute Preventative health care acu te [facility] Work Phone: Evaluation noteNo assessment information available [facility] Work Phone: Hospital Discharge instructionsAmbulatory Orders* [employer] Location: None Selected [facility] Work Phone: Reason for referral (narrative)No reason for referral information available[facility] Work Phone: Summary Purpose Family History No Family History Records FoundUnknown Family Member Name Dates Details Non-Contributory Family Hist ory Status:Active Relationship Condition Age at Onset Recorded Date/T smith mother Asthma Unknown Cardiac disease Unknown Malignant neoplasm Unknown father Diabetes mellitus Unknown Hypertension Unknown sister Disorder of thyroid Unknown brother Diabetes mellitus Unknown Relationship Condition Age at Onset Recorded Date/T smith mother Asthma Unknown Cardiac disease Unknown Malignant neoplasm 35 father Diabetes mellitus Unknown Hypertension Unknown Malignant neoplasm Unknown sister Disorder of thyroid Unknown brother Diabetes mellitus Unknown Advance Directives No Advanced Directives Records FoundNo Advanced Directives Records Found Instructions Name Dates Details How to access health [employer] tion online Indication:Pneumonia Start:30-Mar-2015 Instruction Type:Patient Education [...] acute Start:18-Mar-2012 Instruction Type:Provider Instructions for Treatment Chief Complaint and Reason for Visit Chief Complaint WELLNESS VISIT Reason for Visit Preventative health care Chief Complaint WELLNESS VISIT 1 Y FU NICOTINE DEPENDENCE Reason for Visit Preventative health care Hypothyroid Chief Complaint WELLNESS VISIT 1 Y FU NICOTINE DEPENDENCE 9 MONTH FU SCREENING LEFT KNEE PAIN/UNKNOWN INJURY EORDER- Left knee pain Reason for Visit Preventative health care Hypothyroid Seasonal allergies Smoking greater than 30 pack years Stage 2 moderate COPD by GOLD classification Left knee pain Primary osteoarthritis of left knee Chief Complaint BILATERAL EAR COMPLA INTS SORE THROAT/LEFT EAR PAIN 1 Y FU Reason for Visit Acute sinusitis Acute pharyngitis Post-menopausal Prevent[facility] care Hypothyroid Stage 2 moderate COPD by GOLD classification Chief Complaint SORE THROAT/LEFT EAR PAIN 1 Y FU 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 for Visit Acute pharyngitis Post-menopausal Preventative health care Hypothyroid Stage 2 moderate COPD by GOLD classification Encounter for routine gynecological examination Chief Complaint SORE THROAT/LEFT EAR PAIN 1 Y FU 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) DISCUSS OSTEOPINA TREATMENTS Reason for Visit Acute pharyngitis Post-menopausal Preventative health care Hypothyroid Stage 2 moderate COPD by GOLD classification Encounter for routine gynecological examination Osteopenia with high risk of fracture Hypothyroid Chief Complaint EMPLOYEE 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 INSURANCE FORM SCREENING Reason for Visit Osteopenia with high risk of fracture Preventative health care Chief Complaint Admit Date EMPLOYEE LABS December 27, 2024 7:02am SCREENING, POSTMENOPAUSAL STATE January 20, 2025 3:51pm SHOULDER PAIN January 21, 2025 10 :15am shoulder pain- RIGHT January 21, 2025 1 0:50am Additional Source Comments INFORMATION SOURCE (unrecogn ized section and content) DATE CREATED AUTHOR 01/02/2019 [facility] DATE CREATED AUTHOR AUTHOR'S ORGANIZ ATION 03/04/2025 [facility] Source Comments (unrecognize d section and content) In the event this informatio n is protected by the Federal Confidentiality of Alcohol and Drug Abuse Patient Records regulations: The Federal rules restrict any use of the information to criminally investigate or prosecute any alcohol or drug abuse patient.[facility] Reason for Visit (unrecogniz ed section and content) Reason Onset Date Comments Disability David 04/03/2011 Goals (unrecognized section and content) Goals may be documented in a n alternate sectionGoals may be documented in an alternate sectionGoals may be documented in an alternate sectionGoals may be documented in an alternate sectionGoals may be documented in an alternate sectionGoals may be documented in an alternate sectionGoals may be documented in an alternate sectionGoals may be documented in an alternate section Care Teams (unrecognized sec tion and content) Team Status: Active Member Role Status Dates Dr. Ruba Streeter MD Family Provider Active Dr. Teri Muller MD Primary Care Provider Active Team Status: Inactive Member Role Status Dates Dr. Teri Muller MD Primary Care P rahel, Attending Provider, Referring Provider Active Team Status: Inactive Member Role Status Dates Dr. Teri Muller MD Primary Care Provider, Refer ring Provider Active Levi RICHARD, PA Attending Provider Active Team Status: Inactive Member Role Status Dates Dr. Teri Muller MD Primary Care Provider Active Dr. Randal Kaur MD Attending Provider, Referring Provi dinesh Active Team Status: Active Member Role Status Dates Dr. Ruba Streeter MD Family Provider Active Team Status: Inactive Member Role Status Dates Dr. Teri Muller MD Referring Provider Active Mindy Glover CNM Attending Provider Active Team Status: Inactive Member Role Status Dates Mindy Glover CNM Attending Provider, Referring Pr ovider Active Team Status: Inactive Member Role Status Dates Dr. Teri Muller MD Attending Provider, Referrin g Provider Active Team Status: Inactive Member Role Status Dates Dr. Teri Muller MD Attending Provider Active Team Status: Inactive Member Role Status Dates Dr. Teri Muller MD Primary Care Provider Active Dr. Jefferson Shi MD Attending Provider, Referring Pr ovider Active Team Status: Inactive Member Role Status Dates Dr. Teri Muller MD Primary Care Provider, Atten ding Provider Active Team Status: Active Member Role Status Dates Dr. Teri Muller MD Primary Care Provider Active Health Risk Assessment Attending Provider, Referring P rovider Active Team Status: Active Member Role/Relationship Status Dates Dr. Ya Garibay DO Primary care physician Active Team Status: Inactive Member Role/Relationship Status Dates Dr. Ya Garibay DO Primary care physician Active Start: October 19, 2024 Dr. Maya Monk MD Attending physician Active Start: October 19, 2024 Team Status: Active Member Role/Relationship Status Dates Dr. Ya Garibay DO Primary care physician Active Start: December 27, 2024 Health Risk Assessment Attending physician Active Start: December 27, 2024 Health Risk Assessment Referring Provider Active Start: December 27, 2024 Team Status: Active Member Role/Relationship Status Dates Dr. Ya Garibay DO Primary care physician Active Start: January 20, 2025 Dr. Ya Garibay DO Attending physician Active Start: January 20, 2025 Dr. Ya Garibay DO Referring Provider Active Start: January 20, 2025 Team Status: Inactive Member Role/Relationship Status Dates Dr. Ya Garibay DO Primary care physician Active Start: January 21, 2025 End: January 21, 2025 Dr. Ya Garibay DO Referring Provider Active Start: January 21, 2025 End: January 21, 2025 JOSE MANUEL Schaffer Attending physician Active St art: January 21, 2025 End: January 21, 2025 Team Status: Active Member Role/Relationship Status Dates Dr. Ya Garibay DO Primary care physician Active Start: January 21, 2025 JOSE MANUEL Schaffer Attending physician Active St art: January 21, 2025 JOSE MANUEL Schaffer Referring Provider Active Sta rt: January 21, 2025 FOR RECORDS PERTAINING TO PATIENTS WHO ARE [...] BE BASED ON THE PRIMARY CLINICAL RECORDS. [facility] [employer] provides no warranty or guarantee of the accuracy or completeness of information in this document.
--- NOTE | 2025-03-23 18:30 | CT_ITS ---
PROCEDURE: LOW DOSE CT LUNG SCREENING 03/23/2025 REASON FOR EXAM: SMOKER QUIT 2019 TECHNIQUE: Procedure Code: [id number] Modality: CT Procedure: LOW DOSE CT LUNG SCREENING Coronal and Sagittal reconstruction series were provided. One or more dose reduction techniques were used (e.g., Automated exposure control, adjustment of the mA and/or kV according to patient size, use of iterative reconstruction technique). REFERENCE LINK: [facility] Lung-RADS COMPARISON: CT chest 03/23/2024 FINDINGS: PULMONARY NODULES: (Only nodules >3mm are reported) Pulmonary Nodules: None. Hardware:None. Lymph Nodes:No enlarged mediastinal, hilar, or axillary lymph nodes. Heart and Vasculature:Nonenlarged. No pericardial effusion.Atherosclerotic calcifications of the thoracic aorta. Thoracic aorta and pulmonary arteries have normal contours; noncontrast technique limits evaluation. Coronary Artery Calcifications: Absent Lungs and Airways: Redemonstrated emphysematous changes. Stable scarring of the lung apices, [id number]. No focal consolidation. Airways are patent. Pleura:No pleural effusion or pneumothorax. Upper Abdomen:Status post cholecystectomy and splenectomy. Otherwise unremarkable. Bones:Degenerative changes of the thoracic spine. No acute fractures. CT/Low Dose CT Lung Screening IMPRESSION: No pulmonary nodules. Stable emphysematous changes and biapical scarring. Lung-RADS Category: 2 BENIGN (BASED ON IMAGING FEATURES OR INDOLENT BEHAVIOR). RECOMMEND 12-MONTH SCREENING LDCT. Reading [facility]
== END | disposition home or self-care (01) ==
LOC: CT 18:23
PROVIDERS: PCP Internal Medicine; Referring Provider Nurse Practitioner Acute Care; Visit Provider Nurse Practitioner Acute Care
DX: Z12.2 Encounter for screening for malignant neoplasm of respiratory organs (principal); F17.210 Nicotine dependence, cigarettes, uncomplicated
CPT/HCPCS: 71271